=== PATIENT | female | born 1970 | race Caucasian/White ===

== ENCOUNTER 2022-06-01 18:31 | Emergency (ER) | payer OTHER, SELFPAY ==
--- NOTE | ~2022-06-01 | XR_ITS ---
EXAMINATION: XR CHEST CLINICAL INFORMATION: Chest pain. COMPARISON: None available. TECHNIQUE: Frontal portable view of the chest was obtained. 7:26 PM FINDINGS: No significant abnormality is noted involving the heart, lungs, mediastinum, bony thorax or soft tissues. XR/XR chest 1V IMPRESSION: Unremarkable examination.
--- NOTE | ~2022-06-01 | CT_ITS ---
EXAMINATION: CT ABDOMEN AND PELVIS WITH CONTRAST CLINICAL INFORMATION: Abdominal pain. COMPARISON: None available. TECHNIQUE: Multidetector volumetric images were obtained from the superior aspect of the liver through the pubic symphysis following administration 85 mL of Omnipaque 350 intravenous contrast. Sagittal and coronal reformatted images were obtained on the technologist's workstation. Oral contrast: No This CT examination was performed using dose optimization techniques as appropriate, variously including the following: *Automated exposure control *Adjustment of mA and/or kV according to patient size (this includes techniques or standardized protocols for targeted exams where dose is matched to indication/reason for exam; i.e. extremities or head) *Use of iterative reconstruction technique DLP: 1041. mGy-cm FINDINGS: LUNG BASES: The visualized lung bases are unremarkable. LIVER, GALLBLADDER, AND BILIARY TREE: Liver mildly enlarged measuring 23 cm superior inferior. There is no focal liver lesion. The gallbladder is unremarkable with no evidence of radiopaque gallstones, gallbladder wall thickening, or obvious pericholecystic inflammatory changes. PANCREAS: Unremarkable. SPLEEN: Unremarkable. ADRENAL GLANDS: Unremarkable. KIDNEYS AND URETERS: Horseshoe kidney. No renal or ureteral calculus. No hydronephrosis. BLADDER: Unremarkable. GASTROINTESTINAL TRACT: The small and large bowel are unremarkable. The appendix is unremarkable. ABDOMINAL WALL: No significant hernia is appreciated. LYMPH NODES: Normal. VASCULAR: Unremarkable. PELVIC VISCERA: Unremarkable. OSSEOUS STRUCTURES: Unremarkable. CT/CT abdomen pelvis w IV con IMPRESSION: 1. No acute abnormality CT scan abdomen pelvis. 2. Mild hepatomegaly. 3. Horseshoe kidney. Fleischner guidelines were followed.
[2022-06-01 18:39] VITALS: BP 142/90; PULSE 120; O2SAT 100
[2022-06-01 18:44] VITALS: BP 122/83; PULSE 110; RESP 22; TEMP 37.2; O2SAT 100; BMI 40.6
--- NOTE | 2022-06-01 19:03 | PC.NURSE ---
Report received from day shift RN. Awaiting provider eval.
[2022-06-01 19:09] VITALS: BP 119/84; PULSE 101; RESP 22; O2SAT 98
--- NOTE | 2022-06-01 19:15 | ECG_ITS ---
Test Reason : SEIZURE Blood Pressure : / mmHG Vent. Rate : 086 BPM Atrial Rate : 086 BPM P-R Int : 138 ms QRS Dur : 080 ms QT Int : 390 ms P-R-T Axes : -03 -25 016 degrees QTc Int : 466 ms Normal sinus rhythm Nonspecific T wave abnormality Prolonged QT Abnormal ECG When compared with ECG of 29-NOV-2017 22:37, Nonspecific T wave abnormality now evident in Anterior leads Referred By: Yakov Reyes Electronically Signed By:NIKI LYNN MD
--- NOTE | 2022-06-01 19:22 | ED_ITS ---
HPI - General Adult General Chief complaint: General Medical Stated complaint: ams ?seizure Time Seen by Provider: 06/01/22 19:03 Source: patient and family Mode of arrival: ambulatory Limitations: no limitations History of Present Illness HPI narrative: 51-year-old female with history of seizure disorder on Keppra 500 mg twice daily presents with a seizure. Patient had a seizure last night as well. Today's maría larios was not immediately Witness but significant other found her sleeping. She did lose control of her bladder and she did buy the back of her tongue on the right side. She denies any head injury, headache, nausea, vomiting, vision changes. She does have some generalized chest abdominal pain. Pain is moderate in nature. The pain is worse with movement and touch. She has had similar symptoms in the past when she has been postictal. She denies any drugs or alcohol. She denies any focal deficits. She agrees that she has been not specifically compliant with her medications. Patient does not drive. Patient describes her seizures symptoms as moderate to severe in nature. There are no c lear relieving features. With exacerbated by not taking her medications. Related Data Allergies Allergy/AdvReac Type Severity Reaction Status Date / Time iodine [IODINE] Allergy Unknown UNKNOWN Unverified 07/29/21 14:19 shellfish Allergy Unknown Uncoded 07/29/21 14:19 [facility] Social History Social History Advance Directives: No Advance Directives Information Provided: No Physical Exam ED Vital Signs: Vital Signs - 24 hr 06/01/22 18:44 06/01/22 19:09 Temperature 98.9 F Pulse Rate 110 H 101 H Respiratory Rate 22 H 22 H Blood Pressure 122/83 119/84 Pulse Oximetry 100 98 Oxygen Delivery Method Room Air Room Air BMI result Body Mass Index 40.6 GEN: Well developed, no acute distress, alert, oriented HEENT: Normocephalic, atraumatic, normal external ears, nose appears normal, no oropharyngeal edema or exudates Eyes: Normal to appearance Neck: Supple, no lymphadenopathy Respiratory: Talks in complete sentences, no respiratory distress, clear to auscultation bilaterally Cardiovascular: Regular rate and rhythm, no murmurs rubs or gallops Abdomen: Soft, diffusely tender with guarding but no rebound Chest wall: Tenderness to palpation Back: No CVA tenderness Extremities: No clubbing cyanosis or edema Neurologic: No focal neurologic deficits, cranial nerves 2-12 intact, strength is 5/5 bilaterally, gait normal Skin: No rash Course Course Course Narrative: 51-year-old female with history of seizure disorder presents with 2 seizures within the last 24 hours. She had 1 prior to arrival. She admits to being n oncompliant with her medications. This is the most likely etiology of her symptoms. Will obtain a basic metabolic panel to rule out other electrolyte deficiencies neck contribute. Also will order a alcohol screen. Patient has chest wall pain which I will get a chest x-ray to rule out any significant injury. She also has abdominal tenderness with guarding but no rebound. Given these findings, CT scan of the abdomen and pelvis seems reasonable to rule out any acute intra-abdominal process. Will provide patient with a dose of Keppra 500 mg orally and Tylenol for her pain and discomfort. Reevaluation(s) Reevaluation #1: patient is pending CT sccan abd for pain. Patient's care transitioned to Dr. Claros pending results. Time: 22:20 Medications Administered Discontinued Medications Generic Name Dose Route Start Last Admin Trade Name Freq PRN Reason Stop Dose Admin Acetaminophen 975 mg 06/01/22 19:17 06/01/22 19:57 Acetaminophen 325 Mg Tablet PO 06/01/22 19:18 975 mg ONCE ONE Administration Levetiracetam 500 mg 06/01/22 19:17 06/01/22 19:57 Levetiracetam 500 Mg Tablet PO 06/01/22 19:18 500 mg ONCE ONE Administration Medical Decision Making Medical Decision Making [facility] Narrative: 51-year-old female presents with seizure likely secondary to noncompliance with her Keppra medication. Fortunately, patient is not driving at this time and she has been given strict instructions not to drive until cleared by her neurologist. Patient has some abdominal tenderness which is concerning for an abdominal injury. Will obtain a CT scan the abdomen pelvis to rule this out. Patient complains of chest wall pain. I doubt acute cardiothoracic injury but will obtain an EKG and a chest x-ray to rule out any of these issues. Patient will have routine lab testing including a toxicology screen and a an ethanol level to rule out contributing features that could have caused her seizure. Differential Diagnosis Differential Diagnoses: The differential diagnosis associated with the presentation includes (Seizure disorder, medication noncompliance, electrolyte abnormality, hypoglycemia, substance use) Seizure disorder Lab Data MDM Lab Attestation statement: I reviewed the patient's lab results. 06/01/22 19:51 06/01/22 19:51 Labs: Lab Results 06/01/22 06/01/22 Range/Units 19:51 21:41 WBC 7.2 (4.8-10.8) X10*3/uL RBC 5.21 (4.20-5.50) X10*6/uL Hgb 15.3 (12.0-16.0) g/dl Hct 46.0 (37.0-47.0) % MCV 88.3 (80.0-98.0) fL MCH 29.4 (27.0-33.0) pg MCHC 33.3 (31.0-35.0) g/dl RDW 14.7 (11.0-16.0) % Plt Count 137 L (160-400) X10*3/uL MPV 14.2 H (9.4-12.3) fL Immature Gran % (Auto) 0.3 (0.0-0.4) % Neut % (Auto) 61.0 (45-73) % Lymph % (Auto) 29.1 (20-40) % [place] % (Auto) 6.8 (2-11) % Eos % (Auto) 2.2 (0-4) % Baso % (Auto) 0.6 (0-2) % Lymph # (Auto) 2.1 (1.2-4.9) X10*3/uL [place] # (Auto) 0.5 (0.1-1.2) X10*3/uL Eos # (Auto) 0.2 (0.0-0.4) X10*3/uL Baso # (Auto) 0.0 (0.0-0.2) X10*3/uL Abs Immat Gran (auto) 0.02 (0.00-0.03) X10*3/uL Absolute Neuts (auto) 4.4 (2.0-8.3) x10*3/uL Absolute Nucleated RBC 0.000 (0.0-0.012) X10*3/uL Nucleated RBC % (auto) 0.0 (0.0-0.2) /100WBC Sodium 140 (135-145) mmol/L Potassium 3.6 (3.3-5.1) mmol/L Chloride 109 H (96-108) mmol/L Carbon Dioxide 22 (22-29) mmol/L Anion Gap 13 (12-20) BUN 19 H (9-16) mg/dL Creatinine 0.72 (0.5-1.4) mg/dL Estim Creat Clear Calc 124.0 Estimated GFR > 60 Random Glucose 114 (60-115) mg/dL Calcium 8.9 (8.4-10.2) mg/dL Ethyl Alcohol < 10 mg/dL Independent Interpretation I performed an independent interpretation of an: EKG (Normal sinus rhythm heart rate 86, nonspecific T-wave changes noted in lead 3 and AVF, V2 through V6. No acute ST elevations or depressions, otherwise QTC is slightly prolonged.) and CT Scan Radiology Impression Discussion of test interpretation with radiology: I have reviewed the radiologist's reading. Independent Historian Clinical information obtained from an independent historian. History obtained from or confirmed by: Spouse Tests considered The following testing was considered but not selected: CT scan head and chest Prescription Management I considered prescription management with: Pain Medication Chronic Conditions Patient?s care impacted by: Other (Seizure disorder) Discharge Plan Discharge Clinical Impression: Seizure disorder, Abdominal pain, Acute chest wall pain Patient Disposition: Still a Patient Instructions: Abdominal Pain (ED), Recurrent Seizures in Adults (ED), Noncardiac Chest Pain (ED), Chest Wall Pain (ED) Additional Instructions: Plase make sure to take your medications as prescribed. Follow up with your neurologist in 1 week. No driving until cleared by your neurologist. Referrals: Aleyda Lua NP [Primary Care Provider] - 3 days
[2022-06-01 19:56] LABS: MANUAL DIFF FLAG NO
[2022-06-01] MEDS: Acetaminophen 325 MG TABLET 975 MG PO (19:57)
[2022-06-01] MEDS: levETIRAcetam 500 MG TABLET PO (19:57)
[2022-06-01 19:58] LABS: Basophils Percent Auto 0.6 % (0-2); Eosinophils Absolute Auto 0.2 X10*3/uL (0.0-0.4); Eosinophils Percent Auto 2.2 % (0-4); Hemoglobin 15.3 g/dl (12.0-16.0); Imm Gran Abs Auto 0.02 X10*3/uL (0.00-0.03); Imm Gran Pct Auto 0.3 % (0.0-0.4); Lymphocytes Absolute Auto 2.1 X10*3/uL (1.2-4.9); Lymphocytes Percent Auto 29.1 % (20-40); Mean Corpuscular HGB Conc 33.3 g/dl (31.0-35.0); Mean Corpuscular Hemoglobin 29.4 pg (27.0-33.0); Mean Corpuscular Volume 88.3 fL (80.0-98.0); Mean Platelet Volume 14.2 fL (9.4-12.3); Monocytes Absolute Auto 0.5 X10*3/uL (0.1-1.2); Monocytes Percent Auto 6.8 % (2-11); Neutrophils Absolute Auto 4.4 x10*3/uL (2.0-8.3); Platelet Count 137 X10*3/uL (160-400); Red Blood Count 5.21 X10*6/uL (4.20-5.50); Red Cell Distribution Width 14.7 % (11.0-16.0); White Blood Count 7.2 X10*3/uL (4.8-10.8)
[2022-06-01 22:12] LABS: Anion Gap 13 (12-20); Blood Urea Nitrogen 19 mg/dL (9-16); Calcium 8.9 mg/dL (8.4-10.2); Carbon Dioxide 22 mmol/L (22-29); Chloride 109 mmol/L (96-108); Estimated Glomerular Filt Rate > 60; Ethanol < 10 mg/dL; Glucose Random 114 mg/dL (60-115); Potassium 3.6 mmol/L (3.3-5.1); Sodium 140 mmol/L (135-145)
[2022-06-01] MEDS: iohexoL 350 MG/ML 100 ML INFUS..BTL IV (22:33)
[2022-06-02 00:03] VITALS: BP 104/65; PULSE 83; RESP 16; TEMP 36.6; O2SAT 99
== END 2022-06-02 00:39 | disposition home or self-care (01) ==
PROVIDERS: Emergency Provider Emergency Medicine; PCP Nurse Practitioner Family
DX: G40.909 Epilepsy, unspecified, not intractable, without status epilepticus (principal); R07.89 Other chest pain; R10.9 Unspecified abdominal pain; Z79.899 Other long term (current) drug therapy
CPT/HCPCS: 36415; 71045; 74177; 80048; 82077; 85025; 93005; 99284; Q9967

== ENCOUNTER 2023-05-16 23:56 | Inpatient (IN) | payer OTHER, SELFPAY ==
--- NOTE | ~2023-05-16 | US_ITS ---
EXAMINATION: US VENOUS ULTRASOUND WITH DOPPLER LOWER EXTREMITY, BILATERAL CLINICAL INFORMATION: Elevated d-dimer. The workup COMPARISON: None available. TECHNIQUE: Ultrasound of the deep veins is performed from the hip to the calf with compression sonography and color and pulse Doppler assessment. Spectral analysis with color-flow imaging is performed. FINDINGS: RIGHT: There is normal venous compression and respiratory variation and augmented flow. The visualized common femoral vein, superficial femoral vein, profunda femoral vein, popliteal vein, and the trifurcation region shows no evidence of deep venous thrombosis. There is no significant popliteal fossa cyst. LEFT: There is normal venous compression and respiratory variation and augmented flow. The visualized common femoral vein, superficial femoral vein, profunda femoral vein, popliteal vein, and the trifurcation region shows no evidence of deep venous thrombosis. There is no significant popliteal fossa cyst. If the patient's symptoms persist, followup ultrasound in 5 days 7 days might be of value to exclude proximal propagation from a non-visualized calf vein. US/US venous duplex LE BI IMPRESSION: No DVT demonstrated in the bilateral lower extremity.
--- NOTE | ~2023-05-16 | XR_ITS ---
EXAMINATION: XR CHEST CLINICAL INFORMATION: Excess ribs fracture COMPARISON: Chest radiograph from same day earlier TECHNIQUE: Frontal view of the chest was obtained. FINDINGS: There is progression of opacities seen throughout both lungs bilateral extensive airspace disease. Cardiomediastinal silhouette is obscured. Visualized ribs demonstrate no obvious fractures. XR/XR chest 1V IMPRESSION: Evidence of bilateral airspace
--- NOTE | ~2023-05-16 | NM_ITS ---
PULMONARY PERFUSION ONLY STUDY: CLINICAL INDICATION: Hypoxia. Concern for pulmonary thromboembolism. PROCEDURE: Following the intravenous administration of 4.1 millicuries technetium 99m MAA, images of the chest were obtained in multiple projections using a gamma scintiphotographic camera. COMPARISON: Chest radiograph and CT scan of the chest done on 05/17/2023. PERFUSION IMAGES: No segmental perfusion defects or other perfusion abnormalities are noted. NM/NM pul perfusion IMPRESSION: Based on perfusion only modified PIOPED 2 criteria, pulmonary thromboembolism is absent.
--- NOTE | ~2023-05-16 | CT_ITS ---
EXAMINATION: CT CHEST WITHOUT CONTRAST CLINICAL INFORMATION: Unusual chest x-ray, fever, cough COMPARISON: Chest x-ray from the same day TECHNIQUE: Multidetector volumetric CT imaging of the chest was done. Axial MIP volume rendering provided. Sagittal and coronal reformatted images were obtained. This CT examination was performed using dose optimization techniques as appropriate, variously including the following: *Automated exposure control *Adjustment of mA and/or kV according to patient size (this includes techniques or standardized protocols for targeted exams where dose is matched to indication/reason for exam; i.e. extremities or head) *Use of iterative reconstruction technique DLP: 404 mGy-cm FINDINGS: LUNGS: There is a symmetric distribution of extensive bilateral groundglass opacities with relative sparing of the lung periphery. There is limited evaluation for underlying nodules in this setting. MEDIASTINUM: Multiple scattered subcentimeter mediastinal lymph nodes, a few of which measure near the upper limits of normal in size and which may be reactive. Cardiac size is within normal limits; no pericardial effusion. Mild calcification at the aortic arch. CORONARY ARTERY CALCIFICATION: Scattered coronary artery calcifications. PLEURA: No pneumothorax or pleural effusion. AXILLA: No lymphadenopathy. UPPER ABDOMEN: Visualized spleen is mildly prominent. OSSEOUS STRUCTURES: Multilevel endplate osteophytes in the spine. CT/CT chest wo IV con IMPRESSION: 1. Symmetric distribution of extensive bilateral groundglass opacities with relative sparing of the lung periphery. In the proper clinical setting, this appearance can be seen with infection including viral pneumonia, though other considerations would include pulmonary edema, pulmonary hemorrhage, or potentially pulmonary alveolar proteinosis. Follow-up imaging within several weeks is recommended to assess for resolution. 2. Coronary artery calcifications. Correlation with cardiac risk factors is recommended.
--- NOTE | ~2023-05-16 | XR_ITS ---
EXAMINATION: XR CHEST CLINICAL INFORMATION: Fever and dyspnea COMPARISON: Chest radiograph 06/01/2022 TECHNIQUE: Frontal view of the chest was obtained. FINDINGS: Multifocal reticular nodular opacities are seen throughout the lungs which are new when compared to the prior study. Heart size is normal. Given the history of fever and dyspnea, findings may represent diffuse pneumonia. Neoplasm is less likely. No pleural effusions are seen. Heart size normal. The bony thorax is unremarkable. There is an old healed left clavicular fracture. XR/XR chest 1V IMPRESSION: Multifocal reticular nodular opacities throughout the lungs. Findings may represent diffuse pneumonia. CT scan would be useful for further evaluation.
[2023-05-17] VITALS (25 sets, daily range): BP systolic 112–143; BP diastolic 62–87; PULSE 64–100; RESP 4–98; TEMP 36.4–37.1; O2SAT 4–98; BMI 40.3; BMI 40.0
--- NOTE | 2023-05-17 00:02 | ECG_ITS ---
Test Reason : SOB Blood Pressure : / mmHG Vent. Rate : 086 BPM Atrial Rate : 086 BPM P-R Int : 160 ms QRS Dur : 078 ms QT Int : 350 ms P-R-T Axes : 038 -09 025 degrees QTc Int : 418 ms Normal sinus rhythm Low voltage QRS Nonspecific T wave abnormality Abnormal ECG When compared with ECG of 01-JUN-2022 20:04, QT has shortened Referred By: Kenn Robles Electronically Signed By:Alberto Goldstein
--- NOTE | 2023-05-17 00:10 | ED_ITS ---
HPI - General Adult General Chief complaint: Dyspnea Stated complaint: sob Time Seen by Provider: 05/17/23 00:09 History of Present Illness HPI narrative: Patient is a 52-year-old woman who says that she is felt unwell for about 2 days ago with fever and a cough. Paramedics were called because she felt very short of breath tonight. Paramedics measured a temperature of 101 degrees. She has had some mild nausea and minimal vomiting. No urinary symptoms except that she loses urine when she coughs. Related Data Home Medications Medication Instructions Recorded Confirmed albuterol sulfate 90 mcg/actuation 2 puff inhalation Q4H PRN wheezing 05/17/23 05/17/23 aerosol inhaler blood sugar diagnostic (FreeStyle 05/17/23 Lite Strips) cholecalciferol (vitamin D3) 50 50 mcg PO DAILY 05/17/23 05/17/23 mcg (2,000 unit) tablet (Vitamin D3) cyclobenzaprine 10 mg tablet 10 mg PO BID PRN muscle spasm 05/17/23 05/17/23 duloxetine 60 mg capsule,delayed 60 mg PO DAILY 05/17/23 05/17/23 release gabapentin 800 mg tablet 800 mg PO DAILY 05/17/23 05/17/23 ipratropium 0.5 mg-albuterol 3 mg 3 ml inhalation Q6H 05/17/23 05/17/23 (2.5 mg base)/3 mL nebulization soln levothyroxine 137 mcg tablet 137 mcg PO DAILY 05/17/23 05/17/23 nabumetone 750 mg tablet 750 mg PO BID 05/17/23 05/17/23 omeprazole 20 mg capsule,delayed 20 mg PO DAILY 05/17/23 05/17/23 release trazodone 50 mg tablet 50 mg PO BEDTIME 05/17/23 05/17/23 umeclidinium 62.5 mcg/actuation 1 inh inhalation DAILY 05/17/23 05/17/23 blister powder for inhalation (Incruse Ellipta) Allergies Allergy/AdvReac Type Severity Reaction Status Date / Time iodine [IODINE] Allergy Unknown UNKNOWN Verified 05/17/23 00:29 shellfish Allergy Unknown Anaphylaxis Uncoded 05/17/23 00:29 Review of Systems 2 Review of Systems: Yes all other systems are reviewed and are negative [facility] Past Medical History Medical History Hypothyroidism GERD (gastroesophageal reflux disease) Mood disorder COPD (chronic obstructive pulmonary disease) Social History Social History Alcohol intake: former Patient Tobacco Use Status: Current everyday Tobacco user Smoked in Last 30 Days: Yes Use of substances other than those prescribed or required for medical reasons: No Advance Directives: No Advance Directives Information Provided: Yes Nutrition Risks: No Nutritional Risk Patient : No Physical Exam ED Vital Signs: Vital Signs - 24 hr 05/17/23 00:04 05/17/23 00:22 05/17/23 03:00 Temperature 98.6 F Pulse Rate 91 93 Respiratory Rate 30 H 28 H 28 H Blood Pressure 112/62 Pulse Oximetry 4 L Oxygen Delivery Method Nasal Cannula 05/17/23 05:49 Temperature Pulse Rate 100 Respiratory Rate 30 H Blood Pressure 126/67 Pulse Oximetry 92 Oxygen Delivery Method High Flow Nasal Cannula BMI result Body Mass Index 40.3 Const Other: The patient is an obese 52-year-old who looks older than her age. She was tachypneic and looked acutely ill. She was coughing frequently and having obvious discomfort with coughing. She looked quite pale. HENMT Other: Face is symmetrical. Poor dentition. Mucous membranes not obviously dry. Eyes Other: Pupils are round equal, conjunctivae clear, extraocular movements intact Neck Other: No JVD, no adenopathy Resp Other: The patient showed increased work of breathing, frequent coughing, and tachypnea. Breath sounds were diminished but without aditi wheezing or crackles. Cardio Rate: regular rate Rhythm: regular rhythm Heart sounds: S1 normal heart sound present and S2 normal heart sound present GI Other: Abdomen is soft and nontender Skin Other: Skin is pale and dry Neuro Other: The patient was awake but seemed very fatigued. She did not seem frankly disoriented but quite worn out. Speech was clear. Eye movements intact. Face symmetrical. Moves her extremities symmetrically. No focal deficit. Extrem Other: No calf swelling or tenderness, no asymmetry, no edema Medications Administered Generic Name Dose Route Start Last Admin Trade Name Freq PRN Reason Stop Dose Admin Albuterol/Ipratropium 3 ml 05/17/23 08:00 05/17/23 11:18 Albuterol/Iprat 2.5/0.5mg 3 Ml Ampul.Neb INHALE 3 ml RQ4H WHILE AWAKE EMEKA Administration Benzonatate 200 mg 05/17/23 05:50 05/17/23 12:49 Benzonatate 100 Mg Capsule PO 200 mg TID PRN Administration Cough Enoxaparin Sodium 40 mg 05/17/23 06:00 05/17/23 06:23 Enoxaparin Sodium 40 Mg/0.4 Ml Syringe SUBCUT 40 mg Q24H EMEKA Administration Azithromycin 500 mg/ Sodium 250 mls @ 125 mls/hr 05/17/23 06:00 05/17/23 09:38 Chloride IV Infused Q24H EMEKA Infusion Methylprednisolone Sodium Succinate 40 mg 05/17/23 06:00 05/17/23 06:23 Methylprednisolone Sod Succ 40 Mg/Ml Vial IVPUSH 40 mg Q12H EMEKA Administration Sodium Chloride 3 ml 05/17/23 08:00 05/17/23 07:52 0.9 % Sodium Chloride Flush 3 Ml Syringe IVFLUSH Not Given QSHIFT EMEKA Discontinued Medications Generic Name Dose Route Start Last Admin Trade Name Freq PRN Reason Stop Dose Admin Albuterol Sulfate 2.5 mg/ 0 mg 05/17/23 00:17 05/17/23 00:19 Albuterol/Ipratropium 3 ml INHALE 05/17/23 00:18 7.5 dose ONCE ONE Administration Sodium Chloride 1,000 mls @ 999 mls/hr 05/17/23 00:15 05/17/23 01:31 Ns IV 05/17/23 01:15 Infused .Q1H1M EMEKA Infusion Ceftriaxone Sodium 2 gm/ 50 mls @ 100 mls/hr 05/17/23 00:53 05/17/23 01:27 Sodium Chloride IV 05/17/23 01:22 Infused ONCE ONE Infusion Azithromycin 500 mg/ Sodium 250 mls @ 125 mls/hr 05/17/23 00:54 05/17/23 03:48 Chloride IV 05/17/23 02:53 Infused ONCE ONE Infusion Morphine Sulfate 2 mg 05/17/23 05:49 05/17/23 06:22 Morphine Sulfate 2 Mg/Ml Cartridge IVPUSH 05/17/23 05:50 2 mg ONCE ONE Administration Protocol Medical Decision Making Medical Decision Making MDM Narrative: The patient arrived looking quite acutely ill with respiratory symptoms. She was seen promptly. She has a history of pneumonia. She has an underlying history of smoking and COPD. She denies IV drug use. She denies history of HIV. Blood cultures were obtained and she was started on ceftriaxone and azithromycin. She required significant supplemental oxygen. Respiratory therapy gave large doses of bronchodilator treatments. She remained tachypneic. She was coughing a great deal and this was clearly causing her a great deal of discomfort. She was given Hycodan for discomfort. Although she was not wheezing she was also given methylprednisolone. Her chest x-ray showed bilateral multifocal infiltrates with a recommendation for a CT scan. The patient has an iodine allergy. A noncontrast CT was done that showed diffuse bilateral ground-glass infiltrates. Ultimately the patient continued to look quite uncomfortable and tachypneic and she was placed on high-flow nasal cannula. This seemed to help relieve her distress quite a lot. She will be admitted to the hospitalist service. Lab Data 05/17/23 08:00 05/17/23 08:00 Labs: Lab Results 05/17/23 05/17/23 05/17/23 Range/Units 00:31 00:31 00:39 WBC 12.4 H (4.8-10.8) X10*3/uL RBC 4.40 (4.20-5.50) X10*6/uL Hgb 13.4 (12.0-16.0) g/dl Hct 40.1 (37.0-47.0) % MCV 91.1 (80.0-98.0) fL MCH 30.5 (27.0-33.0) pg MCHC 33.4 (31.0-35.0) g/dl RDW 13.6 (11.0-16.0) % Plt Count 120 L (160-400) X10*3/uL MPV 14.4 H (9.4-12.3) fL Immature Gran % (Auto) 0.2 (0.0-0.4) % Neut % (Auto) 88.8 H (45-73) % Lymph % (Auto) 6.5 L (20-40) % [place] % (Auto) 3.8 (2-11) % Eos % (Auto) 0.5 (0-4) % Baso % (Auto) 0.2 (0-2) % Lymph # (Auto) 0.8 L (1.2-4.9) X10*3/uL [place] # (Auto) 0.5 (0.1-1.2) X10*3/uL Eos # (Auto) 0.1 (0.0-0.4) X10*3/uL Baso # (Auto) 0.0 (0.0-0.2) X10*3/uL Abs Immat Gran (auto) 0.03 (0.00-0.03) X10*3/uL Absolute Neuts (auto) 11.0 H (2.0-8.3) x10*3/uL Absolute Nucleated RBC 0.000 (0.0-0.012) X10*3/uL Nucleated RBC % (auto) 0.0 (0.0-0.2) /100WBC PT 13.8 H (11.1-13.3) SEC INR 1.1 (0.9-1.1) VBG pH 7.42 (7.32-7.43) VBG pCO2 31 mmHg VBG pO2 49 mmHg VBG HCO3 20 L (22-26) mmol/L VBG O2 Saturation 80.0 % VBG Base Excess -2.5 mmol/L Sodium 140 (135-145) mmol/L Potassium 3.8 (3.3-5.1) mmol/L Chloride 110 H (96-108) mmol/L Carbon Dioxide 19 L (22-29) mmol/L Anion Gap 15 (12-20) BUN 11 (9-16) mg/dL Creatinine 0.73 (0.5-1.4) mg/dL Estim Creat Clear Calc 120.4 Estimated GFR > 60 Random Glucose 117 H (60-115) mg/dL Lactic Acid 1.5 (0.5-2.0) mmol/L Calcium 9.4 (8.4-10.2) mg/dL Magnesium 1.7 (1.6-2.6) mg/dL Total Bilirubin 0.9 (0.0-1.0) mg/dL Direct Bilirubin 0.4 (0.0-0.5) mg/dL AST 17 (5-31) U/L ALT 10 (0-31) U/L Alkaline Phosphatase 76 (39-117) U/L Troponin I High Sens < 2.7 (<3.5-17.0) ng/L C-Reactive Protein 19.81 H (< or = 0.50) mg/dL B-Natriuretic Peptide 63 (<100) pg/mL Total Protein 7.3 (6.5-8.0) g/dL Albumin 3.7 (3.5-5.0) g/dL Beta HCG, Quant < 2 Cancelled mIU/mL Urine Color Urine Appearance Urine pH (5.0-9.0) Ur Specific [place] (1.005-1.025) Urine Protein (Neg-Trace) mg/dL Urine Glucose (UA) (Negative) mg/dL Urine Ketones (Negative) mg/dL Urine Blood (Negative) Urine Nitrite (Negative) Ur Leukocyte Esterase (Negative) Urine RBC (0-2) /HPF Urine WBC (0-5) /HPF Ur Squamous Epith Cells (0-2) /HPF Urine Bacteria (None Seen) Hyaline Casts (0-2) /LPF Ethyl Alcohol < 10 mg/dL Influenza Type A (PCR) NEGATIVE (Negative) Influenza Type B (PCR) NEGATIVE (Negative) RSV RNA Qual (PCR) NEGATIVE (Negative) SARS-CoV-2 RNA (RT-PCR) NEGATIVE (Negative) 05/17/23 Range/Units 02:55 WBC (4.8-10.8) X10*3/uL RBC (4.20-5.50) X10*6/uL Hgb (12.0-16.0) g/dl Hct (37.0-47.0) % MCV (80.0-98.0) fL MCH (27.0-33.0) pg MCHC (31.0-35.0) g/dl RDW (11.0-16.0) % Plt Count (160-400) X10*3/uL MPV (9.4-12.3) fL Immature Gran % (Auto) (0.0-0.4) % Neut % (Auto) (45-73) % Lymph % (Auto) (20-40) % [place] % (Auto) (2-11) % Eos % (Auto) (0-4) % Baso % (Auto) (0-2) % Lymph # (Auto) (1.2-4.9) X10*3/uL [place] # (Auto) (0.1-1.2) X10*3/uL Eos # (Auto) (0.0-0.4) X10*3/uL Baso # (Auto) (0.0-0.2) X10*3/uL Abs Immat Gran (auto) (0.00-0.03) X10*3/uL Absolute Neuts (auto) (2.0-8.3) x10*3/uL Absolute Nucleated RBC (0.0-0.012) X10*3/uL Nucleated RBC % (auto) (0.0-0.2) /100WBC PT (11.1-13.3) SEC INR (0.9-1.1) VBG pH (7.32-7.43) VBG pCO2 mmHg VBG pO2 mmHg VBG HCO3 (22-26) mmol/L VBG O2 Saturation % VBG Base Excess mmol/L Sodium (135-145) mmol/L Potassium (3.3-5.1) mmol/L Chloride (96-108) mmol/L Carbon Dioxide (22-29) mmol/L Anion Gap (12-20) BUN (9-16) mg/dL Creatinine (0.5-1.4) mg/dL Estim Creat Clear Calc Estimated GFR Random Glucose (60-115) mg/dL Lactic Acid (0.5-2.0) mmol/L Calcium (8.4-10.2) mg/dL Magnesium (1.6-2.6) mg/dL Total Bilirubin (0.0-1.0) mg/dL Direct Bilirubin (0.0-0.5) mg/dL AST (5-31) U/L ALT (0-31) U/L Alkaline Phosphatase (39-117) U/L Troponin I High Sens (<3.5-17.0) ng/L C-Reactive Protein (< or = 0.50) mg/dL B-Natriuretic Peptide (<100) pg/mL Total Protein (6.5-8.0) g/dL Albumin (3.5-5.0) g/dL Beta HCG, Quant mIU/mL Urine Color Yellow Urine Appearance Clear Urine pH 6.0 (5.0-9.0) Ur Specific [place] 1.025 (1.005-1.025) Urine Protein Negative (Neg-Trace) mg/dL Urine Glucose (UA) Negative (Negative) mg/dL Urine Ketones Trace (Negative) mg/dL Urine Blood Negative (Negative) Urine Nitrite Positive H (Negative) Ur Leukocyte Esterase Negative (Negative) Urine RBC 0-2 (0-2) /HPF Urine WBC 0-5 (0-5) /HPF Ur Squamous Epith Cells 3-5 (0-2) /HPF Urine Bacteria 2+ (None Seen) Hyaline Casts 0-2 (0-2) /LPF Ethyl Alcohol mg/dL Influenza Type A (PCR) (Negative) Influenza Type B (PCR) (Negative) RSV RNA Qual (PCR) (Negative) SARS-CoV-2 RNA (RT-PCR) (Negative) Critical Care Time Critical Care Time Total Critical Care Time: 45 Attestation: The patient was critically ill with a high probability of imminent or life- threatening deterioration. ?I spent greater than 30 minutes of discontinuous time evaluating the patient, delivering critical care at the bedside, discussing evaluating data with consultants. ?Critical care time does not include time spent performing separately billable procedures or teaching. ?Time spent performing critical care with 45 minutes. Discharge Plan Discharge Clinical Impression: Bilateral pneumonia, Acute respiratory distress Patient Disposition: Admitted As Inpatient
[2023-05-17] MEDS: Albuterol Sulfate 2.5 MG, Albuterol/Iprat 2.5/0.5MG 3 ML 3 ML INHALE (00:19)
[2023-05-17] MEDS: 0.9 % Sodium Chloride 1,000 ML 999 ML IV (00:30)
--- NOTE | 2023-05-17 00:34 | PC.NURSE ---
MD and RT at bedside, patient placed on NC 4 LPM, patient maintaining stable O2 Sat 91-95%, RR 33-41. Patient afebrile, T 98.6 oral. check weigher applied, EKG completed, labs drawn and sent to lab for processing. Pure wick applied and connected to wall suction. Call mayen within patient's reach.
[2023-05-17 00:43] LABS: MANUAL DIFF FLAG NO
[2023-05-17 00:46] LABS: VBG Base Excess -2.5 mmol/L; VBG HCO3 20 mmol/L (22-26); VBG pCO2 31 mmHg; VBG pH 7.42 (7.32-7.43); VBG pO2 49 mmHg
[2023-05-17 00:47] LABS: Venous Blood Gas Refer to POC result
[2023-05-17 00:47] LABS: Basophils Percent Auto 0.2 % (0-2); Eosinophils Absolute Auto 0.1 X10*3/uL (0.0-0.4); Eosinophils Percent Auto 0.5 % (0-4); Hematocrit 40.1 % (37.0-47.0); Hemoglobin 13.4 g/dl (12.0-16.0); Imm Gran Abs Auto 0.03 X10*3/uL (0.00-0.03); Imm Gran Pct Auto 0.2 % (0.0-0.4); Lymphocytes Absolute Auto 0.8 X10*3/uL (1.2-4.9); Lymphocytes Percent Auto 6.5 % (20-40); Mean Corpuscular HGB Conc 33.4 g/dl (31.0-35.0); Mean Corpuscular Hemoglobin 30.5 pg (27.0-33.0); Mean Corpuscular Volume 91.1 fL (80.0-98.0); Mean Platelet Volume 14.4 fL (9.4-12.3); Monocytes Absolute Auto 0.5 X10*3/uL (0.1-1.2); Monocytes Percent Auto 3.8 % (2-11); Neutrophils Percent Auto 88.8 % (45-73); Platelet Count 120 X10*3/uL (160-400); Red Cell Distribution Width 13.6 % (11.0-16.0); White Blood Count 12.4 X10*3/uL (4.8-10.8)
[2023-05-17 00:50] LABS: INTERNATIONAL NORM RATIO 1.1 (0.9-1.1); Prothrombin Time 13.8 SEC (11.1-13.3)
[2023-05-17 00:55] LABS: Lactic Acid 1.5 mmol/L (0.5-2.0)
[2023-05-17] MEDS: cefTRIAXone sodium 2 GM in 0.9 % Sodium Chloride 50 ML IV (00:57)
[2023-05-17 01:06] LABS: B Type Natriuretic Peptide 63 pg/mL (<100)
[2023-05-17 01:07] LABS: Troponin-I High Sensitivity < 2.7 ng/L (<3.5-17.0)
[2023-05-17] MEDS: Azithromycin 500 MG in 0.9 % Sodium Chloride 250 ML 125 MG IV ×2 (01:41→06:23)
[2023-05-17 05:47] LABS: Influenza A PCR NEGATIVE (Negative); Influenza B PCR NEGATIVE (Negative); Resp Syncy Virus RNA Qual PCR NEGATIVE (Negative); SARS COV2 PCR INHOUSE NEGATIVE (Negative)
[2023-05-17 05:51] LABS: Alanine Aminotransferase 10 U/L (0-31); Albumin Level 3.7 g/dL (3.5-5.0); Alkaline Phosphatase 76 U/L (39-117); Anion Gap 15 (12-20); Aspartate Amino Transferase 17 U/L (5-31); Bilirubin Direct 0.4 mg/dL (0.0-0.5); Bilirubin Total 0.9 mg/dL (0.0-1.0); Blood Urea Nitrogen 11 mg/dL (9-16); C Reactive Protein 19.81 mg/dL (< or = 0.50); Calcium 9.4 mg/dL (8.4-10.2); Carbon Dioxide 19 mmol/L (22-29); Chloride 110 mmol/L (96-108); Creatinine Clr Calc Pharmacy 120.4; Estimated Glomerular Filt Rate > 60; Ethanol < 10 mg/dL; Glucose Random 117 mg/dL (60-115); HCG Quantitative < 2 mIU/mL; Magnesium 1.7 mg/dL (1.6-2.6); Potassium 3.8 mmol/L (3.3-5.1); Sodium 140 mmol/L (135-145); Total Protein 7.3 g/dL (6.5-8.0)
--- NOTE | 2023-05-17 05:52 | P.HPHOSP_ITS ---
History of Present Illness Date of Service: 05/17/23 Chief Complaint: Dyspnea This is a 52 year old female with pertinent history of COPD not on home oxygen, mood disorder, hypothyroidism, gastroesophageal reflux disease who presents to the emergency department for evaluation of dyspnea, fever and cough. Patient states her symptoms started 2 days prior to presentation. Patient started having dyspnea which is worse with exertion. Also has been having intermittent productive cough. Endorses associated wheezing. States she took temperature at home and it was 101 degrees F. Admits nausea. Patient states she does have a history of recurrent pneumonia and is a former smoker. No chest discomfort, palpitations, orthopnea, PND, abdominal pain, changes in urinary or bowel habits. In the emergency department, patient was found to be septic. Imaging with bilateral ground-glass opacities. WBC found to be elevated Review of Systems 2 Constitutional: Constitutional: Reports fatigue, Reports lethargy, Reports malaise and Reports weakness Cardiovascular: Cardiovascular: Reports dyspnea on exertion Respiratory: Respiratory: Reports cough, Reports dyspnea on exertion and Reports wheezing Neurologic: Reports weakness Endocrine: Endocrine: Reports fatigue Allergic/Immunologic: Allergic/Immunologic: Reports wheezing [facility] Medical History Hypothyroidism GERD (gastroesophageal reflux disease) Mood disorder COPD (chronic obstructive pulmonary disease) Pertinent family history: No family history of early CAD Social History Alcohol intake: former Smoked in Last 30 Days: Yes Use of substances other than those prescribed or required for medical reasons: No Advance Directives: No Advance Directives Information Provided: Yes Patient : No Meds Allergies Allergy/AdvReac Type Severity Reaction Status Date / Time iodine [IODINE] Allergy Unknown UNKNOWN Verified 05/17/23 00:29 shellfish Allergy Unknown Anaphylaxis Uncoded 05/17/23 00:29 Active Medications: Current Medications Morphine Sulfate (Morphine Sulfate 2 Mg/Ml Cartridge) 2 mg IVPUSH ONCE ONE; Protocol Stop: 05/17/23 05:50 Physical Exam 2 Vital Signs and Narrative: Vital Signs: Last Vital Signs Temp 98.6 F 05/17/23 00:04 Pulse 100 05/17/23 05:49 Resp 30 H 05/17/23 05:49 BP 126/67 05/17/23 05:49 Pulse Ox 92 05/17/23 05:49 O2 Del Method High Flow Nasal C annula 05/17/23 05:49 BMI result Body Mass Index 40.3 Middle-aged female lying in bed in distress on supplemental oxygen Neck supple, no JVD Regular rate and rhythm, S1-S2 heard Tachypnea with wheezing and crackles Abdomen soft nontender, no guarding, no rigidity Patient is awake, alert and oriented to self, place, time and person ; no focal motor deficit Psych: Normal mood No pedal edema Results Labs 05/17/23 00:31 05/17/23 00:31 Labs: Laboratory Results - last 24 hr 05/17/23 05/17/23 05/17/23 00:31 00:31 00:39 MCV 91.1 MCH 30.5 MCHC 33.4 RDW 13.6 Plt Count 120 L MPV 14.4 H Immature Gran % (Auto) 0.2 Neut % (Auto) 88.8 H Lymph % (Auto) 6.5 L [place] % (Auto) 3.8 Eos % (Auto) 0.5 Baso % (Auto) 0.2 Lymph # (Auto) 0.8 L [place] # (Auto) 0.5 Eos # (Auto) 0.1 Baso # (Auto) 0.0 Abs Immat Gran (auto) 0.03 Absolute Neuts (auto) 11.0 H Absolute Nucleated RBC 0.000 Nucleated RBC % (auto) 0.0 PT 13.8 H INR 1.1 VBG pH 7.42 VBG pCO2 31 VBG pO2 49 VBG HCO3 20 L VBG O2 Saturation 80.0 VBG Base Excess -2.5 Anion Gap 15 Estim Creat Clear Calc 120.4 Estimated GFR > 60 Random Glucose 117 H Lactic Acid 1.5 Calcium 9.4 Magnesium 1.7 Total Bilirubin 0.9 Direct Bilirubin 0.4 AST 17 ALT 10 Alkaline Phosphatase 76 Troponin I High Sens < 2.7 C-Reactive Protein 19.81 H B-Natriuretic Peptide 63 Total Protein 7.3 Albumin 3.7 Beta HCG, Quant < 2 Cancelled Ethyl Alcohol < 10 Influenza Type A (PCR) NEGATIVE Influenza Type B (PCR) NEGATIVE RSV RNA Qual (PCR) NEGATIVE SARS-CoV-2 RNA (RT-PCR) NEGATIVE Imaging Radiologist's Impressions: Impressions Chest X-Ray 05/17/23 00:16 IMPRESSION: Multifocal reticular nodular opacities throughout the lungs. Findings may represent diffuse pneumonia. CT scan would be useful for further evaluation. Assessment and Plan (1) Hypoxia: Status: Acute (2) Pneumonia: Status: Acute (3) Sepsis: Status: Acute Plan This is a 52 year old female with pertinent history of COPD not on home oxygen, mood disorder, hypothyroidism, gastroesophageal reflux disease who presents to the emergency department for evaluation of dyspnea, fever and cough. #. Acute hypoxemic respiratory failure and sepsis due to pneumonia leading to acute exacerbation of COPD: Will admit patient with supplemental oxygen. Initiating empiric IV antibiotics. Lactic acid and blood culture/sputum culture obtained. Resuscitated with IV crystalloids. Also initiating systemic IV steroids. Scheduled and p.r.n. DuoNebs. Imaging with symmetric distribution of extensive bilateral ground-glass opacities and patient does have a history of recurrent pneumonia. Consulting anna tejeda assistance. Continue home inhalers #. Hypothyroidism: On Synthroid #. Gastroesophageal reflux disease: On PPI #. Mood disorder: Continue home mood stabilizers Med rec pending DVT prophylaxis: Lovenox Full Code Admit as inpatient and will require two night minimum hospital stay for supplemental oxygen, IV antibiotics (as above), which is not possible in a lesser acute setting. Specialist consult pending Quality Stroke Does the patient have a stroke diagnosis?: No VTE Prior VTE?: No VTE Risk Level:: Medical - moderate - high VTE Device Contraindication: Treatment Not Indicated VTE Drug Contraindication: N/A - Med Ordered
[2023-05-17] MEDS: Morphine Sulfate 2 MG/ML CARTRIDGE IVPUSH ×2 (06:22→16:39)
[2023-05-17] MEDS: methylPREDNISolone Sod Succ 40 MG/ML VIAL IVPUSH ×2 (06:23→18:31)
[2023-05-17] MEDS: Enoxaparin Sodium 40 MG/0.4 ML SYRINGE SUBCUT (06:23)
--- NOTE | 2023-05-17 06:36 | PC.NURSE ---
Patient is alert and oriented x3. She continues to c/o 3/10 chest tightness/pain d/t non-productive cough. Patient is afebrile. Patient is on high flow NC, saturating 94%, RR 35, BP 125/71, P 91. Patient medicated per APR. Call mayen in patient's reach.
[2023-05-17 06:37] LABS: Appearance Urine Clear; Color Urine Yellow; Glucose Urine UA Negative (Negative); Leukocyte Esterase Urine Negative (Negative); Nitrite Urine Positive (Negative); Specific Gravity - Urine 1.025 (1.005-1.025); UMIC TRIGGER UACC YES; Urine Blood Negative (Negative); Urine Ketones Trace mg/dL (Negative); Urine Protein Negative (Neg-Trace)
[2023-05-17 06:38] LABS: RBC Urine 0-2 /HPF (0-2); UACC Culture Trigger YES; WBC Urine 0-5 /HPF (0-5)
[2023-05-17 06:39] LABS: Bacteria Urine 2+ (None Seen); Hyaline Casts Urine 0-2 /LPF (0-2)
--- NOTE | 2023-05-17 07:00 | CA_ITS ---
Transthoracic Echocardiogram Patient (Last, First, Middle): Emely Desai M Gender: Female Date of : 1970 Age: 52 Procedure Date: 05/17/2023 Procedure Type: Transthoracic Echocardiogram Location: ER Height: 170.18 cm Weight: 116.58 kg BSA: 2.25 m2 Heart Rate: 97 bpm BP: 132 / 54 mmHg Roofer Helper: SANDRITA Referring MD: Abisai Mcdowell MD Symptoms: Dyspnea Study Quality: Fair ECG Rhythm: Sinus Conclusions: - Normal left ventricular cavity size. The left ventricular systolic function is hyperdynamic. The visually estimated ejection fraction is >70%. Diastolic function is indeterminate on the basis of available data. - The mid inferior segment is akinetic. - Normal right ventricular cavity size and systolic function. - There is mild dilatation of the ascending aorta measuring 3.80 cm. Findings Procedure Information Contrast agent, definity, is being given per protocol without apparent complications. The quality of the study was technically difficult. The study quality is limited by the patients inability to tolerate the test, patients body habitus, and lung artifact. Left Ventricle Normal left ventricular cavity size. The left ventricular systolic function is hyperdynamic. The visually estimated ejection fraction is >70%. Diastolic function is indeterminate on the basis of available data. Wall Motion Rest Echo Findings The mid inferior segment is akinetic. Right Ventricle Normal right ventricular cavity size and systolic function. Atria The left atrium was not well visualized. Aortic Valve Normal aortic valve structure and function. There is no aortic valve stenosis. There is no aortic valve regurgitation. Mitral Valve The mitral valve appears normal. There is no mitral valve regurgitation. There is no mitral valve stenosis. Pulmonic Valve The pulmonic valve is likely normal. There is no pulmonic valve regurgitation. Tricuspid Valve Normal tricuspid valve structure. There is no tricuspid valve regurgitation. Normal right atrial pressure. Great Vessels There is mild dilatation of the ascending aorta measuring 3.80 cm. Venous The inferior vena cava is normal in size and collapses greater than 50% with inspiration. Pericardium/Pleural There is no evidence of pericardial effusion. Measurements 2D Linear Measurements LA Diam: 3.80 2.7-3.8/3.0-4.0 cm LAIDs Index: 1.69 1.5-2.3 cm/m2 LVOT Diam: 2.10 3.0+(-)1.3 cm 2D Systolic Function EF 4C: 71.70 >55% Mitral Valve MV Pk E: 1.14 MV PK A: 1.30 MV Decel Time: 226.00 E/A: 0.90 E'Lateral: 9.14 E'Medial: 13.10 E/E' Med: 8.70 E/E' Lat: 12.50 PHT: 66.00 MVA PHT: 3.33 Decel Ross: 5.05 Aortic Valve AoV Pk William: 1.69 AoV Pk Grad: 11.00 SUMA: 3.66 LVOT LVOT Pk William: 1.79 LVOT Mn William: 1.42 LVOT VTI: 0.36 LVOT Pk Grad: 13.00 LVOT Mn Grad: 9.00 LVOT Diam: 2.10 LVOT Area: 3.46 Diastolic Function MV Pk E: 1.14 MV Pk A: 1.30 E/A: 0.90 E'Medial: 13.10 E/E' Med: 8.70 E' Laterial: 9.14 E/E' Lat: 12.50 Tricuspid Valve RA Press: 3.00 Great Vessels Aorta Sinus of Valsalva: 3.00 2.0-3.5 cm Ao Asc: 3.80 2.1-3.4 cm Pulmonary Valve PV Pk William: 1.11 Peak PV Grad: 5.00 Updated in Other Vendor System with Status of Final Alberto Goldstein MD electronically signed on 05/17/2023 4:08:40 PM with status of Final
--- NOTE | 2023-05-17 07:21 | PC.NURSE ---
Resmed care of patient, High flow remains in place, pt sating 92%, Pt having intermit coughing episodes with increased breathing after. L AC IV no longer flushing.
[2023-05-17] MEDS: Albuterol/Iprat 2.5/0.5MG 3 ML AMPUL.NEB INHALE ×4 (07:32→19:46)
--- NOTE | 2023-05-17 07:40 | PC.NURSE ---
New IV placed, pt continues to be breathing 22-26, coughing, pt is pale, and diaphoretic, temp 97% resp at bedside given treatment. POC checked at this time.
[2023-05-17 08:34] LABS: Anion Gap 14 (12-20); Blood Urea Nitrogen 12 mg/dL (9-16); Calcium 8.8 mg/dL (8.4-10.2); Carbon Dioxide 18 mmol/L (22-29); Chloride 113 mmol/L (96-108); Creatinine Clr Calc Pharmacy 123.8; Estimated Glomerular Filt Rate > 60; Glucose Random 148 mg/dL (60-115); Potassium 3.6 mmol/L (3.3-5.1); Sodium 141 mmol/L (135-145)
[2023-05-17 08:57] LABS: Hematocrit 38.6 % (37.0-47.0); Hemoglobin 12.5 g/dl (12.0-16.0); Mean Corpuscular HGB Conc 32.4 g/dl (31.0-35.0); Mean Corpuscular Hemoglobin 29.8 pg (27.0-33.0); Mean Corpuscular Volume 91.9 fL (80.0-98.0); Platelet Count 107 X10*3/uL (160-400); Red Cell Distribution Width 13.6 % (11.0-16.0); White Blood Count 13.3 X10*3/uL (4.8-10.8)
[2023-05-17] MEDS: Benzonatate 100 MG CAPSULE 200 MG PO ×2 (09:15→12:49)
--- NOTE | 2023-05-17 09:16 | P.PNIM_ITS ---
Subjective Subjective Date of Service: 05/17/23 Interval History: Pt seen and examined, admitted this morning with PNA, acute hypoxic respiratory failure, copd exacerbation. She tachypnic, respiratory rate in 28-34, seems anxious drowsy but easily aroused, earlier VBG was reasuring, ABG requested. Oxygen saturation around 95 Physical Exam 2 Vital Signs: Vital Signs: Last Vital Signs Temp 98.8 F 05/17/23 06:29 Pulse 93 05/17/23 07:33 Resp 34 H 05/17/23 07:33 BP 125/71 05/17/23 07:19 Pulse Ox 92 05/17/23 07:19 O2 Del Method High Flow Nasal C annula 05/17/23 07:19 FiO2 60 05/17/23 07:19 BMI result Body Mass Index 40.3 General: somnolent arouse easily Resp: Anjel rhonchi, increased wob CVS: S1,S2,RRR GI: +BS, NT, no distention Skin: No rash Neuro: motor grossly intact Psych: appropriate affect Objective Data Active Medications Acetaminophen (Acetaminophen 325 Mg Tablet) 650 mg PO Q6H PRN PRN Reason: Pain, Mild (Pain Scale 1-3) Albuterol/Ipratropium (Albuterol/Iprat 2.5/0.5mg 3 Ml Ampul.Neb) 3 ml INHALE RQ4H WHILE AWAKE [facility] Last Admin: 05/17/23 07:32 Dose: 3 ml Documented By: RAKESH Albuterol/Ipratropium (Albuterol/Iprat 2.5/0.5mg 3 Ml Ampul.Neb) 3 ml INHALE Q4H PRN PRN Reason: Wheezing Benzonatate (Benzonatate 100 Mg Capsule) 200 mg PO TID PRN PRN Reason: Cough Enoxaparin Sodium (Enoxaparin Sodium 40 Mg/0.4 Ml Syringe) 40 mg SUBCUT Q24H [facility] Last Admin: 05/17/23 06:23 Dose: 40 mg Documented By: DEB Ceftriaxone Sodium 1 gm/ (Sodium Chloride) 50 mls @ 100 mls/hr IV Q24H [facility] Azithromycin 500 mg/ Sodium (Chloride) 250 mls @ 125 mls/hr IV Q24H [facility] Last Admin: 05/17/23 06:23 Dose: 125 mls/hr Documented By: DEB Melatonin (Melatonin 3 Mg Tablet) 6 mg PO BEDTIME PRN PRN Reason: Insomnia Methylprednisolone Sodium Succinate (Methylprednisolone Sod Succ 40 Mg/Ml Vial) 40 mg IVPUSH Q12H [facility] Last Admin: 05/17/23 06:23 Dose: 40 mg Documented By: DEB Ondansetron HCl (Ondansetron Hcl 4 Mg/2 Ml Vial) 4 mg IVPUSH Q8H PRN PRN Reason: Nausea and Vomiting Sodium Chloride (0.9 % Sodium Chloride Flush 3 Ml Syringe) 3 ml IVFLUSH QSHIFT [facility] Last Admin: 05/17/23 07:52 Dose: Not Given Documented By: MAKAYLA Non-Admin Reason: IV Running Labs 05/17/23 08:00 05/17/23 08:00 Labs: Laboratory Results - last 24 hr 05/17/23 05/17/23 05/17/23 00:31 00:31 00:39 MCV 91.1 MCH 30.5 MCHC 33.4 RDW 13.6 Plt Count 120 L MPV 14.4 H Immature Gran % (Auto) 0.2 Neut % (Auto) 88.8 H Lymph % (Auto) 6.5 L Kings % (Auto) 3.8 Eos % (Auto) 0.5 Baso % (Auto) 0.2 Lymph # (Auto) 0.8 L [place] # (Auto) 0.5 Eos # (Auto) 0.1 Baso # (Auto) 0.0 Abs Immat Gran (auto) 0.03 Absolute Neuts (auto) 11.0 H Absolute Nucleated RBC 0.000 Nucleated RBC % (auto) 0.0 PT 13.8 H INR 1.1 VBG pH 7.42 VBG pCO2 31 VBG pO2 49 VBG HCO3 20 L VBG O2 Saturation 80.0 VBG Base Excess -2.5 Anion Gap 15 Estim Creat Clear Calc 120.4 Estimated GFR > 60 Random Glucose 117 H Lactic Acid 1.5 Calcium 9.4 Magnesium 1.7 Total Bilirubin 0.9 Direct Bilirubin 0.4 AST 17 ALT 10 Alkaline Phosphatase 76 Troponin I High Sens < 2.7 C-Reactive Protein 19.81 H B-Natriuretic Peptide 63 Total Protein 7.3 Albumin 3.7 Beta HCG, Quant < 2 Cancelled Urine Color Urine Appearance Urine pH Ur Specific [place] Urine Protein Urine Glucose (UA) Urine Ketones Urine Blood Urine Nitrite Ur Leukocyte Esterase Urine RBC Urine WBC Ur Squamous Epith Cells Urine Bacteria Hyaline Casts Ethyl Alcohol < 10 Influenza Type A (PCR) NEGATIVE Influenza Type B (PCR) NEGATIVE RSV RNA Qual (PCR) NEGATIVE SARS-CoV-2 RNA (RT-PCR) NEGATIVE 05/17/23 05/17/23 02:55 08:00 MCV 91.9 MCH 29.8 MCHC 32.4 RDW 13.6 Plt Count 107 L MPV Not Reportable Immature Gran % (Auto) Neut % (Auto) Lymph % (Auto) Kings % (Auto) Eos % (Auto) Baso % (Auto) Lymph # (Auto) Kings # (Auto) Eos # (Auto) Baso # (Auto) Abs Immat Gran (auto) Absolute Neuts (auto) Absolute Nucleated RBC 0.000 Nucleated RBC % (auto) 0.0 PT INR VBG pH VBG pCO2 VBG pO2 VBG HCO3 VBG O2 Saturation VBG Base Excess Anion Gap 14 Estim Creat Clear Calc 123.8 Estimated GFR > 60 Random Glucose 148 H Lactic Acid Calcium 8.8 D Magnesium Total Bilirubin Direct Bilirubin AST ALT Alkaline Phosphatase Troponin I High Sens C-Reactive Protein B-Natriuretic Peptide Total Protein Albumin Beta HCG, Quant Urine Color Yellow Urine Appearance Clear Urine pH 6.0 Ur Specific [place] 1.025 Urine Protein Negative Urine Glucose (UA) Negative Urine Ketones Trace Urine Blood Negative Urine Nitrite Positive H Ur Leukocyte Esterase Negative Urine RBC 0-2 Urine WBC 0-5 Ur Squamous Epith Cells 3-5 Urine Bacteria 2+ Hyaline Casts 0-2 Ethyl Alcohol Influenza Type A (PCR) Influenza Type B (PCR) RSV RNA Qual (PCR) SARS-CoV-2 RNA (RT-PCR) Assessment and Plan (1) Sepsis: Status: Acute (2) Pneumonia: Status: Acute (3) Hypoxia: Status: Acute Plan This is a 52 year old female with pertinent history of COPD not on home oxygen, mood disorder, hypothyroidism, gastroesophageal reflux disease who presents to the emergency department for evaluation of dyspnea, fever and cough, Flu/RSV/Sars negaitive Acute hypoxemic respiratory failure and sepsis due to pneumonia leading to acute exacerbation of COPD -Treat underlying PNA and COPD as below -Pulmonology consult Multifocal PNA as cause of resp failure, copd exacer -Continue IV Ceftriraxone and Azithro -follow cultures COPD exacerbation -bronchodilators by Neb -IV steroid -ABG now -Pulmonology consult Hypothyroidism - On Synthroid once confirmed Gastroesophageal reflux disease: -continue PPI Mood disorder: Continue home mood stabilizers once meds confirmed DVT prophylaxis: Lovenox Full Code need for inpatient: Acut hypoxic resp failure on [place], multifocal PNA on IV Abx, IV steroid for copd--this can not be done on outpatient basis Quality Stroke Does the patient have a stroke diagnosis?: No VTE Prior VTE?: No VTE Risk Level:: Medical - moderate - high VTE Device Contraindication: Treatment Not Indicated VTE Drug Contraindication: N/A - Med Ordered
--- NOTE | 2023-05-17 09:39 | PC.NURSE ---
Resp at bedside performing Abg
--- NOTE | 2023-05-17 10:36 | PM.CNPUL ---
History of Present Illness History of Present Illness Consult date: 05/17/23 Requesting physician: Dina Green Chief complaint: Dyspnea Narrative: 52-year-old lady, active smoker, with underlying history of COPD, hypothyroidism, and mood disorder admitted on 05/17/2023 with progressive dyspnea over the prior 2 days. On ER evaluation patient with significant hypoxia requiring high-flow nasal cannula. CT chest demonstrating multifocal bilateral ground-glass infiltrates. Patient also febrile and with leukocytosis. She was started on empiric antibiotics and admitted to telemetry osman. Pulmonary evaluation was requested. Patient is confused and is not able to provide significant history. Review of Systems Review of Systems: Yes Unobtainable due to mental status Neurologic: Reports confusion Psychiatric: Psychiatric: Reports confusion [facility] Past Medical History Medical History Hypothyroidism GERD (gastroesophageal reflux disease) Mood disorder COPD (chronic obstructive pulmonary disease) Social History Social History Alcohol intake: former Patient Tobacco Use Status: Current everyday Tobacco user Smoked in Last 30 Days: Yes Use of substances other than those prescribed or required for medical reasons: No Advance Directives: No Advance Directives Information Provided: Yes Nutrition Risks: No Nutritional Risk Patient : No Meds Allergies Allergy/AdvReac Type Severity Reaction Status Date / Time iodine [IODINE] Allergy Unknown UNKNOWN Verified 05/17/23 00:29 shellfish Allergy Unknown Anaphylaxis Uncoded 05/17/23 00:29 Active Medications: Current Medications Acetaminophen (Acetaminophen 325 Mg Tablet) 650 mg PO Q6H PRN PRN Reason: Pain, Mild (Pain Scale 1-3) Albuterol/Ipratropium (Albuterol/Iprat 2.5/0.5mg 3 Ml Ampul.Neb) 3 ml INHALE RQ4H WHILE AWAKE [facility] Last Admin: 05/17/23 07:32 Dose: 3 ml Albuterol/Ipratropium (Albuterol/Iprat 2.5/0.5mg 3 Ml Ampul.Neb) 3 ml INHALE Q4H PRN PRN Reason: Wheezing Benzonatate (Benzonatate 100 Mg Capsule) 200 mg PO TID PRN PRN Reason: Cough Last Admin: 05/17/23 09:15 Dose: 200 mg Enoxaparin Sodium (Enoxaparin Sodium 40 Mg/0.4 Ml Syringe) 40 mg SUBCUT Q24H [facility] Last Admin: 05/17/23 06:23 Dose: 40 mg Ceftriaxone Sodium 1 gm/ (Sodium Chloride) 50 mls @ 100 mls/hr IV Q24H [facility] Azithromycin 500 mg/ Sodium (Chloride) 250 mls @ 125 mls/hr IV Q24H [facility] Last Infusion: 05/17/23 09:38 Dose: Infused Melatonin (Melatonin 3 Mg Tablet) 6 mg PO BEDTIME PRN PRN Reason: Insomnia Methylprednisolone Sodium Succinate (Methylprednisolone Sod Succ 40 Mg/Ml Vial) 40 mg IVPUSH Q12H [facility] Last Admin: 05/17/23 06:23 Dose: 40 mg Ondansetron HCl (Ondansetron Hcl 4 Mg/2 Ml Vial) 4 mg IVPUSH Q8H PRN PRN Reason: Nausea and Vomiting Sodium Chloride (0.9 % Sodium Chloride Flush 3 Ml Syringe) 3 ml IVFLUSH QSHIFT [facility] Last Admin: 05/17/23 07:52 Dose: Not Given Home Medications Medication Instructions Recorded Confirmed Last Taken Type albuterol sulfate 90 mcg/actuation 2 puff inhalation Q4H PRN wheezing 05/17/23 Unknown History aerosol inhaler blood sugar diagnostic (FreeStyle 05/17/23 Unknown History Lite Strips) cholecalciferol (vitamin D3) 50 50 mcg PO DAILY 05/17/23 Unknown History mcg (2,000 unit) tablet (Vitamin D3) cyclobenzaprine 10 mg tablet 10 mg PO BID PRN muscle spasm 05/17/23 Unknown History duloxetine 60 mg capsule,delayed 60 mg PO DAILY 05/17/23 Unknown History release gabapentin 300 mg capsule 300 mg PO DAILY PRN pain 05/17/23 Unknown History gabapentin 800 mg tablet 800 mg PO DAILY 05/17/23 Unknown History ipratropium 0.5 mg-albuterol 3 mg 3 ml inhalation Q6H 05/17/23 Unknown History (2.5 mg base)/3 mL nebulization soln levothyroxine 137 mcg tablet 137 mcg PO DAILY 05/17/23 Unknown History nabumetone 750 mg tablet 750 mg PO BID 05/17/23 Unknown History omeprazole 20 mg capsule,delayed 20 mg PO DAILY 05/17/23 Unknown History release trazodone 50 mg tablet 50 mg PO BEDTIME 05/17/23 Unknown History umeclidinium 62.5 mcg/actuation 1 inh inhalation DAILY 05/17/23 Unknown History blister powder for inhalation (Incruse Ellipta) Physical Exam Vital Signs: Vital Signs: Last Vital Signs Temp 98.8 F 05/17/23 06:29 Pulse 93 05/17/23 07:33 Resp 34 H 05/17/23 07:33 BP 125/71 05/17/23 07:19 Pulse Ox 92 05/17/23 07:19 O2 Del Method High Flow Nasal C annula 05/17/23 07:19 FiO2 60 05/17/23 07:19 BMI result Body Mass Index 40.3 Const: General: no acute distress, awake and confusion Orientation/consciousness: confusion Eyes: Sclerae: sclerae normal EOM: EOMs intact bilaterally Neck: Neck: Yes no lymphadenopathy, Yes trachea midline and Yes supple Resp: Effort & Inspection: tachypneic Auscultation: crackles bilateral Cardio: Rate: regular rate Rhythm: regular rhythm Heart sounds: no gallops, no murmurs and no rubs GI: Palpation (GI): Soft to palpation and Other GI palpation findings present ( Nontender) Auscultation: normal bowel sounds Neuro: General: confusion Extrem: General: No clubbing, No cyanosis and Yes edema ( Trace bilateral) Results Laboratory Findings 05/17/23 08:00 05/17/23 08:00 ABG, PT/INR, D-dimer: PT/INR, D-dimer PT 13.8 SEC (11.1-13.3) H 05/17/23 00:31 INR 1.1 (0.9-1.1) 05/17/23 00:31 Abnormal lab findings: Abnormal Labs 05/17/23 05/17/23 05/17/23 00:31 00:39 02:55 WBC 12.4 H Plt Count 120 L MPV 14.4 H Neut % (Auto) 88.8 H Lymph % (Auto) 6.5 L Lymph # (Auto) 0.8 L Absolute Neuts (auto) 11.0 H PT 13.8 H VBG HCO3 20 L Chloride 110 H Carbon Dioxide 19 L Random Glucose 117 H C-Reactive Protein 19.81 H Urine Nitrite Positive H 05/17/23 08:00 WBC 13.3 H Plt Count 107 L MPV Neut % (Auto) Lymph % (Auto) Lymph # (Auto) Absolute Neuts (auto) PT VBG HCO3 Chloride 113 H Carbon Dioxide 18 L Random Glucose 148 H C-Reactive Protein Urine Nitrite Assessment and Plan (1) Acute respiratory failure with hypoxia: Status: Acute (2) COPD (chronic obstructive pulmonary disease): Status: Acute (3) Pneumonia: Status: Acute Plan Impression: 52-year-old lady with underlying COPD admitted with acute hypoxic respiratory failure with bilateral pneumonia now on high-flow nasal cannula. Recommendations: Agree with broad-spectrum antibiotics. Consider ruling out pulmonary embolism with D-dimer, check V/Q if D-dimer is positive. Consider obtaining 2D echocardiogram. Procedures Date of Service Date of Service: 05/17/23
[2023-05-17 11:13] LABS: D Dimer High Sensitivity 795 NG/ML
--- NOTE | 2023-05-17 11:29 | PHA.MEDREC ---
Pharmacy Consult ? Medication Reconciliation Pharmacy has completed the medication reconciliation, pt unable to confirm, called who confirmed from medication bottles.
[2023-05-17 11:56] LABS: Glucose, Whole Blood 149 mg/dL (60-115)
--- NOTE | 2023-05-17 12:21 | MHC.CM.PN ---
Attempted to meet with patient in regards to d/c planning. Patient currently sleeping and on high flow. No family at bedside. Will attempt to meet with patient again. Continue to monitor for d/c needs.
--- NOTE | 2023-05-17 15:47 | PM.EVENT ---
Event Note Date of Service: 05/17/23 Event Note: Pt reassed again, she is more comfortable, talking in full sentences, knows she at the ED at [place], DDimer was high but VQ scan negative for PE, awaiting US of legs, will continue to closely monitor Time Spent With Patient Time: Total time managing care of this patient today ____ minutes.
[2023-05-17] MEDS: 0.9 % Sodium Chloride Flush 3 ML SYRINGE IVFLUSH (16:40)
[2023-05-17] MEDS: ondansetron HCL 4 MG/2 ML VIAL IVPUSH (16:44)
--- NOTE | 2023-05-17 16:52 | PM.EVENT ---
Event Note Date of Service: 05/21/23 Event Note: Patient has become increasingly tachypneic , with recorded O2 drops as low as 70s, and is complaining of pain in the ribs, moaning, and splinting. A stat CXR is requested to rule out rib fracture. She and her report that she has not taken her medications since Sunday, including gabapentin, duloxetine, and levothyroxine. She doesn't want to take gabapentin anyway, as the pill is too large. Additionally, myself and the nurse have great concern about her swallowing abilities and recommend avoiding it until her mental status improves and she demonstrates a safe ability to swallow. On the advice of the cartographic aide, the patient was given a dose of Lasix 40 mg IV, resulting in some output but no improvement in respiratory status. She continues to have increased work of breathing. In light of her continuing decline, the cartographic aide and I agree she should be transferred to the ICU for closer monitoring. If necessary, BiPAP/CPAP or mechanical ventilation may be used. I have discussed this with her at the bedside Time Spent With Patient Time: Total time managing care of this patient today ____ minutes.
[2023-05-17] MEDS: Furosemide 40 MG/4 ML VIAL IVPUSH (17:01)
--- NOTE | 2023-05-17 17:20 | PC.NURSE ---
Provider called to bedside approx around 1600 along with resp d/t pt being 74% on highflow 75% FIo2, pt was then turned up to 100% FiO2, pt continueing to sat 86-90% on 100% highflow. Pt given IV morphine/Lasix, Catheter placed at this time to monitor I&O, 225cc out right away. Pt remains to have rapid shallow breathing. Pt not safe to swallow PO medications at this time, per provider at bedside pt to remain NPO. Pt complaints of L sided chest pain, this RN recommending Xray to assess ribs d/t aggressive coughing throughout toda, Xray obtained, awaiting radiology reading at this time.
[2023-05-17 17:32] LABS: Glucose, Whole Blood 127 mg/dL (60-115)
[2023-05-17 18:05] LABS: Anion Gap 12 (12-20); Blood Urea Nitrogen 16 mg/dL (9-16); Calcium 9.3 mg/dL (8.4-10.2); Carbon Dioxide 21 mmol/L (22-29); Chloride 112 mmol/L (96-108); Creatinine Clr Calc Pharmacy 115.7; Estimated Glomerular Filt Rate > 60; Glucose Random 130 mg/dL (60-115); Sodium 141 mmol/L (135-145)
--- NOTE | 2023-05-17 18:21 | PC.NURSE ---
Pt remains to be sating 86-89% in 100% FiO2, Resp called, MD called to bedside, pt to be sent to ICU, being placed on CPAP at this time. Urine output since folwy placed post lasix totalling 1300cc. Pt remains grunting breathing.
--- NOTE | 2023-05-17 18:27 | MHC.CM.ED ---
CM did not meet with patient. Pt with resp distress. Pt will be admitted to ICU. Resp therapy and provider at bedside.
[2023-05-17 18:36] LABS: ABG Base Excess -2.1 mmol/L; ABG HCO3 23 mmol/L (22-26); ABG pCO2 41 mmHg (32-45); ABG pH 7.35 (7.35-7.45); ABG pO2 88 mmHg (83-108)
[2023-05-17 18:38] LABS: ABG Base Excess -5.9 mmol/L; ABG HCO3 17 mmol/L (22-26); ABG pCO2 29 mmHg (32-45); ABG pH 7.38 (7.35-7.45); ABG pO2 90 mmHg (83-108)
[2023-05-17 18:57] LABS: ABG Refer to POC result
[2023-05-17 18:57] LABS: ABG Refer to POC result
--- NOTE | 2023-05-17 19:36 | MHC.EDTECH ---
tech took over care at 1900. tech emptied cath bag with 1250 ml voided.
--- NOTE | 2023-05-17 19:53 | P.PNCC_ITS ---
Subjective Subjective Date of Service: 05/17/23 Interval History: ?The patient is a 52-year-old female with a past medical history of active smoker, with underlying history of COPD, hypothyroidism, and mood disorder admitted on 05/17/2023 with progressive dyspnea over the prior 2 days.? In the? emergency department patient with significant hypoxia requiring high-flow nasal cannula.? CT chest demonstrating multifocal bilateral ground-glass infiltrates.? Patient also febrile and with leukocytosis.? She was started on? ceftriaxone and azithromycin? and admitted to medical telemetry. ? Patient?s D-dimer was high? but due to underlying history of iodine allergy, ? PE was ruled out with pulmonary perfusion scan. Since admission to? medical? floor,? patient progressively requiring more oxygenation, maxed out on high-flow,? Now requiring? rescue CPAP.? ? Patient will be admitted to the ICU for acute hypoxic respiratory failure requiring rescue CPAP Critical Care Time (minutes): 60 Physical Exam 2 Vital Signs: Vital Signs: Last Vital Signs Temp 98.8 F 05/17/23 06:29 Pulse 80 05/17/23 18:26 Resp 47 H 05/17/23 19:47 BP 143/70 H 05/17/23 18:22 Pulse Ox 98 05/17/23 18:26 O2 Del Method CPAP 05/17/23 18:26 FiO2 100 05/17/23 18:26 BMI result Body Mass Index 40.3 ?General:? Alert oriented x3 on CPAP with mild resp distress.? Speech is well articulated, thought process is coherent.? Following all commands. ?HEENT:? Head is normocephalic, atraumatic, pupils equal round reactive to light accommodation bilaterally.? Extraocular movements appear intact.? Buccal mucosa is dry, Neck is supple ?Cardiac:? Clear S1-S2, no murmurs rubs or gallops. ?Pulmonary:? Clear to auscultation, no wheezes, rales or rhonchi. ?Abdomen:? ?Abdomen soft, non-tender, non-distended. Normal bowel sounds. No pulsatile mass. No hepatosplenomegaly. ?Musculoskeletal: Moving all 4 extremities upon request a major joints, there is no crepitus or tenderness.? The strength is 5/5 bilaterally and throughout all 4 extremities.? Gait not assessed at this point. ?Neurologic:? cranial nerves 2-12 are grossly intact.? No focal deficits noted.Motor strength as above.?? ?Skin:? Intact, no lesions, edema, erythema, clubbing or cyanosis.? No ulcers. Vascular:? 2+ pulses upper and lower extremities distally.? Objective Data Labs 05/18/23 04:38 05/18/23 04:38 Labs: Laboratory Results - last 24 hr 05/17/23 05/17/23 05/17/23 00:31 00:31 00:39 WBC 12.4 H RBC 4.40 Hgb 13.4 Hct 40.1 MCV 91.1 MCH 30.5 MCHC 33.4 RDW 13.6 Plt Count 120 L MPV 14.4 H Immature Gran % (Auto) 0.2 Neut % (Auto) 88.8 H Lymph % (Auto) 6.5 L [place] % (Auto) 3.8 Eos % (Auto) 0.5 Baso % (Auto) 0.2 Lymph # (Auto) 0.8 L [place] # (Auto) 0.5 Eos # (Auto) 0.1 Baso # (Auto) 0.0 Abs Immat Gran (auto) 0.03 Absolute Neuts (auto) 11.0 H Absolute Nucleated RBC 0.000 Nucleated RBC % (auto) 0.0 PT 13.8 H INR 1.1 D-Dimer High Sensitivty O2 Saturation ABG pH at Pt Temp ABG pCO2 at Pt Temp ABG pO2 at Pt Temp ABG HCO3 ABG Base Excess (Actual) VBG pH 7.42 VBG pCO2 31 VBG pO2 49 VBG HCO3 20 L VBG O2 Saturation 80.0 VBG Base Excess -2.5 Sodium 140 Potassium 3.8 Chloride 110 H Carbon Dioxide 19 L Anion Gap 15 BUN 11 Creatinine 0.73 Estim Creat Clear Calc 120.4 Estimated GFR > 60 POC Glucose Random Glucose 117 H Lactic Acid 1.5 Calcium 9.4 Magnesium 1.7 Total Bilirubin 0.9 Direct Bilirubin 0.4 AST 17 ALT 10 Alkaline Phosphatase 76 Troponin I High Sens < 2.7 C-Reactive Protein 19.81 H B-Natriuretic Peptide 63 Total Protein 7.3 Albumin 3.7 Beta HCG, Quant < 2 Cancelled Urine Color Urine Appearance Urine pH Ur Specific [place] Urine Protein Urine Glucose (UA) Urine Ketones Urine Blood Urine Nitrite Ur Leukocyte Esterase Urine RBC Urine WBC Ur Squamous Epith Cells Urine Bacteria Hyaline Casts Ethyl Alcohol < 10 Influenza Type A (PCR) NEGATIVE Influenza Type B (PCR) NEGATIVE RSV RNA Qual (PCR) NEGATIVE SARS-CoV-2 RNA (RT-PCR) NEGATIVE 05/17/23 05/17/23 05/17/23 02:55 07:43 08:00 WBC 13.3 H RBC 4.20 Hgb 12.5 Hct 38.6 MCV 91.9 MCH 29.8 MCHC 32.4 RDW 13.6 Plt Count 107 L MPV Not Reportable Immature Gran % (Auto) Neut % (Auto) Lymph % (Auto) [place] % (Auto) Eos % (Auto) Baso % (Auto) Lymph # (Auto) [place] # (Auto) Eos # (Auto) Baso # (Auto) Abs Immat Gran (auto) Absolute Neuts (auto) Absolute Nucleated RBC 0.000 Nucleated RBC % (auto) 0.0 PT INR D-Dimer High Sensitivty O2 Saturation ABG pH at Pt Temp ABG pCO2 at Pt Temp ABG pO2 at Pt Temp ABG HCO3 ABG Base Excess (Actual) VBG pH VBG pCO2 VBG pO2 VBG HCO3 VBG O2 Saturation VBG Base Excess Sodium 141 Potassium 3.6 Chloride 113 H Carbon Dioxide 18 L Anion Gap 14 BUN 12 Creatinine 0.71 Estim Creat Clear Calc 123.8 Estimated GFR > 60 POC Glucose 149 H Random Glucose 148 H Lactic Acid Calcium 8.8 D Magnesium Total Bilirubin Direct Bilirubin AST ALT Alkaline Phosphatase Troponin I High Sens C-Reactive Protein B-Natriuretic Peptide Total Protein Albumin Beta HCG, Quant Urine Color Yellow Urine Appearance Clear Urine pH 6.0 Ur Specific [place] 1.025 Urine Protein Negative Urine Glucose (UA) Negative Urine Ketones Trace Urine Blood Negative Urine Nitrite Positive H Ur Leukocyte Esterase Negative Urine RBC 0-2 Urine WBC 0-5 Ur Squamous Epith Cells 3-5 Urine Bacteria 2+ Hyaline Casts 0-2 Ethyl Alcohol Influenza Type A (PCR) Influenza Type B (PCR) RSV RNA Qual (PCR) SARS-CoV-2 RNA (RT-PCR) 05/17/23 05/17/23 05/17/23 09:53 10:55 17:27 WBC RBC Hgb Hct MCV MCH MCHC RDW Plt Count MPV Immature Gran % (Auto) Neut % (Auto) Lymph % (Auto) [place] % (Auto) Eos % (Auto) Baso % (Auto) Lymph # (Auto) [place] # (Auto) Eos # (Auto) Baso # (Auto) Abs Immat Gran (auto) Absolute Neuts (auto) Absolute Nucleated RBC Nucleated RBC % (auto) PT INR D-Dimer High Sensitivty 795 O2 Saturation 97.0 ABG pH at Pt Temp 7.38 ABG pCO2 at Pt Temp 29 L ABG pO2 at Pt Temp 90 ABG HCO3 17 L ABG Base Excess (Actual) -5.9 VBG pH VBG pCO2 VBG pO2 VBG HCO3 VBG O2 Saturation VBG Base Excess Sodium Potassium Chloride Carbon Dioxide Anion Gap BUN Creatinine Estim Creat Clear Calc Estimated GFR POC Glucose 127 H Random Glucose Lactic Acid Calcium Magnesium Total Bilirubin Direct Bilirubin AST ALT Alkaline Phosphatase Troponin I High Sens C-Reactive Protein B-Natriuretic Peptide Total Protein Albumin Beta HCG, Quant Urine Color Urine Appearance Urine pH Ur Specific [place] Urine Protein Urine Glucose (UA) Urine Ketones Urine Blood Urine Nitrite Ur Leukocyte Esterase Urine RBC Urine WBC Ur Squamous Epith Cells Urine Bacteria Hyaline Casts Ethyl Alcohol Influenza Type A (PCR) Influenza Type B (PCR) RSV RNA Qual (PCR) SARS-CoV-2 RNA (RT-PCR) 05/17/23 05/17/23 17:36 18:28 WBC RBC Hgb Hct MCV MCH MCHC RDW Plt Count MPV Immature Gran % (Auto) Neut % (Auto) Lymph % (Auto) [place] % (Auto) Eos % (Auto) Baso % (Auto) Lymph # (Auto) [place] # (Auto) Eos # (Auto) Baso # (Auto) Abs Immat Gran (auto) Absolute Neuts (auto) Absolute Nucleated RBC Nucleated RBC % (auto) PT INR D-Dimer High Sensitivty O2 Saturation 96.0 ABG pH at Pt Temp 7.35 ABG pCO2 at Pt Temp 41 ABG pO2 at Pt Temp 88 ABG HCO3 23 ABG Base Excess (Actual) -2.1 VBG pH VBG pCO2 VBG pO2 VBG HCO3 VBG O2 Saturation VBG Base Excess Sodium 141 Potassium 4.0 Chloride 112 H Carbon Dioxide 21 L Anion Gap 12 BUN 16 Creatinine 0.76 Estim Creat Clear Calc 115.7 Estimated GFR > 60 POC Glucose Random Glucose 130 H Lactic Acid Calcium 9.3 Magnesium Total Bilirubin Direct Bilirubin AST ALT Alkaline Phosphatase Troponin I High Sens C-Reactive Protein B-Natriuretic Peptide Total Protein Albumin Beta HCG, Quant Urine Color Urine Appearance Urine pH Ur Specific [place] Urine Protein Urine Glucose (UA) Urine Ketones Urine Blood Urine Nitrite Ur Leukocyte Esterase Urine RBC Urine WBC Ur Squamous Epith Cells Urine Bacteria Hyaline Casts Ethyl Alcohol Influenza Type A (PCR) Influenza Type B (PCR) RSV RNA Qual (PCR) SARS-CoV-2 RNA (RT-PCR) Progress Note: A&P Assessment and plan (1) Acute respiratory failure with hypoxia: Status: Acute (2) Sepsis: Status: Acute (3) Pulmonary edema: Status: Acute (4) Bilateral pneumonia: Status: Acute Plan 52-year-old female with underlying COPD admitted with acute hypoxic respiratory failure with bilateral pneumonia and? pulmonary edema now on rescue CPAP ?Neuro:? No acute issues? Cardiac:? Sepsis- ? no evidence of severe septic shock,? patient with vital signs stable.? Was started on ceftriaxone and azithromycin.? Will broaden antibiotic coverage with Zosyn.? ?Pulmonary edema:? chest x-ray showing some pulmonary congestion,? was given Lasix prior to arrival to the ICU.? will continue to monitor need for further diuresing.? Pulmonary:?? Acute hypoxic? respiratory failure- ? patient has underlying bilateral pneumonia? and COPD exacerbation,? now requiring more oxygenation on rescue BiPAP.? Chest x-ray also showing pulmonary edema.? Received Lasix prior to arrival to the? ICU.? Continue to monitor diuresing.? Continue antibiotics.? Wean off CPAP as tolerated Renal:? ?No acute issues GI: ??No acute issues Endo:? No acute issues ID:? ? bilateral pneumonia:? initially treated with ceftriaxone and azithromycin.? We will switch? Zosyn.? Blood cultures pending Heme/Onc:?? ?No acute issues Psych:? No acute issues. Miscellaneous: No acute issues Prophylaxis: ? Lovenox. ? IV push Protonix unable to take PO home omeprazole? Diet: ? NPO while on cpap? Code status:? full code Critical care? time: x? 60 minutes of critical care Quality Stroke Does the patient have a stroke diagnosis?: No VTE Prior VTE?: No VTE Risk Level:: Medical - moderate - high VTE Device Contraindication: Treatment Not Indicated VTE Drug Contraindication: N/A - Med Ordered
[2023-05-17] MEDS: fentaNYL citrate/PF 100 MCG/2 ML VIAL 50 MCG IVPUSH (19:56)
[2023-05-17] MEDS: Piperacillin Sodium/Tazobactam 4.5 GM in 0.9 % Sodium Chloride 100 ML IV (20:23)
[2023-05-17 20:25] LABS: VBG Base Excess -2.7 mmol/L; VBG HCO3 21 mmol/L (22-26); VBG pCO2 33 mmHg; VBG pO2 101 mmHg
[2023-05-17 20:38] LABS: Venous Blood Gas Refer to POC result
[2023-05-17 20:50] LABS: Lactic Acid 1.1 mmol/L (0.5-2.0)
[2023-05-17 21:02] LABS: Basophils Percent Auto 0.1 % (0-2); Hematocrit 38.1 % (37.0-47.0); Hemoglobin 12.7 g/dl (12.0-16.0); Imm Gran Abs Auto 0.06 X10*3/uL (0.00-0.03); Imm Gran Pct Auto 0.4 % (0.0-0.4); Lymphocytes Absolute Auto 0.5 X10*3/uL (1.2-4.9); Lymphocytes Percent Auto 3.4 % (20-40); MANUAL DIFF FLAG SCAN; Mean Corpuscular HGB Conc 33.3 g/dl (31.0-35.0); Mean Corpuscular Hemoglobin 30.2 pg (27.0-33.0); Mean Corpuscular Volume 90.7 fL (80.0-98.0); Mean Platelet Volume 14.9 fL (9.4-12.3); Monocytes Absolute Auto 0.4 X10*3/uL (0.1-1.2); Monocytes Percent Auto 2.5 % (2-11); Neutrophils Absolute Auto 14.7 x10*3/uL (2.0-8.3); Neutrophils Percent Auto 93.6 % (45-73); PLT CLUMP 1; Red Cell Distribution Width 13.5 % (11.0-16.0); SCAN SMEAR FLAG 1
[2023-05-17 21:29] LABS: White Blood Count 15.7 X10*3/uL (4.8-10.8)
[2023-05-17 21:41] LABS: Platelet Count 116 X10*3/uL (160-400); SLIDE REVIEW VERIFIED
[2023-05-18] VITALS (38 sets, daily range): BP systolic 107–140; BP diastolic 54–86; PULSE 63–94; RESP 12–81; TEMP 36.3–37.3; O2SAT 82–911; BMI 39.7
[2023-05-18] MEDS: Piperacillin Sodium/Tazobactam 4.5 GM in 0.9 % Sodium Chloride 100 ML IV ×4 (01:16→19:29)
[2023-05-18] MEDS: Furosemide 40 MG/4 ML VIAL IVPUSH ×3 (01:17→17:49)
[2023-05-18] MEDS: fentaNYL citrate/PF 100 MCG/2 ML VIAL 50 MCG IVPUSH ×7 (01:21→22:30)
[2023-05-18] MEDS: Albuterol/Iprat 2.5/0.5MG 3 ML AMPUL.NEB INHALE ×4 (01:22→19:06)
[2023-05-18 02:51] LABS: Amphetamine Screen Urine Not Detected (Not Detect); Barbiturates, Urine Not Detected (Not Detect); Benzodiazepines Screen Urine Not Detected (Not Detect); Cannabinoid Screen Urine Not Detected (Not Detect); Cocaine Screen Urine Not Detected (Not Detect); Fentanyl, urine POSITIVE (Not Detect); Opiate Screen Urine POSITIVE (Not Detect); Phencyclidine Screen Urine Not Detected (Not Detect)
[2023-05-18 04:44] LABS: VBG Base Excess 3.1 mmol/L; VBG HCO3 27 mmol/L (22-26); VBG pCO2 41 mmHg; VBG pH 7.43 (7.32-7.43); VBG pO2 84 mmHg
[2023-05-18 04:47] LABS: Venous Blood Gas Refer to POC result
[2023-05-18 04:56] LABS: Basophils Percent Auto 0.1 % (0-2); Hematocrit 38.8 % (37.0-47.0); Hemoglobin 12.9 g/dl (12.0-16.0); Imm Gran Abs Auto 0.07 X10*3/uL (0.00-0.03); Imm Gran Pct Auto 0.4 % (0.0-0.4); Lymphocytes Absolute Auto 0.6 X10*3/uL (1.2-4.9); Lymphocytes Percent Auto 3.5 % (20-40); MANUAL DIFF FLAG SCAN; Mean Corpuscular HGB Conc 33.2 g/dl (31.0-35.0); Mean Corpuscular Hemoglobin 30.3 pg (27.0-33.0); Mean Corpuscular Volume 91.1 fL (80.0-98.0); Mean Platelet Volume 13.9 fL (9.4-12.3); Monocytes Absolute Auto 0.5 X10*3/uL (0.1-1.2); Monocytes Percent Auto 2.9 % (2-11); Neutrophils Absolute Auto 15.2 x10*3/uL (2.0-8.3); Neutrophils Percent Auto 93.1 % (45-73); PLT CLUMP 1; Red Blood Count 4.26 X10*6/uL (4.20-5.50); Red Cell Distribution Width 13.6 % (11.0-16.0); SCAN SMEAR FLAG 1
[2023-05-18] MEDS: methylPREDNISolone Sod Succ 40 MG/ML VIAL IVPUSH (05:10)
[2023-05-18 05:12] LABS: White Blood Count 16.4 X10*3/uL (4.8-10.8)
[2023-05-18] MEDS: Pantoprazole Sodium 40 MG/10 ML VIAL IVPUSH (05:14)
[2023-05-18] MEDS: Enoxaparin Sodium 40 MG/0.4 ML SYRINGE SUBCUT (05:16)
[2023-05-18 05:20] LABS: Albumin Level 3.6 g/dL (3.5-5.0); Anion Gap 13 (12-20); Blood Urea Nitrogen 17 mg/dL (9-16); Calcium 9.8 mg/dL (8.4-10.2); Carbon Dioxide 25 mmol/L (22-29); Chloride 107 mmol/L (96-108); Creatinine Clr Calc Pharmacy 110.3; Estimated Glomerular Filt Rate > 60; Glucose Random 138 mg/dL (60-115); Magnesium 2.1 mg/dL (1.6-2.6); Phosphorus 3.2 mg/dL (2.7-4.5); Sodium 141 mmol/L (135-145)
[2023-05-18 05:28] LABS: SLIDE REVIEW VERIFIED
[2023-05-18] MEDS: LORazepam 2 MG/ML VIAL 0.5 MG IVPUSH (06:32)
--- NOTE | 2023-05-18 06:42 | PC.NURSE ---
ADMIT TO [id number] FROM ER DEPT APPROX 19:40..AWAKE..ORIENTED X3..ANXIOUS...NAYLOR AND REPOSITIONS SELF IN BED....CPAP 15CM IN PLACE FOR WORK OF BREATHING..TACHYPNEIC...RR 40'S-50'S...DYSPNEIC...HARSH COUGHING SPELLS ...MOANING..STATED #10/10 CHEST PAIN WITH COUGH AND INSPIRATION...ICU SPEECH LANGUAGE PATHOLOGIST TRAVEL AT BEDSIDE...FENTANYL 50 MCG IV GIVEN FOR PAIN AND WORK OF BREATHING WITH GRADUAL RESTFUL EFFECT..NAPPED..RR 26-30...Ve 15-16 l/m...fio2 weaned by rt overnight to 40%..per hardwood floor layer sao2 goal >88%...NPO WHILE ON CPAP PER SPEECH LANGUAGE PATHOLOGIST TRAVEL....REPEATED EPISODES OF HARSH COUGHING SPELLS OVERNIGHT...ZOSYN/UPDRAFTS/SOLUMEDROL PER APR...2 MORE DOSES OF FENTANYL GIVEN OVERNIGHT PER APR...ANXIOUS THIS AM DESPITE FENTANYL...ATIVAN 0.5MG IV X1 GIVEN WITH RESTFUL EFFECT...REPEAT LASIX 40MG IV GIVEN APPROX 01:15...DIURESED >1500ML POST-LASIX VIA RAMIRES CATHETER..CURRENTLY DOZING..RR 28-32..SAO2 93%
--- NOTE | 2023-05-18 11:32 | P.PNCC_ITS ---
Subjective Subjective Date of Service: 05/18/23 Interval History: 52-year-old lady, active smoker, with underlying history of COPD, hypothyroidism, and mood disorder admitted on 05/17/2023 with progressive dyspnea over the prior 2 days. On ER evaluation patient with significant hypoxia requiring high-flow nasal cannula. CT chest demonstrating multifocal bilateral ground-glass infiltrates. Patient also febrile and with leukocytosis. She was started on empiric antibiotics and admitted to telemetry osman. However, her oxygen requirements progressed significantly and she was maxed out high-flow nasal cannula CPAP support admission to intensive care unit. Overnight with significant improvement in oxygenation with diuresis, titrated down to OxyMask. Critical Care Time (minutes): 0 Physical Exam 2 Vital Signs: Vital Signs: Last Vital Signs Temp 98.6 F 05/18/23 11:00 Pulse 79 05/18/23 11:00 Resp 25 H 05/18/23 11:00 BP 125/71 05/18/23 11:00 Pulse Ox 91 L 05/18/23 11:00 O2 Del Method Oxymask 05/18/23 11:00 O2 Flow Rate 7 05/18/23 11:00 FiO2 40 05/18/23 08:00 BMI result Body Mass Index 39.7 Const: General: no acute distress, alert, awake and confusion O rientation/consciousness: confusion Eyes: Sclerae: sclerae normal EOM: EOMs intact bilaterally Neck: Neck: Yes no lymphadenopathy, Yes trachea midline and Yes supple Resp: Effort & Inspection: tachypneic Auscultation: crackles (Bilateral) Cardio: Rate: regular rate Rhythm: regular rhythm Heart sounds: no gallops, no murmurs and no rubs GI: Palpation (GI): Soft to palpation and Other GI palpation findings present ( Nontender) Auscultation: normal bowel sounds Neuro: General: confusion Extrem: General: No clubbing, No cyanosis and Yes edema (Trace bilateral) Objective Data Labs 05/18/23 04:38 05/18/23 04:38 Labs: Laboratory Results - last 24 hr 05/17/23 05/17/23 05/17/23 07:43 09:53 17:27 WBC RBC Hgb Hct MCV MCH MCHC RDW Plt Count MPV Immature Gran % (Auto) Neut % (Auto) Lymph % (Auto) [place] % (Auto) Eos % (Auto) Baso % (Auto) Lymph # (Auto) [place] # (Auto) Eos # (Auto) Baso # (Auto) Abs Immat Gran (auto) Absolute Neuts (auto) Absolute Nucleated RBC Nucleated RBC % (auto) Smear Tech's Comments O2 Saturation 97.0 ABG pH at Pt Temp 7.38 ABG pCO2 at Pt Temp 29 L ABG pO2 at Pt Temp 90 ABG HCO3 17 L ABG Base Excess (Actual) -5.9 VBG pH VBG pCO2 VBG pO2 VBG HCO3 VBG O2 Saturation VBG Base Excess Sodium Potassium Chloride Carbon Dioxide Anion Gap BUN Creatinine Estim Creat Clear Calc Estimated GFR POC Glucose 149 H 127 H Random Glucose Lactic Acid Calcium Phosphorus Magnesium Albumin Urine Opiates Screen Urine Fentanyl Screen Ur Barbiturates Screen Ur Phencyclidine Scrn Ur Amphetamines Screen U Benzodiazepines Scrn Urine Cocaine Screen U Marijuana (THC) Screen 05/17/23 05/17/23 05/17/23 17:36 18:28 20:19 WBC RBC Hgb Hct MCV MCH MCHC RDW Plt Count MPV Immature Gran % (Auto) Neut % (Auto) Lymph % (Auto) [place] % (Auto) Eos % (Auto) Baso % (Auto) Lymph # (Auto) [place] # (Auto) Eos # (Auto) Baso # (Auto) Abs Immat Gran (auto) Absolute Neuts (auto) Absolute Nucleated RBC Nucleated RBC % (auto) Smear Tech's Comments O2 Saturation 96.0 ABG pH at Pt Temp 7.35 ABG pCO2 at Pt Temp 41 ABG pO2 at Pt Temp 88 ABG HCO3 23 ABG Base Excess (Actual) -2.1 VBG pH 7.40 VBG pCO2 33 VBG pO2 101 VBG HCO3 21 L VBG O2 Saturation 98.0 VBG Base Excess -2.7 Sodium 141 Potassium 4.0 Chloride 112 H Carbon Dioxide 21 L Anion Gap 12 BUN 16 Creatinine 0.76 Estim Creat Clear Calc 115.7 Estimated GFR > 60 POC Glucose Random Glucose 130 H Lactic Acid Calcium 9.3 Phosphorus Magnesium Albumin Urine Opiates Screen Urine Fentanyl Screen Ur Barbiturates Screen Ur Phencyclidine Scrn Ur Amphetamines Screen U Benzodiazepines Scrn Urine Cocaine Screen U Marijuana (THC) Screen 05/17/23 05/18/23 05/18/23 20:20 02:30 04:36 WBC 15.7 H RBC 4.20 Hgb 12.7 Hct 38.1 MCV 90.7 MCH 30.2 MCHC 33.3 RDW 13.5 Plt Count 116 L MPV 14.9 H Immature Gran % (Auto) 0.4 Neut % (Auto) 93.6 H Lymph % (Auto) 3.4 L [place] % (Auto) 2.5 Eos % (Auto) 0.0 Baso % (Auto) 0.1 Lymph # (Auto) 0.5 L [place] # (Auto) 0.4 Eos # (Auto) 0.0 Baso # (Auto) 0.0 Abs Immat Gran (auto) 0.06 H Absolute Neuts (auto) 14.7 H Absolute Nucleated RBC 0.000 Nucleated RBC % (auto) 0.0 Smear Tech's Comments VERIFIED O2 Saturation ABG pH at Pt Temp ABG pCO2 at Pt Temp ABG pO2 at Pt Temp ABG HCO3 ABG Base Excess (Actual) VBG pH 7.43 VBG pCO2 41 VBG pO2 84 VBG HCO3 27 H VBG O2 Saturation 96.0 VBG Base Excess 3.1 Sodium Potassium Chloride Carbon Dioxide Anion Gap BUN Creatinine Estim Creat Clear Calc Estimated GFR POC Glucose Random Glucose Lactic Acid 1.1 Calcium Phosphorus Magnesium Albumin Urine Opiates Screen POSITIVE H Urine Fentanyl Screen POSITIVE H Ur Barbiturates Screen Not Detected Ur Phencyclidine Scrn Not Detected Ur Amphetamines Screen Not Detected U Benzodiazepines Scrn Not Detected Urine Cocaine Screen Not Detected U Marijuana (THC) Screen Not Detected 05/18/23 04:38 WBC 16.4 H RBC 4.26 Hgb 12.9 Hct 38.8 MCV 91.1 MCH 30.3 MCHC 33.2 RDW 13.6 Plt Count TNP MPV 13.9 H Immature Gran % (Auto) 0.4 Neut % (Auto) 93.1 H Lymph % (Auto) 3.5 L [place] % (Auto) 2.9 Eos % (Auto) 0.0 Baso % (Auto) 0.1 Lymph # (Auto) 0.6 L [place] # (Auto) 0.5 Eos # (Auto) 0.0 Baso # (Auto) 0.0 Abs Immat Gran (auto) 0.07 H Absolute Neuts (auto) 15.2 H Absolute Nucleated RBC 0.000 Nucleated RBC % (auto) 0.0 Smear Tech's Comments VERIFIED O2 Saturation ABG pH at Pt Temp ABG pCO2 at Pt Temp ABG pO2 at Pt Temp ABG HCO3 ABG Base Excess (Actual) VBG pH VBG pCO2 VBG pO2 VBG HCO3 VBG O2 Saturation VBG Base Excess Sodium 141 Potassium 4.0 Chloride 107 Carbon Dioxide 25 Anion Gap 13 BUN 17 H Creatinine 0.79 Estim Creat Clear Calc 110.3 Estimated GFR > 60 POC Glucose Random Glucose 138 H Lactic Acid Calcium 9.8 Phosphorus 3.2 Magnesium 2.1 Albumin 3.6 Urine Opiates Screen Urine Fentanyl Screen Ur Barbiturates Screen Ur Phencyclidine Scrn Ur Amphetamines Screen U Benzodiazepines Scrn Urine Cocaine Screen U Marijuana (THC) Screen Microbiology Microbiology Results: Microbiology 05/17/23 00:31 Blood - Venous Blood Culture - Preliminary No growth after 24 hours. 05/17/23 00:31 Blood - Venous Blood Culture - Preliminary No growth after 24 hours. Progress Note: A&P Assessment and plan (1) Acute respiratory failure with hypoxia: Status: Acute (2) Pulmonary edema: Status: Acute (3) Bilateral pneumonia: Status: Acute (4) Hypothyroidism: Status: Acute (5) COPD (chronic obstructive pulmonary disease): Status: Acute (6) Mood disorder: Status: Acute Plan Assessment: 52-year-old lady admitted with acute hypoxic respiratory failure secondary to combination bilateral pneumonia exacerbation of underlying diastolic congestive heart failure, briefly requiring CPAP support Plan: Neuro: No acute issues. Cardiac: Acute on chronic diastolic congestive heart failure improving with diuresis. Pulmonary: Acute hypoxic respiratory secondary to combination of pneumonia and acute congestive heart failure initially requiring CPAP support, now titrated to OxyMask. Elevated D-dimer, but no evidence of pulmonary emboli on V/Q scan. Renal: No acute issues. Endo: No acute issues. GI: No acute issues. ID: Broad-spectrum antibiotic coverage for pneumonia. Heme/Onc: No acute issues. Psych: No acute issues. Miscellaneous: No acute issues. Prophylaxis: Heparin Diet: Regular Quality Stroke Does the patient have a stroke diagnosis?: No VTE Prior VTE?: No VTE Risk Level:: Medical - moderate - high VTE Device Contraindication: Treatment Not Indicated VTE Drug Contraindication: N/A - Med Ordered
--- NOTE | 2023-05-18 11:43 | P.CDIM_ITS ---
PROVIDER RESPONSE TEXT: To clarify, the appropriate diagnosis supported by the clinical indicators: Acute QUERY TEXT: PHYSICIAN'S DOCUMENTATION REQUEST Date of Query: 05/18/2023 09:53 AM EDT Patient Name: Emely Desai Admit Date: 05/17/2023 Dear Esteban Burrows, A review of the medical record indicates additional documentation may be needed. Please review below and update the documentation accordingly. Clinical Indicators: Per Critical Care Progress Note 05/17/23: Chest x-ray also showing pulmonary edema. Received Lasix, Continue to monitor diuresing Clarify which of the following accurately represents the acuity of the Pulmonary edema. Possible options might include: Acute Acute on chronic Compensated Chronic stable condition Remission Other (explain) Clinically unable to determine (explain) Thank you, Dedra Suarez RN Use of terms such as suspected, likely, concern for, or probable (associated with a specific diagnosi s that is being evaluated, monitored, or treated as if it exists) are acceptable and can be coded in the inpatient se tting, when documented at the time of discharge. Please use your independent medical judgment in providing your response. THIS QUERY IS PART OF THE PERMANENT MEDICAL RECORD
[2023-05-18] MEDS: Lidocaine 4 % Patch ADH..PATCH 1 PATCH TRANSDERMA (14:23)
--- NOTE | 2023-05-18 16:14 | MHC.CM.PN ---
Pt in ICU on high flow O2 and in respiratory distress: Call placed to HCP, dtr Pooja. She states pt resides w/spouse and has an unknown amount of compensated WATERWAY TRAFFIC CHECKER care per week. She does not have DME or other services and WATERWAY TRAFFIC CHECKER assists w/transportation. Pt has been experiencing SOB/WOB per dtr for a long time Discussed possible d/c plans: home w/new VNA vs STR for respirtaoary management: dtr agreess to await clinical stability before assessments and referrals. is a provider at [facility] - dtr will call CM back with name. CM to follow.
[2023-05-18 20:39] LABS: Anion Gap 14 (12-20); Blood Urea Nitrogen 28 mg/dL (9-16); Calcium 9.7 mg/dL (8.4-10.2); Carbon Dioxide 28 mmol/L (22-29); Chloride 107 mmol/L (96-108); Creatinine Clr Calc Pharmacy 87.1; Estimated Glomerular Filt Rate 58; Glucose Random 119 mg/dL (60-115); Magnesium 2.2 mg/dL (1.6-2.6); Phosphorus 3.2 mg/dL (2.7-4.5); Potassium 3.4 mmol/L (3.3-5.1); Sodium 146 mmol/L (135-145)
[2023-05-18] MEDS: Potassium Chloride/H20 10 MEQ/100 ML PIGGYBACK 100 MEQ IV ×3 (21:33→23:34)
[2023-05-19] VITALS (34 sets, daily range): BP systolic 79–138; BP diastolic 36–78; PULSE 54–84; RESP 13–40; TEMP 36.8–37.7; O2SAT 89–98; BMI 40.9
[2023-05-19] MEDS: Potassium Chloride/H20 10 MEQ/100 ML PIGGYBACK 100 MEQ IV ×5 (00:46→14:49)
[2023-05-19] MEDS: Piperacillin Sodium/Tazobactam 4.5 GM in 0.9 % Sodium Chloride 100 ML IV ×4 (01:47→20:00)
[2023-05-19] MEDS: fentaNYL citrate/PF 100 MCG/2 ML VIAL 50 MCG IVPUSH ×5 (01:52→22:55)
[2023-05-19] MEDS: LORazepam 2 MG/ML VIAL 0.5 MG IVPUSH (04:35)
[2023-05-19 04:42] LABS: VBG Base Excess 6.1 mmol/L; VBG HCO3 30 mmol/L (22-26); VBG pCO2 42 mmHg; VBG pH 7.46 (7.32-7.43); VBG pO2 42 mmHg
[2023-05-19 05:02] LABS: MANUAL DIFF FLAG NO
[2023-05-19 05:05] LABS: Venous Blood Gas Refer to POC result
[2023-05-19 05:10] LABS: Basophils Percent Auto 0.1 % (0-2); Hematocrit 38.5 % (37.0-47.0); Hemoglobin 12.7 g/dl (12.0-16.0); Imm Gran Abs Auto 0.09 X10*3/uL (0.00-0.03); Imm Gran Pct Auto 0.6 % (0.0-0.4); Lymphocytes Absolute Auto 0.9 X10*3/uL (1.2-4.9); Lymphocytes Percent Auto 6.4 % (20-40); Mean Corpuscular Hemoglobin 30.4 pg (27.0-33.0); Mean Corpuscular Volume 92.1 fL (80.0-98.0); Mean Platelet Volume 14.6 fL (9.4-12.3); Monocytes Absolute Auto 0.7 X10*3/uL (0.1-1.2); Monocytes Percent Auto 4.6 % (2-11); Neutrophils Absolute Auto 12.5 x10*3/uL (2.0-8.3); Neutrophils Percent Auto 88.3 % (45-73); Platelet Count 126 X10*3/uL (160-400); Red Blood Count 4.18 X10*6/uL (4.20-5.50); Red Cell Distribution Width 13.6 % (11.0-16.0); White Blood Count 14.2 X10*3/uL (4.8-10.8)
[2023-05-19 05:25] LABS: Albumin Level 3.5 g/dL (3.5-5.0); Anion Gap 12 (12-20); Blood Urea Nitrogen 31 mg/dL (9-16); Calcium 9.6 mg/dL (8.4-10.2); Carbon Dioxide 29 mmol/L (22-29); Chloride 107 mmol/L (96-108); Creatinine Clr Calc Pharmacy 91.7; Estimated Glomerular Filt Rate > 60; Glucose Random 97 mg/dL (60-115); Magnesium 2.3 mg/dL (1.6-2.6); Phosphorus 2.7 mg/dL (2.7-4.5); Potassium 3.7 mmol/L (3.3-5.1); Sodium 144 mmol/L (135-145)
[2023-05-19] MEDS: Levothyroxine Sodium 100 MCG/5 ML VIAL 75 MCG IVPUSH (05:41)
[2023-05-19] MEDS: Pantoprazole Sodium 40 MG/10 ML VIAL IVPUSH (05:41)
[2023-05-19] MEDS: Enoxaparin Sodium 40 MG/0.4 ML SYRINGE SUBCUT (05:43)
--- NOTE | 2023-05-19 07:05 | PC.NURSE ---
Patient seen in ICU. Assumed care of patient at 19:00. Pt seen this admission for AHRF 2/2 bilateral lobe pna. Pt is drowsy but appropriately arousable to voice and staff entering the room, A&Ox4. 1x ativan IVP given for anxiety per SHIPPING CLERK. Nursing bedside swallow done per SHIPPING CLERK request prior to attempting to administer scheduled po meds though pt failed. SHIPPING CLERK notified and formal swallow eval from ST placed. Pt is forgetful at times re: NPO, education provided. PO care provided, though pt resistant to this and repositioning at times. Pt initially on HFNC 50L/70%, increased to 80% by RT on assuming care for desats to low 80?s with +effect. Pt tolerated cpap for a few hours overnight before returning to HFNC previous settings by RT per pt request. Q3h fentanyl for persistent coughing as ordered with +effect. No BM this shift. Denies n/v. Ruben remains patent of cyu, down-trending/ oliguric this morning. Pt on scheduled lasix IVP. SHIPPING CLERK made aware. KCl repleted overnight as ordered per evening labs. Please see shift assessments, tasks, and MAR for full details. Handoff report given to oncoming RN at 06:45.
[2023-05-19] MEDS: Lidocaine 4 % Patch ADH..PATCH 1 PATCH TRANSDERMA (08:10)
[2023-05-19] MEDS: Albuterol/Iprat 2.5/0.5MG 3 ML AMPUL.NEB INHALE ×4 (08:26→20:02)
[2023-05-19] MEDS: dexmedeTOMIDidine HCL/NS 400 MCG/100 ML INFUS..BTL 29.63 MCG IVCONT (08:50)
[2023-05-19] MEDS: Furosemide 40 MG/4 ML VIAL IVPUSH ×2 (09:18→17:56)
--- NOTE | 2023-05-19 09:44 | PM.CCPN ---
Subjective Subjective Date of Service: 05/19/23 Interval History: 52-year-old lady, active smoker, with underlying history of COPD, hypothyroidism, and mood disorder admitted on 05/17/2023 with progressive dyspnea over the prior 2 days. On ER evaluation patient with significant hypoxia requiring high-flow nasal cannula. CT chest demonstrating multifocal bilateral ground-glass infiltrates. Patient also febrile and with leukocytosis. She was started on empiric antibiotics and admitted to telemetry osman. However, her oxygen requirements progressed significantly and she was maxed out high-flow nasal cannula CPAP support admission to intensive care unit. No events overnight. Improving oxygenation, however has significant anxiety requiring Precedex drip. Critical Care Time (minutes): 0 Physical Exam Vital Signs: Vital Signs: Last Vital Signs Temp 99.7 F 05/19/23 09:00 Pulse 74 05/19/23 09:00 Resp 20 05/19/23 09:00 BP 116/71 05/19/23 09:00 Pulse Ox 95 05/19/23 09:00 O2 Del Method High Flow Nasal C annula 05/19/23 09:00 O2 Flow Rate 50 05/19/23 09:00 FiO2 65 05/19/23 09:00 BMI result Body Mass Index 40.9 Const: General: no acute distress, alert and awake Eyes: Sclerae: sclerae normal EOM: EOMs intact bilaterally Neck: Neck: Yes no lymphadenopathy, Yes trachea midline and Yes supple Resp: Effort & Inspection: normal respiratory effort and no respiratory distress Auscultation: crackles bilateral Cardio: Rate: regular rate Rhythm: regular rhythm Heart sounds: no gallops, no murmurs and no rubs GI: Palpation (GI): Soft to palpation and Other GI palpation findings present ( Nontender) Auscultation: normal bowel sounds Extrem: General: Yes no pedal edema, No clubbing and No cyanosis Objective Data Labs 05/19/23 04:36 05/19/23 04:36 Labs: Laboratory Results - last 24 hr 05/18/23 05/19/23 05/19/23 20:17 04:34 04:36 WBC 14.2 H RBC 4.18 L Hgb 12.7 Hct 38.5 MCV 92.1 MCH 30.4 MCHC 33.0 RDW 13.6 Plt Count 126 L MPV 14.6 H Immature Gran % (Auto) 0.6 H Neut % (Auto) 88.3 H Lymph % (Auto) 6.4 L [place] % (Auto) 4.6 Eos % (Auto) 0.0 Baso % (Auto) 0.1 Lymph # (Auto) 0.9 L [place] # (Auto) 0.7 Eos # (Auto) 0.0 Baso # (Auto) 0.0 Abs Immat Gran (auto) 0.09 H Absolute Neuts (auto) 12.5 H Absolute Nucleated RBC 0.000 Nucleated RBC % (auto) 0.0 VBG pH 7.46 H VBG pCO2 42 VBG pO2 42 VBG HCO3 30 H VBG O2 Saturation 70.0 VBG Base Excess 6.1 Sodium 146 H 144 Potassium 3.4 3.7 Chloride 107 107 Carbon Dioxide 28 29 Anion Gap 14 12 BUN 28 H 31 H Creatinine 1.00 0.95 Estim Creat Clear Calc 87.1 91.7 Estimated GFR 58 > 60 Random Glucose 119 H 97 Calcium 9.7 9.6 Phosphorus 3.2 2.7 Magnesium 2.2 2.3 Albumin 3.5 Microbiology Microbiology Results: Microbiology 05/17/23 00:31 Blood - Venous Blood Culture - Preliminary No growth after 48 hours. 05/17/23 00:31 Blood - Venous Blood Culture - Preliminary No growth after 48 hours. 05/17/23 Unknown Urine clean catch - Urine olguin top Urine Culture - Final Progress Note: A&P Assessment and plan (1) Pulmonary edema: Status: Acute (2) Bilateral pneumonia: Status: Acute (3) Acute respiratory failure with hypoxia: Status: Acute (4) Mood disorder: Status: Acute (5) COPD (chronic obstructive pulmonary disease): Status: Acute Plan Assessment: 52-year-old lady admitted with acute hypoxic respiratory failure secondary to combination bilateral pneumonia exacerbation of underlying diastolic congestive heart failure, briefly requiring CPAP support Plan: Neuro: Severe anxiety, continue to titrate off Precedex drip as tolerated. Cardiac: Acute on chronic diastolic congestive heart failure improving with diuresis. Pulmonary: Acute hypoxic respiratory secondary to combination of pneumonia and acute congestive heart failure initially requiring CPAP support, now titrated to OxyMask. Elevated D-dimer, but no evidence of pulmonary emboli on V/Q scan. Renal: No acute issues. Endo: No acute issues. GI: No acute issues. ID: Broad-spectrum antibiotic coverage for pneumonia. Heme/Onc: No acute issues. Psych: No acute issues. Miscellaneous: No acute issues. Prophylaxis: Heparin Diet: Regular Quality Stroke Does the patient have a stroke diagnosis?: No VTE Prior VTE?: No VTE Risk Level:: Medical - moderate - high VTE Device Contraindication: Treatment Not Indicated VTE Drug Contraindication: N/A - Med Ordered
[2023-05-19] MEDS: dexmedeTOMIDidine HCL/NS 400 MCG/100 ML INFUS..BTL 23.7 MCG IVCONT (11:02)
[2023-05-19] MEDS: Acetylcysteine 10 % 400 MG/4 ML VIAL INHALE ×2 (15:56→20:02)
[2023-05-19] MEDS: dexmedeTOMIDidine HCL/NS 400 MCG/100 ML INFUS..BTL 17.78 MCG IVCONT (16:24)
[2023-05-19] MEDS: traZODone HCL 50 MG TABLET PO (19:54)
[2023-05-19 20:02] LABS: Anion Gap 15 (12-20); Blood Urea Nitrogen 35 mg/dL (9-16); Carbon Dioxide 27 mmol/L (22-29); Chloride 103 mmol/L (96-108); Creatinine Clr Calc Pharmacy 98.4; Estimated Glomerular Filt Rate > 60; Glucose Random 118 mg/dL (60-115); Magnesium 2.2 mg/dL (1.6-2.6); Potassium 3.6 mmol/L (3.3-5.1); Sodium 141 mmol/L (135-145)
--- NOTE | 2023-05-19 20:22 | PM.EVENT ---
Documented by User: Adrián Carr NP 05/19/23 20:22 Event Note Date of Service: 05/19/23 Event Note: Hypotension is related to sedation from precedex. Time Spent With Patient Time: Total time managing care of this patient today ____ minutes. Documented by User: Esteban Burrows MD 05/20/23 09:19 Event Note Date of Service: 05/20/23
--- NOTE | 2023-05-19 23:39 | PC.NURSE ---
ASSUMED CARE OF PT AT 1900. PT ON HIGH FLOW BUT WAS ASKING TO GO ON CPAP. AT 194 PT PUT ON CPAP 15/40% BUT O2 WAS INCREASED TO 50% FOR SATS DOWN TO 87%. PT TACHYPNEIC UP TO 40. RECEIVED FENTANYL WITH GOOD EFFECT FOR UNCONTROLLABLE COUGH. PT SUCTIONS SELF WITH YANKAUR. HAS STRONG COUGH BUT MUCOUS THICK. RECEIVING MUCOMYST BYT RESP THERAPY. PT STATES IT HAS HELPED HER EXPECTORATE SPUTUM. WAS ON PRECEDEX BUT BP DROPPED TO 79/50. PRECEDEX SHUT OFF. BP IMPROVED. MONITOR SB-SR, RATE 50'S-60'S, NO ECTOPY. U/O GOOD AFTER ECEIVING LASIX.
[2023-05-20] VITALS (56 sets, daily range): BP systolic 71–150; BP diastolic 39–84; PULSE 42–85; RESP 14–40; TEMP 37.2–37.9; O2SAT 88–99; BMI 40.0
[2023-05-20] MEDS: Norepinephrine Bitartrate/D5W 8 MG/250 ML PLAST..BAG 11.11 MG IV (00:36)
[2023-05-20] MEDS: Albuterol Sulfate (0.083%) 2.5 MG/3 ML VIAL.NEB INHALE ×4 (01:25→20:13)
[2023-05-20] MEDS: Piperacillin Sodium/Tazobactam 4.5 GM in 0.9 % Sodium Chloride 100 ML IV ×4 (02:39→20:02)
[2023-05-20] MEDS: dexmedeTOMIDidine HCL/NS 400 MCG/100 ML INFUS..BTL 8.89 MCG IVCONT ×2 (03:20→13:56)
[2023-05-20 04:43] LABS: VBG Base Excess 6.2 mmol/L; VBG HCO3 28 mmol/L (22-26); VBG pCO2 35 mmHg; VBG pH 7.52 (7.32-7.43); VBG pO2 57 mmHg
[2023-05-20] MEDS: fentaNYL citrate/PF 100 MCG/2 ML VIAL 50 MCG IVPUSH ×4 (04:48→19:59)
[2023-05-20 05:01] LABS: MANUAL DIFF FLAG NO
[2023-05-20 05:05] LABS: Basophils Percent Auto 0.3 % (0-2); Eosinophils Absolute Auto 0.3 X10*3/uL (0.0-0.4); Eosinophils Percent Auto 2.7 % (0-4); Hematocrit 36.4 % (37.0-47.0); Imm Gran Abs Auto 0.09 X10*3/uL (0.00-0.03); Imm Gran Pct Auto 0.8 % (0.0-0.4); Lymphocytes Percent Auto 8.7 % (20-40); Mean Corpuscular Hemoglobin 30.2 pg (27.0-33.0); Mean Corpuscular Volume 91.7 fL (80.0-98.0); Mean Platelet Volume 14.1 fL (9.4-12.3); Monocytes Absolute Auto 0.4 X10*3/uL (0.1-1.2); Monocytes Percent Auto 3.8 % (2-11); Neutrophils Absolute Auto 9.1 x10*3/uL (2.0-8.3); Neutrophils Percent Auto 83.7 % (45-73); Platelet Count 140 X10*3/uL (160-400); Red Blood Count 3.97 X10*6/uL (4.20-5.50); Red Cell Distribution Width 13.4 % (11.0-16.0); White Blood Count 10.9 X10*3/uL (4.8-10.8)
[2023-05-20 05:20] LABS: Albumin Level 3.3 g/dL (3.5-5.0); Anion Gap 15 (12-20); Blood Urea Nitrogen 33 mg/dL (9-16); Calcium 9.1 mg/dL (8.4-10.2); Carbon Dioxide 26 mmol/L (22-29); Chloride 103 mmol/L (96-108); Creatinine Clr Calc Pharmacy 116.6; Estimated Glomerular Filt Rate > 60; Glucose Random 107 mg/dL (60-115); Magnesium 2.3 mg/dL (1.6-2.6); Phosphorus 3.5 mg/dL (2.7-4.5); Potassium 3.1 mmol/L (3.3-5.1); Sodium 141 mmol/L (135-145)
[2023-05-20 05:44] LABS: Venous Blood Gas Refer to POC result
[2023-05-20] MEDS: Levothyroxine Sodium 100 MCG/5 ML VIAL 75 MCG IVPUSH (06:22)
[2023-05-20] MEDS: Enoxaparin Sodium 40 MG/0.4 ML SYRINGE SUBCUT (06:23)
[2023-05-20] MEDS: Pantoprazole Sodium 40 MG/10 ML VIAL IVPUSH (06:23)
[2023-05-20] MEDS: Potassium Chloride/H20 10 MEQ/100 ML PIGGYBACK 100 MEQ IV ×4 (06:23→09:57)
--- NOTE | 2023-05-20 06:58 | PC.NURSE ---
Assumed care of patient at 23:45. Please see shift assessments, tasks, and MAR for full details. Handoff report given at 06:45 to oncoming RN.
[2023-05-20] MEDS: Acetylcysteine 10 % 400 MG/4 ML VIAL INHALE ×2 (08:36→20:13)
[2023-05-20] MEDS: Albuterol/Iprat 2.5/0.5MG 3 ML AMPUL.NEB INHALE (08:36)
[2023-05-20] MEDS: Furosemide 40 MG/4 ML VIAL IVPUSH (08:45)
[2023-05-20] MEDS: Lidocaine 4 % Patch ADH..PATCH 1 PATCH TRANSDERMA (08:45)
--- NOTE | 2023-05-20 09:19 | P.PNCC_ITS ---
Subjective Subjective Date of Service: 05/20/23 Interval History: 52-year-old lady, active smoker, with underlying history of COPD, hypothyroidism, and mood disorder admitted on 05/17/2023 with progressive dyspnea over the prior 2 days. On ER evaluation patient with significant hypoxia requiring high-flow nasal cannula. CT chest demonstrating multifocal bilateral ground-glass infiltrates. Patient also febrile and with leukocytosis. She was started on empiric antibiotics and admitted to telemetry osman. However, her oxygen requirements progressed significantly and she was maxed out high-flow nasal cannula CPAP support admission to intensive care unit. No events overnight. Improving oxygenation, however still requiring Precedex drip. Critical Care Time (minutes): 0 Physical Exam 2 Vital Signs: Vital Signs: Last Vital Signs Temp 100.2 F 05/20/23 08:59 Pulse 70 05/20/23 08:59 Resp 18 05/20/23 08:59 BP 134/74 05/20/23 08:59 Pulse Ox 91 L 05/20/23 08:59 O2 Del Method High Flow Nasal C annula 05/20/23 08:59 O2 Flow Rate 50 05/20/23 08:59 FiO2 60 05/20/23 08:59 BMI result Body Mass Index 40.0 Const: General: no acute distress, alert and awake Eyes: Sclerae: sclerae normal EOM: EOMs intact bilaterally Neck: Neck: Yes no lymphadenopathy, Yes trachea midline and Yes supple Resp: Effort & Inspection: normal respiratory effort and no respiratory distress Auscultation: rales bilateral Cardio: Rate: regular rate Rhythm: regular rhythm Heart sounds: no gallops, no murmurs and no rubs GI: Palpation (GI): Soft to palpation and Other GI palpation findings present ( Nontender) Auscultation: normal bowel sounds Extrem: General: Yes no pedal edema, No clubbing and No cyanosis Objective Data Labs 05/20/23 04:37 05/20/23 04:37 Labs: Laboratory Results - last 24 hr 05/19/23 05/20/23 05/20/23 19:39 04:35 04:37 WBC 10.9 H RBC 3.97 L Hgb 12.0 Hct 36.4 L MCV 91.7 MCH 30.2 MCHC 33.0 RDW 13.4 Plt Count 140 L MPV 14.1 H Immature Gran % (Auto) 0.8 H Neut % (Auto) 83.7 H Lymph % (Auto) 8.7 L [place] % (Auto) 3.8 Eos % (Auto) 2.7 Baso % (Auto) 0.3 Lymph # (Auto) 1.0 L [place] # (Auto) 0.4 Eos # (Auto) 0.3 Baso # (Auto) 0.0 Abs Immat Gran (auto) 0.09 H Absolute Neuts (auto) 9.1 H Absolute Nucleated RBC 0.000 Nucleated RBC % (auto) 0.0 VBG pH 7.52 H VBG pCO2 35 VBG pO2 57 VBG HCO3 28 H VBG O2 Saturation 88.0 VBG Base Excess 6.2 Sodium 141 141 Potassium 3.6 3.1 L Chloride 103 103 Carbon Dioxide 27 26 Anion Gap 15 15 BUN 35 H 33 H Creatinine 0.90 0.76 Estim Creat Clear Calc 98.4 116.6 Estimated GFR > 60 > 60 Random Glucose 118 H 107 Calcium 9.0 D 9.1 Phosphorus 4.0 3.5 Magnesium 2.2 2.3 Albumin 3.3 L Microbiology Microbiology Results: Microbiology 05/19/23 16:30 Sputum - Expectorated Gram Stain - Final 05/17/23 00:31 Blood - Venous Blood Culture - Preliminary No growth after 48 hours. 05/17/23 00:31 Blood - Venous Blood Culture - Preliminary No growth after 48 hours. 05/17/23 Unknown Urine clean catch - Urine olguin top Urine Culture - Final Progress Note: A&P Assessment and plan (1) Pulmonary edema: Status: Acute (2) Bilateral pneumonia: Status: Acute (3) Acute respiratory failure with hypoxia: Status: Acute (4) COPD (chronic obstructive pulmonary disease): Status: Acute (5) Mood disorder: Status: Acute (6) Hypothyroidism: Status: Acute Plan Assessment: 52-year-old lady admitted with acute hypoxic respiratory failure secondary to combination bilateral pneumonia exacerbation of underlying diastolic congestive heart failure, briefly requiring CPAP support Plan: Neuro: Severe anxiety, continue to titrate off Precedex drip as tolerated. Cardiac: Acute on chronic diastolic congestive heart failure improving with diuresis. Pulmonary: Acute hypoxic respiratory secondary to combination of pneumonia and acute congestive heart failure initially requiring CPAP support, now on high- flow nasal cannula. Elevated D-dimer, but no evidence of pulmonary emboli on V/Q scan. Renal: No acute issues. Endo: No acute issues. GI: No acute issues. ID: Broad-spectrum antibiotic coverage for pneumonia. Heme/Onc: No acute issues. Psych: No acute issues. Miscellaneous: No acute issues. Prophylaxis: Heparin Diet: Regular Quality Stroke Does the patient have a stroke diagnosis?: No VTE Prior VTE?: No VTE Risk Level:: Medical - moderate - high VTE Device Contraindication: Treatment Not Indicated VTE Drug Contraindication: N/A - Med Ordered
[2023-05-20] MEDS: Potassium Chloride Packet 20 MEQ PACKET 60 MEQ PO (09:25)
[2023-05-20] MEDS: Furosemide 200 MG in 0.9 % Sodium Chloride 80 ML IVCONT (09:40)
[2023-05-20] MEDS: Albumin Human 25 % 100 ML IV ×3 (09:51→21:13)
--- NOTE | 2023-05-20 15:11 | ECG_ITS ---
Test Reason : Chest Tightness Blood Pressure : / mmHG Vent. Rate : 049 BPM Atrial Rate : 049 BPM P-R Int : 172 ms QRS Dur : 086 ms QT Int : 442 ms P-R-T Axes : 050 009 014 degrees QTc Int : 399 ms Sinus bradycardia Otherwise normal ECG When compared with ECG of 17-MAY-2023 00:09, Vent. rate has decreased BY 37 BPM Nonspecific T wave abnormality no longer evident in Lateral leads Referred By: Esteban Burrows Electronically Signed By:NIKI LYNN MD
[2023-05-20 20:08] LABS: Anion Gap 16 (12-20); Blood Urea Nitrogen 19 mg/dL (9-16); Calcium 9.5 mg/dL (8.4-10.2); Carbon Dioxide 30 mmol/L (22-29); Chloride 99 mmol/L (96-108); Creatinine Clr Calc Pharmacy 110.8; Estimated Glomerular Filt Rate > 60; Glucose Random 91 mg/dL (60-115); Magnesium 2.2 mg/dL (1.6-2.6); Phosphorus 2.5 mg/dL (2.7-4.5); Potassium 3.2 mmol/L (3.3-5.1); Sodium 142 mmol/L (135-145)
[2023-05-20] MEDS: traZODone HCL 50 MG TABLET PO (21:12)
[2023-05-20] MEDS: Potassium Chloride Packet 20 MEQ PACKET 40 MEQ PO (21:12)
[2023-05-20] MEDS: Potassium Phosphate/NS 15 MMOL/250 ML PLAST..BAG 62.5 MMOL IV (21:13)
[2023-05-21] VITALS (19 sets, daily range): BP systolic 111–135; BP diastolic 56–91; PULSE 65–91; RESP 14–34; TEMP 36.1–37.8; O2SAT 90–97; BMI 39.7
[2023-05-21] MEDS: fentaNYL citrate/PF 100 MCG/2 ML VIAL 50 MCG IVPUSH ×2 (01:15→08:24)
[2023-05-21] MEDS: Piperacillin Sodium/Tazobactam 4.5 GM in 0.9 % Sodium Chloride 100 ML IV ×2 (03:09→08:24)
[2023-05-21] MEDS: Albumin Human 25 % 100 ML IV (03:09)
[2023-05-21] MEDS: Benzonatate 100 MG CAPSULE 200 MG PO ×3 (03:59→21:19)
[2023-05-21] MEDS: Pantoprazole Sodium 40 MG/10 ML VIAL IVPUSH (05:23)
[2023-05-21] MEDS: Enoxaparin Sodium 40 MG/0.4 ML SYRINGE SUBCUT (05:23)
[2023-05-21] MEDS: Levothyroxine Sodium 112 MCG, Levothyroxine Sodium 25 MCG 137 MCG PO (05:23)
[2023-05-21 05:34] LABS: VBG Base Excess 8.7 mmol/L; VBG HCO3 32 mmol/L (22-26); VBG pCO2 42 mmHg; VBG pH 7.49 (7.32-7.43); VBG pO2 30 mmHg
[2023-05-21 06:16] LABS: MANUAL DIFF FLAG NO
[2023-05-21 06:28] LABS: Basophils Percent Auto 0.1 % (0-2); Eosinophils Absolute Auto 0.4 X10*3/uL (0.0-0.4); Eosinophils Percent Auto 4.2 % (0-4); Hematocrit 35.8 % (37.0-47.0); Imm Gran Abs Auto 0.07 X10*3/uL (0.00-0.03); Imm Gran Pct Auto 0.8 % (0.0-0.4); Lymphocytes Absolute Auto 1.1 X10*3/uL (1.2-4.9); Lymphocytes Percent Auto 13.3 % (20-40); Mean Corpuscular HGB Conc 33.5 g/dl (31.0-35.0); Mean Corpuscular Hemoglobin 30.2 pg (27.0-33.0); Mean Corpuscular Volume 90.2 fL (80.0-98.0); Mean Platelet Volume 14.4 fL (9.4-12.3); Monocytes Absolute Auto 0.3 X10*3/uL (0.1-1.2); Monocytes Percent Auto 3.5 % (2-11); Neutrophils Absolute Auto 6.5 x10*3/uL (2.0-8.3); Neutrophils Percent Auto 78.1 % (45-73); Platelet Count 113 X10*3/uL (160-400); Red Blood Count 3.97 X10*6/uL (4.20-5.50); Red Cell Distribution Width 13.2 % (11.0-16.0); White Blood Count 8.4 X10*3/uL (4.8-10.8)
[2023-05-21 06:32] LABS: Albumin Level 4.6 g/dL (3.5-5.0); Anion Gap 19 (12-20); Blood Urea Nitrogen 17 mg/dL (9-16); Calcium 9.8 mg/dL (8.4-10.2); Carbon Dioxide 30 mmol/L (22-29); Chloride 98 mmol/L (96-108); Creatinine Clr Calc Pharmacy 108.9; Estimated Glomerular Filt Rate > 60; Glucose Random 79 mg/dL (60-115); Magnesium 2.3 mg/dL (1.6-2.6); Potassium 3.5 mmol/L (3.3-5.1); Sodium 143 mmol/L (135-145)
[2023-05-21 06:40] LABS: Venous Blood Gas Refer to POC result
[2023-05-21] MEDS: Acetylcysteine 10 % 400 MG/4 ML VIAL INHALE ×2 (08:03→20:07)
[2023-05-21] MEDS: DULoxetine HCl 60 MG CAPSULE.DR PO (08:24)
[2023-05-21] MEDS: Gabapentin 400 MG CAPSULE 800 MG PO (08:24)
[2023-05-21] MEDS: Lidocaine 4 % Patch ADH..PATCH 1 PATCH TRANSDERMA (08:25)
[2023-05-21] MEDS: Potassium Chloride Packet 20 MEQ PACKET 40 MEQ PO (08:25)
[2023-05-21] MEDS: Furosemide 200 MG in 0.9 % Sodium Chloride 80 ML IVCONT (08:51)
[2023-05-21] MEDS: Potassium Chloride Packet 20 MEQ PACKET 60 MEQ PO (09:15)
--- NOTE | 2023-05-21 10:17 | P.PNCC_ITS ---
Subjective Subjective Date of Service: 05/21/23 Interval History: 52-year-old lady, active smoker, with underlying history of COPD, hypothyroidism, and mood disorder admitted on 05/17/2023 with progressive dyspnea over the prior 2 days. On ER evaluation patient with significant hypoxia requiring high-flow nasal cannula. CT chest demonstrating multifocal bilateral ground-glass infiltrates. Patient also febrile and with leukocytosis. She was started on empiric antibiotics and admitted to telemetry osman. However, her oxygen requirements progressed significantly and she was maxed out high-flow nasal cannula CPAP support admission to intensive care unit. No events overnight. Titrated off Precedex drip. Critical Care Time (minutes): 0 Physical Exam 2 Vital Signs: Vital Signs: Last Vital Signs Temp 100.0 F 05/21/23 08:00 Pulse 90 05/21/23 08:44 Resp 15 05/21/23 08:06 BP 123/64 05/21/23 08:44 Pulse Ox 95 05/21/23 08:00 O2 Del Method High Flow Nasal C annula 05/21/23 08:00 O2 Flow Rate 40 05/21/23 08:00 FiO2 55 05/21/23 08:00 BMI result Body Mass Index 39.7 Const: General: no acute distress, alert and awake Eyes: Sclerae: sclerae normal EOM: EOMs intact bilaterally Neck: Neck: Yes no lymphadenopathy, Yes trachea midline and Yes supple Resp: Effort & Inspection: normal respiratory effort and no respiratory distress Auscultation: crackles bilateral Cardio: Rate: regular rate Rhythm: regular rhythm Heart sounds: no gallops, no murmurs and no rubs GI: Palpation (GI): Soft to palpation and Other GI palpation findings present ( Nontender) Auscultation: normal bowel sounds Extrem: General: Yes no pedal edema, No clubbing and No cyanosis Objective Data Labs 05/21/23 05:30 05/21/23 05:30 Labs: Laboratory Results - last 24 hr 05/20/23 05/21/23 05/21/23 19:25 05:27 05:30 WBC 8.4 RBC 3.97 L Hgb 12.0 Hct 35.8 L MCV 90.2 MCH 30.2 MCHC 33.5 RDW 13.2 Plt Count 113 L MPV 14.4 H Immature Gran % (Auto) 0.8 H Neut % (Auto) 78.1 H Lymph % (Auto) 13.3 L [place] % (Auto) 3.5 Eos % (Auto) 4.2 H Baso % (Auto) 0.1 Lymph # (Auto) 1.1 L [place] # (Auto) 0.3 Eos # (Auto) 0.4 Baso # (Auto) 0.0 Abs Immat Gran (auto) 0.07 H Absolute Neuts (auto) 6.5 Absolute Nucleated RBC 0.000 Nucleated RBC % (auto) 0.0 VBG pH 7.49 H VBG pCO2 42 VBG pO2 30 VBG HCO3 32 H VBG O2 Saturation 45.0 VBG Base Excess 8.7 Sodium 142 143 Potassium 3.2 L 3.5 Chloride 99 98 Carbon Dioxide 30 H 30 H Anion Gap 16 19 BUN 19 H 17 H Creatinine 0.79 0.80 Estim Creat Clear Calc 110.8 108.9 Estimated GFR > 60 > 60 Random Glucose 91 79 Calcium 9.5 9.8 Phosphorus 2.5 L 3.0 Magnesium 2.2 2.3 Albumin 4.6 Microbiology Microbiology Results: Microbiology 05/19/23 16:30 Sputum - Expectorated Gram Stain - Final 05/19/23 16:30 Sputum - Expectorated Sputum Culture - Final 05/17/23 00:31 Blood - Venous Blood Culture - Preliminary No growth after 48 hours. 05/17/23 00:31 Blood - Venous Blood Culture - Preliminary No growth after 48 hours. 05/17/23 Unknown Urine clean catch - Urine olguin top Urine Culture - Final Progress Note: A&P Assessment and plan (1) Pulmonary edema: Status: Acute (2) Bilateral pneumonia: Status: Acute (3) Acute respiratory failure with hypoxia: Status: Acute (4) COPD (chronic obstructive pulmonary disease): Status: Acute (5) Hypothyroidism: Status: Acute (6) Mood disorder: Status: Acute Plan Assessment: 52-year-old lady admitted with acute hypoxic respiratory failure secondary to combination bilateral pneumonia exacerbation of underlying diastolic congestive heart failure, briefly requiring CPAP support Plan: Neuro: Severe anxiety, titrated off Precedex drip. Cardiac: Acute on chronic diastolic congestive heart failure improving with diuresis. Pulmonary: Acute hypoxic respiratory secondary to combination of pneumonia and acute congestive heart failure initially requiring CPAP support, now on high- flow nasal cannula/oxymask. Elevated D-dimer, but no evidence of pulmonary emboli on V/Q scan. Renal: No acute issues. Endo: No acute issues. GI: No acute issues. ID: Antibiotics narrowed to levaquin. Heme/Onc: No acute issues. Psych: No acute issues. Miscellaneous: No acute issues. Prophylaxis: Heparin Diet: Regular Quality Stroke Does the patient have a stroke diagnosis?: No VTE Prior VTE?: No VTE Risk Level:: Medical - moderate - high VTE Device Contraindication: Treatment Not Indicated VTE Drug Contraindication: N/A - Med Ordered
--- NOTE | 2023-05-21 10:45 | PC.NURSE ---
Patient transferred to [facility]. VO Dr Burrows do not remove sigala - patient on Lasix gtt and requiring accurate I&Os.
--- NOTE | 2023-05-21 11:55 | PM.EVENT ---
Event Note Date of Service: 06/30/23 Event Note: Pt seen and examined and discussed with ICU provider. Initially admitted to hospitalist service with acute hypoxic respiratory failure d/t multifocal PNA, and likely fluid overload. Given persistent hypoxia on max high flow, she was trasfered to the ICU where she continued IV Abx for PNA, IV diuretics for fluid overload, her condition was further complicated by agitation/delirium and need precedex drip.. Her condition has improved and is transfered back to medical serivice today Will continue IV Abx with Levaquin Wean IV Lasix drip, consider cardiology consultatio continue meds for mood stabilization Time Spent With Patient Time: Total time managing care of this patient today ____ minutes.
[2023-05-21] MEDS: levoFLOXacin/D5W 750 MG/150 ML PIGGYBACK 100 MG IV (13:07)
--- NOTE | 2023-05-21 14:05 | MHC.CM.PN ---
Pt transferred out of ICU today - unknown if she will require new home O2: referral made to NA in the event she does for cardio/pulmonary assessments. Family to transport pt to home. CM to follow.
[2023-05-21] MEDS: Morphine Sulfate 2 MG/ML CARTRIDGE IVPUSH ×2 (14:45→21:17)
[2023-05-21] MEDS: 0.9 % Sodium Chloride Flush 3 ML SYRINGE IVFLUSH ×2 (15:41→21:20)
[2023-05-21] MEDS: ondansetron HCL 4 MG/2 ML VIAL IVPUSH (15:41)
[2023-05-21] MEDS: Albuterol Sulfate (0.083%) 2.5 MG/3 ML VIAL.NEB INHALE (20:07)
[2023-05-21] MEDS: Melatonin 3 MG TABLET 6 MG PO (21:17)
[2023-05-21] MEDS: traZODone HCL 50 MG TABLET PO (21:17)
[2023-05-22] VITALS (13 sets, daily range): BP systolic 94–121; BP diastolic 54–63; PULSE 63–83; RESP 17–20; TEMP 36.2–36.9; O2SAT 90–99; BMI 40.6
[2023-05-22] MEDS: Acetaminophen 325 MG TABLET 650 MG PO ×4 (00:53→19:49)
[2023-05-22] MEDS: Morphine Sulfate 2 MG/ML CARTRIDGE IVPUSH (01:23)
[2023-05-22] MEDS: Enoxaparin Sodium 40 MG/0.4 ML SYRINGE SUBCUT (05:59)
[2023-05-22] MEDS: Levothyroxine Sodium 112 MCG, Levothyroxine Sodium 25 MCG 137 MCG PO (05:59)
[2023-05-22] MEDS: Benzonatate 100 MG CAPSULE 200 MG PO ×2 (06:30→19:49)
[2023-05-22 07:22] LABS: Venous Blood Gas Refer to POC result
[2023-05-22 07:22] LABS: VBG Base Excess 9.3 mmol/L; VBG HCO3 35 mmol/L (22-26); VBG pCO2 50 mmHg; VBG pH 7.44 (7.32-7.43); VBG pO2 57 mmHg
[2023-05-22 07:25] LABS: Basophils Percent Auto 0.2 % (0-2); Eosinophils Absolute Auto 0.2 X10*3/uL (0.0-0.4); Eosinophils Percent Auto 1.6 % (0-4); Hematocrit 39.8 % (37.0-47.0); Hemoglobin 13.4 g/dl (12.0-16.0); Imm Gran Abs Auto 0.08 X10*3/uL (0.00-0.03); Imm Gran Pct Auto 0.7 % (0.0-0.4); Lymphocytes Absolute Auto 1.3 X10*3/uL (1.2-4.9); Lymphocytes Percent Auto 12.2 % (20-40); Mean Corpuscular HGB Conc 33.7 g/dl (31.0-35.0); Mean Corpuscular Hemoglobin 30.5 pg (27.0-33.0); Mean Corpuscular Volume 90.7 fL (80.0-98.0); Mean Platelet Volume 13.8 fL (9.4-12.3); Monocytes Absolute Auto 0.3 X10*3/uL (0.1-1.2); Monocytes Percent Auto 2.8 % (2-11); Neutrophils Percent Auto 82.5 % (45-73); Red Blood Count 4.39 X10*6/uL (4.20-5.50)
[2023-05-22 07:33] LABS: Platelet Count 157 X10*3/uL (160-400); White Blood Count 10.9 X10*3/uL (4.8-10.8)
[2023-05-22 07:39] LABS: Albumin Level 4.2 g/dL (3.5-5.0); Anion Gap 18 (12-20); Blood Urea Nitrogen 18 mg/dL (9-16); Calcium 10.3 mg/dL (8.4-10.2); Carbon Dioxide 30 mmol/L (22-29); Chloride 97 mmol/L (96-108); Creatinine Clr Calc Pharmacy 75.4; Estimated Glomerular Filt Rate 49; Glucose Random 105 mg/dL (60-115); Phosphorus 4.6 mg/dL (2.7-4.5); Potassium 3.3 mmol/L (3.3-5.1); Sodium 142 mmol/L (135-145)
[2023-05-22] MEDS: Acetylcysteine 10 % 400 MG/4 ML VIAL INHALE (07:59)
[2023-05-22] MEDS: DULoxetine HCl 60 MG CAPSULE.DR PO (09:20)
[2023-05-22] MEDS: Lidocaine 4 % Patch ADH..PATCH 1 PATCH TRANSDERMA (09:21)
[2023-05-22] MEDS: Furosemide 200 MG in 0.9 % Sodium Chloride 80 ML IVCONT (09:21)
[2023-05-22] MEDS: levoFLOXacin/D5W 750 MG/150 ML PIGGYBACK 100 MG IV (09:21)
[2023-05-22] MEDS: Gabapentin 400 MG CAPSULE 800 MG PO (09:21)
[2023-05-22] MEDS: Tiotropium Bromide 2.5 mcg 1 PUFF/2.5 MCG MIST.INHAL INHALE (11:26)
[2023-05-22] MEDS: ondansetron HCL 4 MG/2 ML VIAL IVPUSH ×2 (12:07→22:52)
--- NOTE | 2023-05-22 14:17 | P.PNIM_ITS ---
Subjective Subjective Date of Service: 05/22/23 Interval History: pneumonia Review of Systems Shortness of breaths somewhat improving since yesterday Still has cough and felt some congestion Somewhat anxious no fevers Physical Exam 2 Vital Signs: Vital Signs: Last Vital Signs Temp 98.4 F 05/22/23 11:10 Pulse 83 05/22/23 11:27 Resp 18 05/22/23 11:46 BP 94/60 05/22/23 11:10 Pulse Ox 96 05/22/23 11:10 O2 Del Method High Flow Nasal C annula 05/22/23 11:10 O2 Flow Rate 45 05/22/23 11:10 FiO2 70 05/22/23 11:10 BMI result Body Mass Index 40.6 Appearance: Alert.? Oriented X3.? ?. cvs: rrr, [id number] , no murmur res: air entry somewhat improving but still diminshed at bases. abd: no rebound or guarding ,nt, bs present. ext pulses present , no cyanosis. neuro: axo3 , nonfocal. Objective Data Active Medications Acetaminophen (Acetaminophen 325 Mg Tablet) 650 mg PO Q6H PRN PRN Reason: Pain, Mild (Pain Scale 1-3) Last Admin: 05/22/23 11:39 Dose: 650 mg Documented By: KOLTON Acetylcysteine (Acetylcysteine 10 % 400 Mg/4 Ml Vial) 400 mg INHALE RBID [facility] Last Admin: 05/22/23 07:59 Dose: 400 mg Documented By: ROSEMARY Albuterol Sulfate (Albuterol Sulfate (0.083%) 2.5 Mg/3 Ml Vial.Neb) 2.5 mg INHALE Q4H PRN PRN Reason: Shortness of Breath/Wheezing Last Admin: 05/21/23 20:07 Dose: 2.5 mg Documented By: TOÑITO Benzonatate (Benzonatate 100 Mg Capsule) 200 mg PO TID PRN PRN Reason: Cough Last Admin: 05/22/23 06:30 Dose: 200 mg Documented By: HERB Duloxetine HCl (Duloxetine Hcl 60 Mg Capsule.) 60 mg PO DAILY [facility] Last Admin: 05/22/23 09:20 Dose: 60 mg Documented By: KOLTON Enoxaparin Sodium (Enoxaparin Sodium 40 Mg/0.4 Ml Syringe) 40 mg SUBCUT Q24H [facility] Last Admin: 05/22/23 05:59 Dose: 40 mg Documented By: HERB Gabapentin (Gabapentin 400 Mg Capsule) 800 mg PO DAILY [facility] Last Admin: 05/22/23 09:21 Dose: 800 mg Documented By: KOLTON Levofloxacin (Levaquin) 750 mg in 150 mls @ 100 mls/hr IV Q24H [facility] Last Infusion: 05/22/23 11:27 Dose: Infused Documented By: KOLTON Levothyroxine Sodium 112 mcg/ (Levothyroxine Sodium 25 mcg) 137 mcg PO DAILY@0600 [facility] Last Admin: 05/22/23 05:59 Dose: 137 mcg Documented By: HERB Lidocaine (Lidocaine 4 % Patch Adh..Patch) 1 patch TRANSDERMA DAILY [facility]; Protocol Last Admin: 05/22/23 09:21 Dose: 1 patch Documented By: KOLTON Melatonin (Melatonin 3 Mg Tablet) 6 mg PO BEDTIME PRN PRN Reason: Insomnia Last Admin: 05/21/23 21:17 Dose: 6 mg Documented By: HERB Morphine Sulfate (Morphine Sulfate 2 Mg/Ml Cartridge) 2 mg IVPUSH Q6H PRN; Protocol PRN Reason: Pain, Severe (Pain Scale 7-10) Last Admin: 05/22/23 01:23 Dose: 2 mg Documented By: HERB Comments: per MD Jeffry Mccarthy to give dose early. Ondansetron HCl (Ondansetron Hcl 4 Mg/2 Ml Vial) 4 mg IVPUSH Q8H PRN PRN Reason: Nausea and Vomiting Last Admin: 05/22/23 12:07 Dose: 4 mg Documented By: KOLTON Sodium Chloride (0.9 % Sodium Chloride Flush 3 Ml Syringe) 3 ml IVFLUSH QSHIFT [facility] Last Admin: 05/22/23 09:36 Dose: Not Given Documented By: KOLTON Non-Admin Reason: IV Running Tiotropium [place] (Tiotropium [place] 2.5 Mcg 1 Puff/2.5 Mcg Mist.Inhal) 1 puff INHALE RDAILY [facility] Last Admin: 05/22/23 11:26 Dose: 1 puff Documented By: ROSEMARY Trazodone HCl (Trazodone Hcl 50 Mg Tablet) 50 mg PO BEDTIME [facility] Last Admin: 05/21/23 21:17 Dose: 50 mg Documented By: HERB Labs 05/22/23 07:06 05/22/23 07:06 Labs: Laboratory Results - last 24 hr 05/22/23 05/22/23 07:06 07:14 MCV 90.7 MCH 30.5 MCHC 33.7 RDW 13.0 Plt Count 157 L D MPV 13.8 H Immature Gran % (Auto) 0.7 H Neut % (Auto) 82.5 H Lymph % (Auto) 12.2 L [place] % (Auto) 2.8 Eos % (Auto) 1.6 Baso % (Auto) 0.2 Lymph # (Auto) 1.3 [place] # (Auto) 0.3 Eos # (Auto) 0.2 Baso # (Auto) 0.0 Abs Immat Gran (auto) 0.08 H Absolute Neuts (auto) 9.0 H Absolute Nucleated RBC 0.000 Nucleated RBC % (auto) 0.0 VBG pH 7.44 H VBG pCO2 50 VBG pO2 57 VBG HCO3 35 H VBG O2 Saturation 86.0 VBG Base Excess 9.3 Anion Gap 18 Estim Creat Clear Calc 75.4 Estimated GFR 49 Random Glucose 105 Calcium 10.3 H Phosphorus 4.6 H Magnesium 2.0 Albumin 4.2 Microbiology Microbiology Results: Microbiology 05/17/23 00:31 Blood Culture - Final Blood - Venous No growth after 5 days. 05/17/23 00:31 Blood Culture - Final Blood - Venous No growth after 5 days. Assessment and Plan (1) Pulmonary edema: Status: Acute (2) Acute respiratory distress: Status: Acute (3) Bilateral pneumonia: Status: Acute Plan 52 year old female with pertinent history of COPD not on home oxygen, mood disorder, hypothyroidism, gastroesophageal reflux disease who presents to the emergency department for evaluation of dyspnea, fever and cough, Flu/RSV/Sars negaitive-admitted for Acute hypoxemic respiratory failure and sepsis due to pneumonia leading to acute exacerbation of COPD-went ot icu for acute hypoxic respiratory failure d/t multifocal PNA, and likely fluid overload-treated with cpap,high flow ,antibiotics -transfer to the floor patient is still on high-flow and antibiotics. Acute hypoxemic respiratory failure-multifactorial(COPD, pneumonia,question fluid overload) ct chest-multifocal bilateral ground-glass infiltrates venous dupplex lower ext and v/q scan negative patient received -on neb,levaquin ,also received lasix drip echo-seem ef 70% diursed i/o:6.5 liter negative continue nebs,antibiotics,high flow ,will stop lasix drip -since she is alkalotic and sob somewhat improving and she is 6.5 negative. Multifocal PNA as cause of resp failure, copd exacer Continue IV levaquin,follow cultures COPD exacerbation -bronchodilators by [facility] Pulmonology following Hypothyroidism- On Synthroid once confirmed Gastroesophageal reflux disease: continue PPI Mood disorder: Continue home mood stabilizers . she required precedix drip in icu for anxiety added psych eval for severe anxiety. DVT prophylaxis: Lovenox need for inpatient: Acut hypoxic resp failure on [place], multifocal PNA on IV Abx, IV steroid for copd--this can not be done on outpatient basis Quality Stroke Does the patient have a stroke diagnosis?: No VTE Prior VTE?: No VTE Risk Level:: Medical - moderate - high VTE Device Contraindication: Treatment Not Indicated VTE Drug Contraindication: N/A - Med Ordered
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
[2023-05-22] MEDS: LORazepam 0.5 MG TABLET PO (16:32)
[2023-05-22] MEDS: 0.9 % Sodium Chloride Flush 3 ML SYRINGE IVFLUSH (16:35)
[2023-05-22] MEDS: traZODone HCL 50 MG TABLET PO (23:35)
[2023-05-23] VITALS (10 sets, daily range): BP systolic 96–104; BP diastolic 57–70; PULSE 68–99; RESP 16–20; TEMP 35.9–36.6; O2SAT 91–100; BMI 40.0
[2023-05-23] MEDS: Acetaminophen 325 MG TABLET 650 MG PO ×2 (05:40→16:45)
[2023-05-23] MEDS: LORazepam 0.5 MG TABLET PO (05:41)
[2023-05-23] MEDS: Levothyroxine Sodium 112 MCG, Levothyroxine Sodium 25 MCG 137 MCG PO (05:41)
[2023-05-23] MEDS: Tiotropium Bromide 2.5 mcg 1 PUFF/2.5 MCG MIST.INHAL INHALE (08:15)
[2023-05-23] MEDS: Lidocaine 4 % Patch ADH..PATCH 1 PATCH TRANSDERMA (09:31)
[2023-05-23] MEDS: DULoxetine HCl 60 MG CAPSULE.DR PO (09:31)
[2023-05-23] MEDS: Gabapentin 400 MG CAPSULE 800 MG PO (09:31)
[2023-05-23] MEDS: 0.9 % Sodium Chloride Flush 3 ML SYRINGE IVFLUSH ×3 (09:32→16:35)
[2023-05-23 10:25] LABS: Adenovirus PCR Not Detected (Not Detect.); Bordetella parapertussis PCR Not Detected (Not Detect.); Bordetella pertussis PCR Not Detected (Not Detect.); Chlamydia pneumoniae PCR Not Detected (Not Detect.); Coronavirus 229E PCR Not Detected (Not Detect.); Coronavirus HKU1 PCR Not Detected (Not Detect.); Coronavirus NL63 PCR Not Detected (Not Detect.); Coronavirus OC43 PCR Not Detected (Not Detect.); Human metapneumovirus PCR Not Detected (Not Detect.); Influenza A PCR Not Detected (Not Detect.); Influenza B PCR Not Detected (Not Detect.); Mycoplasma pneumoniae PCR Not Detected (Not Detect.); Parainfluenza 1 PCR Not Detected (Not Detect.); Parainfluenza 2 PCR Not Detected (Not Detect.); Parainfluenza 3 PCR Not Detected (Not Detect.); Parainfluenza 4 PCR Not Detected (Not Detect.); RSV PCR Not Detected (Not Detect.); Rhino/Enterovirus PCR Not Detected (Not Detect.)
--- NOTE | 2023-05-23 10:51 | MHC.CM.PN ---
EMR reviewed and per MD rounds, pt is not medically cleared for D/C due to management of acute hypoxic respiratory failure and pneumonia, with pt remaining on hi-flow.
[2023-05-23 11:04] LABS: SARS-CoV-2 PCR Not Detected (Not Detect.)
[2023-05-23] MEDS: levoFLOXacin/D5W 750 MG/150 ML PIGGYBACK 100 MG IV (11:51)
[2023-05-23] MEDS: ondansetron HCL 4 MG/2 ML VIAL IVPUSH ×2 (11:59→22:38)
[2023-05-23] MEDS: Throat Lozenge, Medicated LOZENGE 1 LOZENGE MUCOUS MEM ×3 (12:04→19:04)
--- NOTE | 2023-05-23 14:48 | HO.PM.IMPN ---
Subjective Subjective Date of Service: 05/23/23 Interval History: pneumonia Review of Systems Shortness of breath and cough -somewhat improivng less anxious,no fevers Physical Exam Vital Signs: Vital Signs: Last Vital Signs Temp 96.7 F L 05/23/23 10:49 Pulse 84 05/23/23 10:49 Resp 20 05/23/23 11:27 BP 98/70 05/23/23 10:49 Pulse Ox 94 05/23/23 10:49 O2 Del Method High Flow Nasal C annula 05/23/23 10:49 O2 Flow Rate 30 05/23/23 03:56 FiO2 60 05/23/23 03:56 BMI result Body Mass Index 40.0 Appearance: Alert.? Oriented X3.? ?. cvs: rrr, [id number] , no murmur res: air entry somewhat improving but still diminshed at bases. abd: no rebound or guarding ,nt, bs present. ext pulses present , no cyanosis. neuro: axo3 , nonfocal. Objective Data Active Medications Acetaminophen (Acetaminophen 325 Mg Tablet) 650 mg PO Q6H PRN PRN Reason: Pain, Mild (Pain Scale 1-3) Last Admin: 05/23/23 05:40 Dose: 650 mg Documented By: SERGIO Albuterol Sulfate (Albuterol Sulfate (0.083%) 2.5 Mg/3 Ml Vial.Neb) 2.5 mg INHALE Q4H PRN PRN Reason: Shortness of Breath/Wheezing Last Admin: 05/21/23 20:07 Dose: 2.5 mg Documented By: TOÑITO Benzocaine (Throat Lozenge, Medicated Lozenge) 1 lozenge MUCOUS MEM Q2H PRN PRN Reason: Sore Throat Last Admin: 05/23/23 12:04 Dose: 1 lozenge Documented By: KOLTON Benzonatate (Benzonatate 100 Mg Capsule) 200 mg PO TID PRN PRN Reason: Cough Last Admin: 05/22/23 19:49 Dose: 200 mg Documented By: SERGIO Duloxetine HCl (Duloxetine Hcl 60 Mg Capsule.) 60 mg PO DAILY [facility] Last Admin: 05/23/23 09:31 Dose: 60 mg Documented By: DAV Enoxaparin Sodium (Enoxaparin Sodium 40 Mg/0.4 Ml Syringe) 40 mg SUBCUT Q24H [facility] Last Admin: 05/23/23 05:53 Dose: Not Given Documented By: SERGIO Non-Admin Reason: See Note Gabapentin (Gabapentin 400 Mg Capsule) 800 mg PO DAILY [facility] Last Admin: 05/23/23 09:31 Dose: 800 mg Documented By: DAV Levofloxacin (Levaquin) 750 mg in 150 mls @ 100 mls/hr IV Q24H [facility] Last Infusion: 05/23/23 13:36 Dose: Infused Documented By: KOLTON Levothyroxine Sodium 112 mcg/ (Levothyroxine Sodium 25 mcg) 137 mcg PO DAILY@0600 [facility] Last Admin: 05/23/23 05:41 Dose: 137 mcg Documented By: SERGIO Lidocaine (Lidocaine 4 % Patch Adh..Patch) 1 patch TRANSDERMA DAILY [facility]; Protocol Last Admin: 05/23/23 09:31 Dose: 1 patch Documented By: DAV Lorazepam (Lorazepam 0.5 Mg Tablet) 0.5 mg PO Q6H PRN PRN Reason: Anxiety Last Admin: 05/23/23 05:41 Dose: 0.5 mg Documented By: SERGIO Melatonin (Melatonin 3 Mg Tablet) 6 mg PO BEDTIME PRN PRN Reason: Insomnia Last Admin: 05/21/23 21:17 Dose: 6 mg Documented By: HERB Morphine Sulfate (Morphine Sulfate 2 Mg/Ml Cartridge) 2 mg IVPUSH Q6H PRN; Protocol PRN Reason: Pain, Severe (Pain Scale 7-10) Last Admin: 05/22/23 01:23 Dose: 2 mg Documented By: HERB Comments: per MD Jeffry Mccarthy to give dose early. Ondansetron HCl (Ondansetron Hcl 4 Mg/2 Ml Vial) 4 mg IVPUSH Q8H PRN PRN Reason: Nausea and Vomiting Last Admin: 05/23/23 11:59 Dose: 4 mg Documented By: KOLTON Sodium Chloride (0.9 % Sodium Chloride Flush 3 Ml Syringe) 3 ml IVFLUSH QSHIFT [facility] Last Admin: 05/23/23 09:32 Dose: 3 ml Documented By: DAV Tiotropium [place] (Tiotropium [place] 2.5 Mcg 1 Puff/2.5 Mcg Mist.Inhal) 1 puff INHALE RDAILY [facility] Last Admin: 05/23/23 08:15 Dose: 1 puff Documented By: JOHN Trazodone HCl (Trazodone Hcl 50 Mg Tablet) 50 mg PO BEDTIME [facility] Last Admin: 05/22/23 23:35 Dose: 50 mg Documented By: SERGIO Labs 05/22/23 07:06 05/22/23 07:06 Labs: Laboratory Results - last 24 hr 05/22/23 16:35 Respiratory Panel Cerna See Note Adenovirus (Rapid PCR) Not Detected B.pert (TEM-PCR) Not Detected B.parapertussis DNA PCR Not Detected C. pneumoniae DNA (PCR) Not Detected Coronavirus OC43 (PCR) Not Detected Coronavirus HKU1 (PCR) Not Detected Coronavirus 229E (PCR) Not Detected Coronavirus NL63 (PCR) Not Detected Human Metapneumovir PCR Not Detected Influenza A (RT-PCR) Not Detected Influenza B (RT-PCR) Not Detected M. pneumoniae (PCR) Not Detected Parainfluenza 1 (PCR) Not Detected Parainfluenza 2 (PCR) Not Detected Parainfluenza 3 (PCR) Not Detected Parainfluenza 4 (PCR) Not Detected RSV (PCR) Not Detected Entero/Rhino (PCR) Not Detected SARS-CoV-2 RNA (RT-PCR) Not Detected Assessment and Plan (1) Acute respiratory distress: Status: Acute (2) Bilateral pneumonia: Status: Acute Plan 52 year old female with pertinent history of COPD not on home oxygen, mood disorder, hypothyroidism, gastroesophageal reflux disease who presents to the emergency department for evaluation of dyspnea, fever and cough, Flu/RSV/Sars negaitive-admitted for Acute hypoxemic respiratory failure and sepsis due to pneumonia leading to acute exacerbation of COPD-went ot icu for acute hypoxic respiratory failure d/t multifocal PNA, and likely fluid overload-treated with cpap,high flow ,antibiotics -transfer to the floor patient is still on high-flow and antibiotics. Acute hypoxemic respiratory failure-multifactorial(COPD, pneumonia,question fluid overload) ct chest-multifocal bilateral ground-glass infiltrates venous dupplex lower ext and v/q scan negative patient received -on neb,levaquin ,also received lasix drip echo-seem ef 70% diursed i/o:6.5 liter negative continue nebs,antibiotics,high flow slowly tapering ,off lasix drip . Multifocal PNA as cause of resp failure, copd exacer Continue IV levaquin,follow cultures COPD exacerbation-bronchodilators by [facility] Pulmonology following Hypothyroidism- On Synthroid once confirmed Gastroesophageal reflux disease: continue PPI Mood disorder: Continue home mood stabilizers . she required precedix drip in icu for anxiety psych eval for severe anxiety-ativan 0.5 mg bid added as per psych. DVT prophylaxis: Lovenox need for inpatient: Acut hypoxic resp failure on Hiflow, multifocal PNA on IV Abx, IV steroid for copd--this can not be done on outpatient basis Quality Stroke Does the patient have a stroke diagnosis?: No VTE Prior VTE?: No VTE Risk Level:: Medical - moderate - high VTE Device Contraindication: Treatment Not Indicated VTE Drug Contraindication: N/A - Med Ordered
[2023-05-23] MEDS: Ketorolac Tromethamine 15 MG/ML VIAL IVPUSH (23:06)
[2023-05-24 04:00] VITALS: BP 109/54; PULSE 71; RESP 18; TEMP 36.1; O2SAT 97
[2023-05-24] MEDS: Throat Lozenge, Medicated LOZENGE 1 LOZENGE MUCOUS MEM ×4 (05:00→15:31)
[2023-05-24] MEDS: 0.9 % Sodium Chloride Flush 3 ML SYRINGE IVFLUSH ×4 (05:05→21:21)
[2023-05-24 06:00] VITALS: BMI 39.8
[2023-05-24] MEDS: Enoxaparin Sodium 40 MG/0.4 ML SYRINGE SUBCUT (06:06)
[2023-05-24] MEDS: Levothyroxine Sodium 112 MCG, Levothyroxine Sodium 25 MCG 137 MCG PO (06:06)
[2023-05-24 07:16] VITALS: BP 106/57; PULSE 71; RESP 17; TEMP 36.2; O2SAT 100
[2023-05-24] MEDS: Tiotropium Bromide 2.5 mcg 1 PUFF/2.5 MCG MIST.INHAL INHALE (07:41)
[2023-05-24 07:42] VITALS: PULSE 72; RESP 17; O2SAT 99
[2023-05-24] MEDS: Lidocaine 4 % Patch ADH..PATCH 1 PATCH TRANSDERMA (08:12)
[2023-05-24] MEDS: DULoxetine HCl 60 MG CAPSULE.DR PO (08:13)
[2023-05-24] MEDS: Gabapentin 400 MG CAPSULE 800 MG PO (08:13)
[2023-05-24] MEDS: Benzonatate 100 MG CAPSULE 200 MG PO ×3 (08:13→21:20)
[2023-05-24] MEDS: LORazepam 0.5 MG TABLET PO ×2 (08:13→15:31)
[2023-05-24] MEDS: Acetaminophen 325 MG TABLET 650 MG PO ×3 (08:13→21:21)
[2023-05-24 11:45] VITALS: BP 103/55; PULSE 75; RESP 16; TEMP 37.1; O2SAT 97
[2023-05-24] MEDS: Calcium Carbonate 750 MG TAB.CHEW 1500 MG PO (11:45)
[2023-05-24] MEDS: Morphine Sulfate 2 MG/ML CARTRIDGE IVPUSH ×2 (11:45→21:20)
[2023-05-24] MEDS: levoFLOXacin/D5W 750 MG/150 ML PIGGYBACK 100 MG IV (11:45)
[2023-05-24] MEDS: ondansetron HCL 4 MG/2 ML VIAL IVPUSH ×2 (13:29→21:20)
[2023-05-24 15:31] VITALS: BP 96/53; PULSE 73; RESP 16; TEMP 36.3; O2SAT 96
[2023-05-24] MEDS: Omeprazole 20 MG CAPSULE.DR PO (15:31)
--- NOTE | 2023-05-24 15:46 | P.PNIM_ITS ---
Subjective Subjective Date of Service: 05/24/23 Interval History: pneumonia Review of Systems nausea /vomiting sob improving anxious Physical Exam 2 Vital Signs: Vital Signs: Last Vital Signs Temp 97.4 F 05/24/23 15:31 Pulse 73 05/24/23 15:31 Resp 16 05/24/23 15:31 BP 96/53 L 05/24/23 15:31 Pulse Ox 96 05/24/23 15:31 O2 Del Method Nasal Cannula 05/24/23 15:31 O2 Flow Rate 5 05/24/23 04:00 FiO2 60 05/23/23 03:56 BMI result Body Mass Index 39.8 Appearance: Alert.? Oriented X3.? ?. cvs: rrr, [id number] , no murmur res: air entry somewhat improving but still diminshed at bases. abd: no rebound or guarding ,nt, bs present. ext pulses present , no cyanosis. neuro: axo3 , nonfocal. Objective Data Active Medications Acetaminophen (Acetaminophen 325 Mg Tablet) 650 mg PO Q6H PRN PRN Reason: Pain, Mild (Pain Scale 1-3) Last Admin: 05/24/23 15:30 Dose: 650 mg Documented By: ABDULAZIZ Albuterol Sulfate (Albuterol Sulfate (0.083%) 2.5 Mg/3 Ml Vial.Aden) 2.5 mg INHALE Q4H PRN PRN Reason: Shortness of Breath/Wheezing Last Admin: 05/21/23 20:07 Dose: 2.5 mg Documented By: TOÑITO Benzocaine (Throat Lozenge, Medicated Lozenge) 1 lozenge MUCOUS MEM Q2H PRN PRN Reason: Sore Throat Last Admin: 05/24/23 15:31 Dose: 1 lozenge Documented By: ABDULAZIZ Benzonatate (Benzonatate 100 Mg Capsule) 200 mg PO TID PRN PRN Reason: Cough Last Admin: 05/24/23 15:31 Dose: 200 mg Documented By: ABDULAZIZ Duloxetine HCl (Duloxetine Hcl 60 Mg Capsule.) 60 mg PO DAILY [facility] Last Admin: 05/24/23 08:13 Dose: 60 mg Documented By: ABDULAZIZ Enoxaparin Sodium (Enoxaparin Sodium 40 Mg/0.4 Ml Syringe) 40 mg SUBCUT Q24H [facility] Last Admin: 05/24/23 06:06 Dose: 40 mg Documented By: TORIBIO Gabapentin (Gabapentin 400 Mg Capsule) 800 mg PO DAILY [facility] Last Admin: 05/24/23 08:13 Dose: 800 mg Documented By: ABDULAZIZ Levofloxacin (Levaquin) 750 mg in 150 mls @ 100 mls/hr IV Q24H [facility] Last Infusion: 05/24/23 13:26 Dose: Infused Documented By: ABDULAZIZ Levothyroxine Sodium 112 mcg/ (Levothyroxine Sodium 25 mcg) 137 mcg PO DAILY@0600 [facility] Last Admin: 05/24/23 06:06 Dose: 137 mcg Documented By: TORIBIO Lidocaine (Lidocaine 4 % Patch Adh..Patch) 1 patch TRANSDERMA DAILY [facility]; Protocol Last Admin: 05/24/23 08:12 Dose: 1 patch Documented By: ABDULAZIZ Lorazepam (Lorazepam 0.5 Mg Tablet) 0.5 mg PO Q6H PRN PRN Reason: Anxiety Last Admin: 05/24/23 08:13 Dose: 0.5 mg Documented By: ABDULAZIZ Melatonin (Melatonin 3 Mg Tablet) 6 mg PO BEDTIME PRN PRN Reason: Insomnia Last Admin: 05/21/23 21:17 Dose: 6 mg Documented By: HERB Morphine Sulfate (Morphine Sulfate 2 Mg/Ml Cartridge) 2 mg IVPUSH Q6H PRN; Protocol PRN Reason: Pain, Severe (Pain Scale 7-10) Last Admin: 05/24/23 11:45 Dose: 2 mg Documented By: ABDULAZIZ Omeprazole (Omeprazole 20 Mg Capsule.Dr) 20 mg PO BID@0630,1630 [facility] Last Admin: 05/24/23 15:31 Dose: 20 mg Documented By: ABDULAZIZ Ondansetron HCl (Ondansetron Hcl 4 Mg/2 Ml Vial) 4 mg IVPUSH Q8H PRN PRN Reason: Nausea and Vomiting Last Admin: 05/24/23 13:29 Dose: 4 mg Documented By: ABDULAZIZ Sodium Chloride (0.9 % Sodium Chloride Flush 3 Ml Syringe) 3 ml IVFLUSH QSHIFT [facility] Last Admin: 05/24/23 15:31 Dose: 3 ml Documented By: ABDULAZIZ Tiotropium [place] (Tiotropium [place] 2.5 Mcg 1 Puff/2.5 Mcg Mist.Inhal) 1 puff INHALE RDAILY [facility] Last Admin: 05/24/23 07:41 Dose: 1 puff Documented By: SAMRA Trazodone HCl (Trazodone Hcl 50 Mg Tablet) 50 mg PO BEDTIME [facility] Last Admin: 05/23/23 22:53 Dose: Not Given Documented By: GERALDINE Non-Admin Reason: Nausea Labs 05/22/23 07:06 05/22/23 07:06 Assessment and Plan (1) Acute respiratory distress: Status: Acute (2) Bilateral pneumonia: Status: Acute (3) Nausea & vomiting: Status: Acute Plan 52 year old female with pertinent history of COPD not on home oxygen, mood disorder, hypothyroidism, gastroesophageal reflux disease who presents to the emergency department for evaluation of dyspnea, fever and cough, Flu/RSV/Sars negaitive-admitted for Acute hypoxemic respiratory failure and sepsis due to pneumonia leading to acute exacerbation of COPD-went ot icu for acute hypoxic respiratory failure d/t multifocal PNA, and likely fluid overload-treated with cpap,high flow ,antibiotics -transfer to the floor patient is still on high-flow and antibiotics. Nausea/vomiting with burning sensation has hx of gerd no abd pain ,passing bm's added antiemtics, ppi,famotidine dose moniter Acute hypoxemic respiratory failure-multifactorial(COPD, pneumonia,question fluid overload) ct chest-multifocal bilateral ground-glass infiltrates venous dupplex lower ext and v/q scan negative patient received -on neb,levaquin ,also received lasix drip echo-seem ef 70% diursed i/o:6.5 liter negative continue nebs,antibiotics,high flow slowly tapering ,off lasix drip . Multifocal PNA as cause of resp failure, copd exacer Continue IV levaquin,follow cultures COPD exacerbation-bronchodilators by [facility] Pulmonology following Hypothyroidism- On Synthroid once confirmed Gastroesophageal reflux disease: continue PPI Mood disorder: Continue home mood stabilizers . she required precedix drip in icu for anxiety psych eval for severe anxiety-ativan 0.5 mg bid added as per psych. DVT prophylaxis: Lovenox need for inpatient: Acut hypoxic resp failure on Hiflow, multifocal PNA on IV Abx, IV steroid for copd--this can not be done on outpatient basis Quality Stroke Does the patient have a stroke diagnosis?: No VTE Prior VTE?: No VTE Risk Level:: Medical - moderate - high VTE Device Contraindication: Treatment Not Indicated VTE Drug Contraindication: N/A - Med Ordered
[2023-05-24] MEDS: Pantoprazole Sodium 40 MG/10 ML VIAL IVPUSH (16:10)
[2023-05-24] MEDS: Famotidine/PF 20 MG/2 ML VIAL IVPUSH (16:10)
[2023-05-24 19:49] VITALS: BP 105/61; PULSE 66; RESP 16; TEMP 36.6; O2SAT 98
[2023-05-24] MEDS: Mag&Al/Sim/Diphenhyd/Lidocaine 10 ML ORAL.SUSP PO (21:20)
[2023-05-24] MEDS: Melatonin 3 MG TABLET 6 MG PO (21:20)
[2023-05-24] MEDS: traZODone HCL 50 MG TABLET PO (21:20)
[2023-05-25] VITALS (11 sets, daily range): BP systolic 84–118; BP diastolic 50–63; PULSE 61–89; RESP 20–22; TEMP 35.8–36.6; O2SAT 85–97; BMI 40.0
[2023-05-25] MEDS: Morphine Sulfate 2 MG/ML CARTRIDGE IVPUSH ×3 (04:05→20:20)
[2023-05-25] MEDS: Levothyroxine Sodium 112 MCG, Levothyroxine Sodium 25 MCG 137 MCG PO (04:05)
[2023-05-25] MEDS: Acetaminophen 325 MG TABLET 650 MG PO ×3 (04:06→17:09)
[2023-05-25] MEDS: Enoxaparin Sodium 40 MG/0.4 ML SYRINGE SUBCUT (04:07)
[2023-05-25] MEDS: Mag&Al/Sim/Diphenhyd/Lidocaine 10 ML ORAL.SUSP PO ×5 (04:07→21:23)
[2023-05-25] MEDS: Pantoprazole Sodium 40 MG/10 ML VIAL IVPUSH ×2 (04:11→17:08)
[2023-05-25] MEDS: Tiotropium Bromide 2.5 mcg 1 PUFF/2.5 MCG MIST.INHAL INHALE (07:27)
[2023-05-25] MEDS: Lidocaine 4 % Patch ADH..PATCH 1 PATCH TRANSDERMA (08:33)
[2023-05-25] MEDS: Benzonatate 100 MG CAPSULE 200 MG PO ×2 (08:34→17:08)
[2023-05-25] MEDS: Throat Lozenge, Medicated LOZENGE 1 LOZENGE MUCOUS MEM ×4 (08:34→17:09)
[2023-05-25] MEDS: DULoxetine HCl 60 MG CAPSULE.DR PO (08:34)
[2023-05-25] MEDS: LORazepam 0.5 MG TABLET PO ×2 (08:34→17:09)
[2023-05-25] MEDS: 0.9 % Sodium Chloride Flush 3 ML SYRINGE IVFLUSH ×3 (08:35→20:28)
[2023-05-25] MEDS: Gabapentin 400 MG CAPSULE 800 MG PO (08:35)
[2023-05-25] MEDS: ondansetron HCL 4 MG/2 ML VIAL IVPUSH (08:35)
[2023-05-25] MEDS: levoFLOXacin/D5W 750 MG/150 ML PIGGYBACK 100 MG IV (10:51)
--- NOTE | 2023-05-25 14:19 | P.PNIM_ITS ---
Subjective Subjective Date of Service: 05/25/23 Interval History: pneumonia,gerd Review of Systems sob seems slowly improving ,taper oxygen nausea /vomiting improved Physical Exam 2 Vital Signs: Vital Signs: Last Vital Signs Temp 97.0 F 05/25/23 11:49 Pulse 78 05/25/23 11:49 Resp 22 H 05/25/23 11:49 BP 99/55 L 05/25/23 11:49 Pulse Ox 94 05/25/23 11:49 O2 Del Method Nasal Cannula 05/25/23 11:49 O2 Flow Rate 4 05/25/23 11:49 FiO2 60 05/23/23 03:56 BMI result Body Mass Index 40.0 Appearance: Alert.? Oriented X3.? ?. cvs: rrr, [id number] , no murmur res: air entry somewhat improving but still diminshed at bases. abd: no rebound or guarding ,nt, bs present. ext pulses present , no cyanosis. neuro: axo3 , nonfocal. Objective Data Active Medications Acetaminophen (Acetaminophen 325 Mg Tablet) 650 mg PO Q6H PRN PRN Reason: Pain, Mild (Pain Scale 1-3) Last Admin: 05/25/23 10:50 Dose: 650 mg Documented By: ABDULAZIZ Benzocaine (Throat Lozenge, Medicated Lozenge) 1 lozenge MUCOUS MEM Q2H PRN PRN Reason: Sore Throat Last Admin: 05/25/23 12:43 Dose: 1 lozenge Documented By: ABDULAZIZ Benzonatate (Benzonatate 100 Mg Capsule) 200 mg PO TID PRN PRN Reason: Cough Last Admin: 05/25/23 08:34 Dose: 200 mg Documented By: SIXTO Duloxetine HCl (Duloxetine Hcl 60 Mg Capsule.Dr) 60 mg PO DAILY [facility] Last Admin: 05/25/23 08:34 Dose: 60 mg Documented By: SIXTO Enoxaparin Sodium (Enoxaparin Sodium 40 Mg/0.4 Ml Syringe) 40 mg SUBCUT Q24H [facility] Last Admin: 05/25/23 04:07 Dose: 40 mg Documented By: LOUISA-DAVID Gabapentin (Gabapentin 400 Mg Capsule) 800 mg PO DAILY [facility] Last Admin: 05/25/23 08:35 Dose: 800 mg Documented By: SIXTO Levofloxacin (Levaquin) 750 mg in 150 mls @ 100 mls/hr IV Q24H [facility] Last Infusion: 05/25/23 12:23 Dose: Infused Documented By: ABDULAZIZ Promethazine HCl 6.25 mg/ (Sodium Chloride) 50.25 mls @ 201 mls/hr IV Q6H PRN PRN Reason: Nausea and Vomiting Levothyroxine Sodium 112 mcg/ (Levothyroxine Sodium 25 mcg) 137 mcg PO DAILY@0600 [facility] Last Admin: 05/25/23 04:05 Dose: 137 mcg Documented By: JACINTO Lidocaine (Lidocaine 4 % Patch Adh..Patch) 1 patch TRANSDERMA DAILY [facility]; Protocol Last Admin: 05/25/23 08:33 Dose: 1 patch Documented By: SIXTO Lidocaine/Diphenhydr/Alum/Mg/Simeth (Mag&Al/Sim/Diphenhyd/Lidocaine 10 Ml Oral.Susp) 10 ml PO Q4H PRN; Protocol PRN Reason: Mouth Sore Pain Last Admin: 05/25/23 12:42 Dose: 10 ml Documented By: ABDULAZIZ Lorazepam (Lorazepam 0.5 Mg Tablet) 0.5 mg PO Q6H PRN PRN Reason: Anxiety Last Admin: 05/25/23 08:34 Dose: 0.5 mg Documented By: SIXTO Melatonin (Melatonin 3 Mg Tablet) 6 mg PO BEDTIME PRN PRN Reason: Insomnia Last Admin: 05/24/23 21:20 Dose: 6 mg Documented By: JACINTO Morphine Sulfate (Morphine Sulfate 2 Mg/Ml Cartridge) 2 mg IVPUSH Q6H PRN; Protocol PRN Reason: Pain, Severe (Pain Scale 7-10) Last Admin: 05/25/23 12:43 Dose: 2 mg Documented By: ABDULAZIZ Ondansetron HCl (Ondansetron Hcl 4 Mg/2 Ml Vial) 4 mg IVPUSH Q8H PRN PRN Reason: Nausea and Vomiting Last Admin: 05/25/23 08:35 Dose: 4 mg Documented By: SIXTO Pantoprazole Sodium (Pantoprazole Sodium 40 Mg/10 Ml Vial) 40 mg IVPUSH BID@0630,1630 [facility] Last Admin: 05/25/23 04:11 Dose: 40 mg Documented By: JACINTO Sodium Chloride (0.9 % Sodium Chloride Flush 3 Ml Syringe) 3 ml IVFLUSH QSHIFT [facility] Last Admin: 05/25/23 08:35 Dose: 3 ml Documented By: SIXTO Tiotropium [place] (Tiotropium [place] 2.5 Mcg 1 Puff/2.5 Mcg Mist.Inhal) 1 puff INHALE RDAILY [facility] Last Admin: 05/25/23 07:27 Dose: 1 puff Documented By: SAMRA Trazodone HCl (Trazodone Hcl 50 Mg Tablet) 50 mg PO BEDTIME [facility] Last Admin: 05/24/23 21:20 Dose: 50 mg Documented By: JACINTO Labs 05/22/23 07:06 05/22/23 07:06 Assessment and Plan (1) Acute respiratory distress: Status: Acute (2) Bilateral pneumonia: Status: Acute (3) Nausea & vomiting: Status: Acute Plan 52 year old female with pertinent history of COPD not on home oxygen, mood disorder, hypothyroidism, gastroesophageal reflux disease who presents to the emergency department for evaluation of dyspnea, fever and cough, Flu/RSV/Sars negaitive-admitted for Acute hypoxemic respiratory failure and sepsis due to pneumonia leading to acute exacerbation of COPD-went ot icu for acute hypoxic respiratory failure d/t multifocal PNA, and likely fluid overload-treated with cpap,high flow ,antibiotics -transfer to the floor patient is still on high-flow and antibiotics. Nausea/vomiting with burning sensation possible sec gerd improved change ppi po, antiemtics prn Acute hypoxemic respiratory failure-multifactorial(COPD, pneumonia,question fluid overload) ct chest-multifocal bilateral ground-glass infiltrates venous dupplex lower ext and v/q scan negative patient received -on neb,levaquin ,also received lasix drip echo-seem ef 70% diursed i/o:6.5 liter negative continue nebs,antibiotics,high flow slowly tapering ,off lasix drip . Multifocal PNA as cause of resp failure, copd exacer Continue IV levaquin,follow cultures COPD exacerbation-bronchodilators by [facility] Pulmonology following Hypothyroidism- On Synthroid once confirmed Gastroesophageal reflux disease: continue PPI Mood disorder: Continue home mood stabilizers . she required precedix drip in icu for anxiety psych eval for severe anxiety-ativan 0.5 mg bid added as per psych. DVT prophylaxis: Lovenox need for inpatient: Acut hypoxic resp failure on Hiflow, multifocal PNA on IV Abx, IV steroid for copd--this can not be done on outpatient basis Quality Stroke Does the patient have a stroke diagnosis?: No VTE Prior VTE?: No VTE Risk Level:: Medical - moderate - high VTE Device Contraindication: Treatment Not Indicated VTE Drug Contraindication: N/A - Med Ordered
--- NOTE | 2023-05-25 14:48 | MHC.CM.PN ---
Per MD rounds no dc today. Patient is in the process of being weaned from Oxygen. She requires IV ABX and IV steroids per MD. DP Home with NA and family transport home.
[2023-05-25] MEDS: traZODone HCL 50 MG TABLET PO (20:20)
[2023-05-25] MEDS: Melatonin 3 MG TABLET 6 MG PO (20:20)
[2023-05-26] VITALS (7 sets, daily range): BP systolic 88–108; BP diastolic 52–60; PULSE 65–80; RESP 20; TEMP 35.8–36.4; O2SAT 96–99; BMI 40.2
[2023-05-26] MEDS: Morphine Sulfate 2 MG/ML CARTRIDGE IVPUSH (05:23)
[2023-05-26] MEDS: Benzonatate 100 MG CAPSULE 200 MG PO ×2 (05:23→20:24)
[2023-05-26] MEDS: Levothyroxine Sodium 112 MCG, Levothyroxine Sodium 25 MCG 137 MCG PO (05:23)
[2023-05-26] MEDS: Enoxaparin Sodium 40 MG/0.4 ML SYRINGE SUBCUT (05:25)
[2023-05-26] MEDS: Pantoprazole Sodium 40 MG/10 ML VIAL IVPUSH (05:25)
[2023-05-26] MEDS: Throat Lozenge, Medicated LOZENGE 1 LOZENGE MUCOUS MEM (05:33)
[2023-05-26] MEDS: ondansetron HCL 4 MG/2 ML VIAL IVPUSH (05:35)
[2023-05-26] MEDS: Tiotropium Bromide 2.5 mcg 1 PUFF/2.5 MCG MIST.INHAL INHALE (08:17)
[2023-05-26] MEDS: 0.9 % Sodium Chloride Flush 3 ML SYRINGE IVFLUSH (09:01)
[2023-05-26] MEDS: DULoxetine HCl 60 MG CAPSULE.DR PO (09:02)
[2023-05-26] MEDS: Gabapentin 400 MG CAPSULE 800 MG PO (09:02)
[2023-05-26] MEDS: Omeprazole 20 MG CAPSULE.DR PO (09:02)
[2023-05-26] MEDS: Lidocaine 4 % Patch ADH..PATCH 1 PATCH TRANSDERMA (09:03)
[2023-05-26] MEDS: Mag&Al/Sim/Diphenhyd/Lidocaine 10 ML ORAL.SUSP PO ×2 (09:08→20:24)
[2023-05-26] MEDS: levoFLOXacin/D5W 750 MG/150 ML PIGGYBACK 100 MG IV (12:09)
--- NOTE | 2023-05-26 15:51 | HO.PM.IMPN ---
Subjective Subjective Date of Service: 05/26/23 Interval History: pneumonia,gerd Review of Systems sob seems slowly improving ,taper oxygen nausea /vomiting improved Physical Exam Vital Signs: Vital Signs: Last Vital Signs Temp 05/26/23 15:06 Pulse 76 05/26/23 15:06 Resp 20 05/26/23 15:06 BP 96/58 05/26/23 15:06 Pulse Ox 98 05/26/23 15:06 O2 Del Method Room Air 05/26/23 15:06 O2 Flow Rate 4 05/26/23 11:31 FiO2 60 05/23/23 03:56 BMI result Body Mass Index 40.2 Appearance: Alert.? Oriented X3.? ?. cvs: rrr, [id number] , no murmur res: air entry somewhat improving but still diminshed at bases. abd: no rebound or guarding ,nt, bs present. ext pulses present , no cyanosis. neuro: axo3 , nonfocal. Objective Data Active Medications Acetaminophen (Acetaminophen 325 Mg Tablet) 650 mg PO Q6H PRN PRN Reason: Pain, Mild (Pain Scale 1-3) Last Admin: 05/25/23 17:09 Dose: 650 mg Documented By: ABDULAZIZ Benzocaine (Throat Lozenge, Medicated Lozenge) 1 lozenge MUCOUS MEM Q2H PRN PRN Reason: Sore Throat Last Admin: 05/26/23 05:33 Dose: 1 lozenge Documented By: MARSHA Benzonatate (Benzonatate 100 Mg Capsule) 200 mg PO TID PRN PRN Reason: Cough Last Admin: 05/26/23 05:23 Dose: 200 mg Documented By: MARSHA Duloxetine HCl (Duloxetine Hcl 60 Mg Capsule.Dr) 60 mg PO DAILY [facility] Last Admin: 05/26/23 09:02 Dose: 60 mg Documented By: ELOISEMOERVIN Enoxaparin Sodium (Enoxaparin Sodium 40 Mg/0.4 Ml Syringe) 40 mg SUBCUT Q24H [facility] Last Admin: 05/26/23 05:25 Dose: 40 mg Documented By: MARSHA Gabapentin (Gabapentin 400 Mg Capsule) 800 mg PO DAILY [facility] Last Admin: 05/26/23 09:02 Dose: 800 mg Documented By: AIDA Levofloxacin (Levaquin) 750 mg in 150 mls @ 100 mls/hr IV Q24H [facility] Last Infusion: 05/26/23 13:39 Dose: Infused Documented By: ELOISEMOERVIN Levothyroxine Sodium 112 mcg/ (Levothyroxine Sodium 25 mcg) 137 mcg PO DAILY@0600 [facility] Last Admin: 05/26/23 05:23 Dose: 137 mcg Documented By: MARSHA Lidocaine (Lidocaine 4 % Patch Adh..Patch) 1 patch TRANSDERMA DAILY [facility]; Protocol Last Admin: 05/26/23 09:03 Dose: 1 patch Documented By: AIDA Lidocaine/Diphenhydr/Alum/Mg/Simeth (Mag&Al/Sim/Diphenhyd/Lidocaine 10 Ml Oral.Susp) 10 ml PO Q4H PRN; Protocol PRN Reason: Mouth Sore Pain Last Admin: 05/26/23 09:08 Dose: 10 ml Documented By: AIDA Lorazepam (Lorazepam 0.5 Mg Tablet) 0.5 mg PO Q6H PRN PRN Reason: Anxiety Last Admin: 05/25/23 17:09 Dose: 0.5 mg Documented By: ABDULAZIZ Melatonin (Melatonin 3 Mg Tablet) 6 mg PO BEDTIME PRN PRN Reason: Insomnia Last Admin: 05/25/23 20:20 Dose: 6 mg Documented By: MARSHA Morphine Sulfate (Morphine Sulfate 2 Mg/Ml Cartridge) 1 mg IVPUSH Q6H PRN; Protocol PRN Reason: Pain, Severe (Pain Scale 7-10) Omeprazole (Omeprazole 20 Mg Capsule.Dr) 20 mg PO DAILY@0630 [facility] Last Admin: 05/26/23 09:02 Dose: 20 mg Documented By: AIDA Ondansetron HCl (Ondansetron Hcl 4 Mg/2 Ml Vial) 4 mg IVPUSH Q8H PRN PRN Reason: Nausea and Vomiting Last Admin: 05/26/23 05:35 Dose: 4 mg Documented By: MARSHA Promethazine HCl (Promethazine Hcl 25 Mg Tablet) 25 mg PO Q6H PRN PRN Reason: Nausea and Vomiting Sodium Chloride (0.9 % Sodium Chloride Flush 3 Ml Syringe) 3 ml IVFLUSH QSHIFT [facility] Last Admin: 05/26/23 09:01 Dose: 3 ml Documented By: HO.PODMORP Tiotropium [place] (Tiotropium [place] 2.5 Mcg 1 Puff/2.5 Mcg Mist.Inhal) 1 puff INHALE RDAILY [facility] Last Admin: 05/26/23 08:17 Dose: 1 puff Documented By: CHRIST Trazodone HCl (Trazodone Hcl 50 Mg Tablet) 50 mg PO BEDTIME [facility] Last Admin: 05/25/23 20:20 Dose: 50 mg Documented By: ARIELS Labs 05/22/23 07:06 05/22/23 07:06 Assessment and Plan (1) Bilateral pneumonia: Status: Acute (2) Acute respiratory distress: Status: Acute Plan 52 year old female with pertinent history of COPD not on home oxygen, mood disorder, hypothyroidism, gastroesophageal reflux disease who presents to the emergency department for evaluation of dyspnea, fever and cough, Flu/RSV/Sars negaitive-admitted for Acute hypoxemic respiratory failure and sepsis due to pneumonia leading to acute exacerbation of COPD-went ot icu for acute hypoxic respiratory failure d/t multifocal PNA, and likely fluid overload-treated with cpap,high flow ,antibiotics -transfer to the floor patient is still on high-flow and antibiotics. Nausea/vomiting with burning sensation possible sec gerd improved change ppi po, antiemtics prn Acute hypoxemic respiratory failure-multifactorial(COPD, pneumonia,question fluid overload) ct chest-multifocal bilateral ground-glass infiltrates venous dupplex lower ext and v/q scan negative patient received -on neb,levaquin ,also received lasix drip echo-seem ef 70% diursed well continue nebs,antibiotics,high flow slowly tapering ,off lasix drip . Multifocal PNA as cause of resp failure, copd exacer Continue IV levaquin,follow cultures COPD exacerbation-bronchodilators by [facility] Pulmonology following Hypothyroidism- On Synthroid once confirmed Gastroesophageal reflux disease: continue PPI Mood disorder: Continue home mood stabilizers . she required precedix drip in icu for anxiety psych eval for severe anxiety-ativan 0.5 mg bid added as per psych. DVT prophylaxis: Lovenox need for inpatient: Acut hypoxic resp failure on Hiflow, multifocal PNA on IV Abx, IV steroid for copd--this can not be done on outpatient basis Quality Stroke Does the patient have a stroke diagnosis?: No VTE Prior VTE?: No VTE Risk Level:: Medical - moderate - high VTE Device Contraindication: Treatment Not Indicated VTE Drug Contraindication: N/A - Med Ordered
[2023-05-26] MEDS: Ketorolac Tromethamine 15 MG/ML VIAL IVPUSH (19:47)
[2023-05-26] MEDS: traZODone HCL 50 MG TABLET PO (20:24)
[2023-05-27] VITALS (9 sets, daily range): BP systolic 74–120; BP diastolic 40–60; PULSE 58–77; RESP 18–20; TEMP 35.8–37.2; O2SAT 97–99; BMI 40.3
[2023-05-27] MEDS: Omeprazole 20 MG CAPSULE.DR PO (05:40)
[2023-05-27] MEDS: Enoxaparin Sodium 40 MG/0.4 ML SYRINGE SUBCUT (05:40)
[2023-05-27] MEDS: Levothyroxine Sodium 112 MCG, Levothyroxine Sodium 25 MCG 137 MCG PO (05:40)
[2023-05-27] MEDS: Tiotropium Bromide 2.5 mcg 1 PUFF/2.5 MCG MIST.INHAL INHALE (08:07)
[2023-05-27] MEDS: Lidocaine 4 % Patch ADH..PATCH 1 PATCH TRANSDERMA (09:24)
[2023-05-27] MEDS: 0.9 % Sodium Chloride Flush 3 ML SYRINGE IVFLUSH ×4 (09:24→19:51)
[2023-05-27] MEDS: levoFLOXacin/D5W 750 MG/150 ML PIGGYBACK 100 MG IV (09:24)
[2023-05-27] MEDS: DULoxetine HCl 60 MG CAPSULE.DR PO (09:25)
[2023-05-27] MEDS: Gabapentin 400 MG CAPSULE 800 MG PO (09:25)
[2023-05-27] MEDS: Morphine Sulfate 2 MG/ML CARTRIDGE 1 MG IVPUSH (09:37)
[2023-05-27] MEDS: ondansetron HCL 4 MG/2 ML VIAL IVPUSH ×2 (09:44→20:54)
--- NOTE | 2023-05-27 14:14 | P.PNIM_ITS ---
Subjective Subjective Date of Service: 05/27/23 Interval History: pneumonia,gerd Review of Systems sob seems slowly improving ,taper oxygen no fevers cough improving Physical Exam 2 Vital Signs: Vital Signs: Last Vital Signs Temp 97.9 F 05/27/23 10:53 Pulse 69 05/27/23 10:53 Resp 18 05/27/23 10:53 BP 92/55 L 05/27/23 10:53 Pulse Ox 98 05/27/23 10:53 O2 Del Method Nasal Cannula 05/27/23 10:53 O2 Flow Rate 4 05/27/23 10:53 FiO2 60 05/23/23 03:56 BMI result Body Mass Index 40.3 Appearance: Alert.? Oriented X3.? cvs: rrr, [id number] . res: air entry somewhat improving but still diminshed at bases. abd: no rebound or guarding ,nt, bs present. ext pulses present , no cyanosis. neuro: axo3 , nonfocal. Objective Data Active Medications Acetaminophen (Acetaminophen 325 Mg Tablet) 650 mg PO Q6H PRN PRN Reason: Pain, Mild (Pain Scale 1-3) Last Admin: 05/25/23 17:09 Dose: 650 mg Documented By: ABDULAZIZ Benzocaine (Throat Lozenge, Medicated Lozenge) 1 lozenge MUCOUS MEM Q2H PRN PRN Reason: Sore Throat Last Admin: 05/26/23 05:33 Dose: 1 lozenge Documented By: MARSHA Benzonatate (Benzonatate 100 Mg Capsule) 200 mg PO TID PRN PRN Reason: Cough Last Admin: 05/26/23 20:24 Dose: 200 mg Documented By: GENEVIEVE Duloxetine HCl (Duloxetine Hcl 60 Mg Capsule.) 60 mg PO DAILY [facility] Last Admin: 05/27/23 09:25 Dose: 60 mg Documented By: MARIA EUGENIA Enoxaparin Sodium (Enoxaparin Sodium 40 Mg/0.4 Ml Syringe) 40 mg SUBCUT Q24H [facility] Last Admin: 05/27/23 05:40 Dose: 40 mg Documented By: GENEVIEVE Gabapentin (Gabapentin 400 Mg Capsule) 800 mg PO DAILY [facility] Last Admin: 05/27/23 09:25 Dose: 800 mg Documented By: MARIA EUGENIA Levofloxacin (Levofloxacin 750 Mg Tablet) 750 mg PO Q24H REPLACED BY [facility] Stop: 05/30/23 09:01 Levothyroxine Sodium 112 mcg/ (Levothyroxine Sodium 25 mcg) 137 mcg PO DAILY@0600 [facility]PLAC[facility] Last Admin: 05/27/23 05:40 Dose: 137 mcg Documented By: GENEVIEVE Lidocaine (Lidocaine 4 % Patch Adh..Patch) 1 patch TRANSDERMA DAILY [facility]; Protocol Last Admin: 05/27/23 09:24 Dose: 1 patch Documented By: MARIA EUGENIA Lidocaine/Diphenhydr/Alum/Mg/Simeth (Mag&Al/Sim/Diphenhyd/Lidocaine 10 Ml Oral.Susp) 10 ml PO Q4H PRN; Protocol PRN Reason: Mouth Sore Pain Last Admin: 05/26/23 20:24 Dose: 10 ml Documented By: GENEVIEVE Lorazepam (Lorazepam 0.5 Mg Tablet) 0.5 mg PO Q6H PRN PRN Reason: Anxiety Last Admin: 05/25/23 17:09 Dose: 0.5 mg Documented By: ABDULAZIZ Melatonin (Melatonin 3 Mg Tablet) 6 mg PO BEDTIME PRN PRN Reason: Insomnia Last Admin: 05/25/23 20:20 Dose: 6 mg Documented By: MARSHA Morphine Sulfate (Morphine Sulfate 2 Mg/Ml Cartridge) 1 mg IVPUSH Q6H PRN; Protocol PRN Reason: Pain, Severe (Pain Scale 7-10) Last Admin: 05/27/23 09:37 Dose: 1 mg Documented By: MARIA EUGENIA Omeprazole (Omeprazole 20 Mg Capsule.Dr) 20 mg PO DAILY@0630 [facility] Last Admin: 05/27/23 05:40 Dose: 20 mg Documented By: GENEVIEVE Ondansetron HCl (Ondansetron Hcl 4 Mg/2 Ml Vial) 4 mg IVPUSH Q8H PRN PRN Reason: Nausea and Vomiting Last Admin: 05/27/23 09:44 Dose: 4 mg Documented By: MARIA EUGENIA Promethazine HCl (Promethazine Hcl 25 Mg Tablet) 25 mg PO Q6H PRN PRN Reason: Nausea and Vomiting Sodium Chloride (0.9 % Sodium Chloride Flush 3 Ml Syringe) 3 ml IVFLUSH [facility] Last Admin: 04/07/24 09:24 Dose: 3 ml Documented By: MARIA EUGENIA Tiotropium [place] (Tiotropium [place] 2.5 Mcg 1 Puff/2.5 Mcg Mist.Inhal) 1 puff INHALE RDAILY REPLACED BY [facility] Last Admin: 05/27/23 08:07 Dose: 1 puff Documented By: ROSEMARY Trazodone HCl (Trazodone Hcl 50 Mg Tablet) 50 mg PO BEDTIME REPLACED BY [facility] Last Admin: 05/26/23 20:24 Dose: 50 mg Documented By: GENEVIEVE Rodney 05/22/23 07:06 05/22/23 07:06 Assessment and Plan (1) Bilateral pneumonia: Status: Acute Plan 52 year old female with pertinent history of COPD not on home oxygen, mood disorder, hypothyroidism, gastroesophageal reflux disease who presents to the emergency department for evaluation of dyspnea, fever and cough, Flu/RSV/Sars negaitive-admitted for Acute hypoxemic respiratory failure and sepsis due to pneumonia leading to acute exacerbation of COPD-went ot icu for acute hypoxic respiratory failure d/t multifocal PNA, and likely fluid overload-treated with cpap,high flow ,antibiotics -transfer to the floor patient is still on high-flow and antibiotics. Nausea/vomiting with burning sensation possible sec gerd improved change ppi po, antiemtics prn Acute hypoxemic respiratory failure-multifactorial(COPD, pneumonia,question fluid overload) ct chest-multifocal bilateral ground-glass infiltrates venous dupplex lower ext and v/q scan negative patient received -on neb,levaquin ,also received lasix drip echo-seem ef 70% diursed well continue nebs,antibiotics,high flow slowly tapering ,off lasix drip . Multifocal PNA as cause of resp failure, copd exacer Continue IV levaquin,follow cultures COPD exacerbation-bronchodilators by [facility] Pulmonology following Hypothyroidism- On Synthroid once confirmed Gastroesophageal reflux disease: continue PPI Mood disorder: Continue home mood stabilizers . she required precedix drip in icu for anxiety psych eval for severe anxiety-ativan 0.5 mg bid added as per psych. DVT prophylaxis: Lovenox need for inpatient: Acut hypoxic resp failure on oxygen, multifocal PNA on IV Abx, IV steroid for copd--this can not be done on outpatient basis Quality Stroke Does the patient have a stroke diagnosis?: No VTE Prior VTE?: No VTE Risk Level:: Medical - moderate - high VTE Device Contraindication: Treatment Not Indicated VTE Drug Contraindication: N/A - Med Ordered
[2023-05-27] MEDS: Mag&Al/Sim/Diphenhyd/Lidocaine 10 ML ORAL.SUSP PO ×2 (15:22→19:50)
[2023-05-27 16:00] LABS: Red Cell Distribution Width 13.2 % (11.0-16.0); White Blood Count 6.9 X10*3/uL (4.8-10.8)
[2023-05-27 16:02] LABS: Hematocrit 35.7 % (37.0-47.0); Hemoglobin 11.6 g/dl (12.0-16.0); Mean Corpuscular HGB Conc 32.5 g/dl (31.0-35.0); Mean Corpuscular Volume 92.2 fL (80.0-98.0); Mean Platelet Volume 14.2 fL (9.4-12.3); Red Blood Count 3.87 X10*6/uL (4.20-5.50)
[2023-05-27 16:04] LABS: PLT ABN DIST 1; Platelet Count 99 X10*3/uL (160-400)
[2023-05-27 16:16] LABS: Anion Gap 11 (12-20); Blood Urea Nitrogen 11 mg/dL (9-16); Calcium 9.3 mg/dL (8.4-10.2); Carbon Dioxide 35 mmol/L (22-29); Chloride 98 mmol/L (96-108); Creatinine Clr Calc Pharmacy 87.9; Estimated Glomerular Filt Rate 58; Glucose Random 86 mg/dL (60-115); Potassium 3.9 mmol/L (3.3-5.1); Sodium 140 mmol/L (135-145)
[2023-05-27 16:53] LABS: Albumin Level 3.3 g/dL (3.5-5.0)
[2023-05-27] MEDS: Albumin Human 25 % 100 ML IV ×2 (18:46→20:52)
[2023-05-27] MEDS: Acetaminophen 325 MG TABLET 650 MG PO (19:50)
[2023-05-27] MEDS: Benzonatate 100 MG CAPSULE 200 MG PO (19:50)
[2023-05-27] MEDS: Melatonin 3 MG TABLET 6 MG PO (20:54)
[2023-05-27] MEDS: traZODone HCL 50 MG TABLET PO (20:59)
[2023-05-28 04:00] VITALS: BP 99/54; PULSE 62; RESP 20; TEMP 36.1; O2SAT 99
[2023-05-28] MEDS: Acetaminophen 325 MG TABLET 650 MG PO (05:40)
[2023-05-28] MEDS: Mag&Al/Sim/Diphenhyd/Lidocaine 10 ML ORAL.SUSP PO (05:40)
[2023-05-28] MEDS: Levothyroxine Sodium 112 MCG, Levothyroxine Sodium 25 MCG 137 MCG PO (05:40)
[2023-05-28] MEDS: Omeprazole 20 MG CAPSULE.DR PO (05:40)
[2023-05-28 06:00] VITALS: BMI 40.7
[2023-05-28 08:00] VITALS: BP 95/51; PULSE 60; RESP 20; TEMP 36.7; O2SAT 99
[2023-05-28] MEDS: Tiotropium Bromide 2.5 mcg 1 PUFF/2.5 MCG MIST.INHAL INHALE (08:00)
[2023-05-28 08:03] VITALS: PULSE 72; RESP 16; O2SAT 100
[2023-05-28] MEDS: Lidocaine 4 % Patch ADH..PATCH 1 PATCH TRANSDERMA (08:20)
[2023-05-28] MEDS: DULoxetine HCl 60 MG CAPSULE.DR PO (08:20)
[2023-05-28] MEDS: Gabapentin 400 MG CAPSULE 800 MG PO (08:20)
[2023-05-28] MEDS: Benzonatate 100 MG CAPSULE 200 MG PO (08:20)
[2023-05-28] MEDS: levoFLOXacin 750 MG TABLET PO (08:20)
[2023-05-28] MEDS: 0.9 % Sodium Chloride Flush 3 ML SYRINGE IVFLUSH (08:21)
--- NOTE | 2023-05-28 12:40 | MHC.CM.PN ---
Seocnd IMM 05/28/23, Pt will go home via private transport, she will resume her [employer] services, and have home care from [facility].
--- NOTE | 2023-05-28 13:22 | P.F2F_ITS ---
Service Date Service Date: 05/28/23 Encounter Date of encounter: 05/28/23 Reasons for Services Signs and symptoms assessed: pneumonia Reason for detention: CV/CP assess and/or care, medication management, medication treatment and teach disease management Reason for physical therapy: home safety and mobility, therapeutic exercises, restore joint function, gait/transfer training, assess need for DME, ADL training, energy conservation and other MD Overseeing Care: Zuri Fuchs Homebound: Leaving the home is medically contraindicated at this time without the asist of a device and/or another person due th the listed conditions above and below. Reason homebound: weakness related to hospital stay Homebound supporting statement: Patient with underlying COPD and pneumonia had prolonged hospital stay &generalized weak post hospitalization stay- stay need help to go to appointments, lab draw, PT. Certification: Based on the above findings, I certify that this patient is confined to the home and needs intermittent detention care, physical therapy and/or speech therapy, or continues to need occupational therapy. The patient is under my care, and I have initiated the establishment of the plan of care. The patient will be followed by a physician who will periodically review the plan of care. Time Spent With Patient Time: Total time managing care of this patient today ____ minutes.
--- NOTE | 2023-05-28 13:45 | P.DS_ITS ---
DS: Providers Provider Date of Service: 05/28/23 Date of admission: 05/17/23 05:50 Date of discharge: 05/28/23 Primary care physician: Zuri Fuchs MD Consults: 05/17/23 05:52 Consult to Pulmonology Routine Consulting Provider: [facility] [place], [place] Pulmonology Services Reason for consultation: Hypoxia due to pna. extensive bilateral groundglass opacities 05/22/23 14:36 Consult to Psychiatry Routine Consulting Provider: Psych Covering Reason for consultation: severe anxiety Has provider been notified: No Attending physician on discharge: Megan Dunaway Discharging clinician: Megan Dunaway DS: Diagnosis Discharge Diagnosis (1) Bilateral pneumonia: Status: Acute DS: Summary Hospital Course Hospital Course: 52 year old female with pertinent history of COPD not on home oxygen, mood disorder, hypothyroidism, gastroesophageal reflux disease who presents to the emergency department for evaluation of dyspnea, fever and cough. Patient states her symptoms started 2 days prior to presentation. Patient started having dyspnea which is worse with exertion. Also has been having intermittent productive cough. Endorses associated wheezing. States she took temperature at home and it was 101 degrees F. Admits nausea. Patient states she does have a history of recurrent pneumonia and is a former smoker. No chest discomfort, palpitations, orthopnea, PND, abdominal pain, changes in urinary or bowel habits. In the emergency department, patient was found to be septic. Imaging with bilateral ground-glass opacities. WBC found to be elevated. Hospital course: 52 year old female with pertinent history of COPD not on home oxygen, mood disorder, hypothyroidism, gastroesophageal reflux disease who presents to the em ergency department for evaluation of dyspnea, fever and cough, Flu/RSV/Sars negaitive-admitted for Acute hypoxemic respiratory failure and sepsis due to pneumonia leading to acute exacerbation of COPD-had leucocytosis ,cxr showed possible pneumonia -initially received IV antibiotics, steroids, nebs- went ot icu for acute hypoxic respiratory failure d/t multifocal PNA,and likely fluid overload-treated with cpap,high flow ,antibiotics -transfer to the floor patient is still on high-flow and antibiotics-subsequently transferred to the floor, received high-flow, Lasix drip, IV antibiotics, additional workup-imaging studies during this admission:patient dvt studies and v/q scan ok, echo-EF 70%, Normal right ventricular cavity size and systolic function. ct chest - Symmetric distribution of extensive bilateral groundglass opacities with relative sparing of the lung periphery: Patient shortness of breath improved significantly off oxygen and Lasix drip, continue home COPD medications and complete Levaquin for 2 more days. home oxygen evaluation done patient did not qualify for home oxygen. anxiety : added 0.5 mg ativan po dialy as needed (d/w psych),continue cymbalta -patient need to follow up with psych outpatient for further management . Pt recomended home with service /PT. plan: complete course of levofloxacin for 2 more days chest imaging in 2 weeks to see resolution of pneumonia . anxiety : added 0.5 mg ativan po dialy as needed (d/w psych),continue cymbalta -patient need to follow up with psych outpatient for further management . Above management discussed with the patient in detail length she understand in agreement with the plan, time spent 50 minute. Time Attestation Total time managing care of this patient today: 50 mintues. Discharge Coordination Time (in mins): 50 min Quality: Safe Use of Opioids Does Pt have an Active Cancer Diagnosis on the Problem List?: No Quality: Stroke Does the patient have a stroke diagnosis?: No Physical Exam Vital Signs: Vital Signs: Last Vital Signs Temp 98.1 F 05/28/23 08:00 Pulse 72 05/28/23 08:03 Resp 16 05/28/23 08:03 BP 95/51 L 05/28/23 08:00 Pulse Ox 99 05/28/23 08:00 O2 Del Method Nasal Cannula 05/28/23 08:00 O2 Flow Rate 2 05/28/23 08:00 FiO2 60 05/23/23 03:56 BMI result Body Mass Index 40.7 Appearance: Alert.? Oriented X3.? cvs: rrr, [id number] . res: air entry somewhat improving but still diminshed at bases. abd: no rebound or guarding ,nt, bs present. ext pulses present , no cyanosis. neuro: axo3 , nonfocal. DS: Data Data Completed and Pending Labs on day of discharge: Laboratory Results - last 24 hr 05/27/23 15:38 WBC 6.9 RBC 3.87 L Hgb 11.6 L Hct 35.7 L MCV 92.2 MCH 30.0 MCHC 32.5 RDW 13.2 Plt Count 99 L D MPV 14.2 H Absolute Nucleated RBC 0.000 Nucleated RBC % (auto) 0.0 Sodium 140 Potassium 3.9 Chloride 98 Carbon Dioxide 35 H Anion Gap 11 L BUN 11 Creatinine 1.00 Estim Creat Clear Calc 87.9 Estimated GFR 58 Random Glucose 86 Calcium 9.3 D Albumin 3.3 L Imaging Chest x-ray: Radiologist's impression: ITS Impressions Chest X-Ray 05/17/23 00:16 IMPRESSION: Multifocal reticular nodular opacities throughout the lungs. Findings may represent diffuse pneumonia. CT scan would be useful for further evaluation. Chest CT 05/17/23 01:30 IMPRESSION: 1. Symmetric distribution of extensive bilateral groundglass opacities with relative sparing of the lung periphery. In the proper clinical setting, this appearance can be seen with infection including viral pneumonia, though other considerations would include pulmonary edema, pulmonary hemorrhage, or potentially pulmonary alveolar proteinosis. Follow-up imaging within several weeks is recommended to assess for resolution. 2. Coronary artery calcifications. Correlation with cardiac risk factors is recommended. Pulmonary Perfusion Imaging 05/17/23 14:40 IMPRESSION: Based on perfusion only modified PIOPED 2 criteria, pulmonary thromboembolism is absent. Venous Duplex 05/17/23 16:01 IMPRESSION: No DVT demonstrated in the bilateral lower extremity. Chest X-Ray 05/17/23 16:49 IMPRESSION: Evidence of bilateral airspace Discharge Plan Discharge Anticipated Discharge Date/Time: 05/28/23 11:51 Patient Disposition: Home Health Service Discharge Diagnosis: Acute hypoxemic respiratory failure-multifactorial(COPD, pneumonia,question fluid overload) Referrals: Andrea GOMEZ [Outside] - 1 Week Zuri Pinon MD [Primary Care Provider] - 1 Week Discharge Medications: New levofloxacin 750 mg Tablet 750 mg PO Q24H Qty: 2 0RF Cepacol Sore Throat (fidel-men) 15-3.6 mg Lozenge 1 arnaldo mucous membrane Q2H PRN (Reason: Sore Throat) Qty: 10 0RF lorazepam [Ativan] 0.5 mg tablet 0.5 mg PO DAILY PRN (Reason: anxiety) Qty: 7 0RF Mag&Al/Sim/Diphenhyd/Lidocaine [Magic Mouthwash] 10 ml PO Q4H PRN (Reason: cough) Qty: 100 0RF Continued cyclobenzaprine 10 mg tablet 10 mg PO BID PRN (Reason: muscle spasm) levothyroxine 137 mcg tablet 137 mcg PO DAILY ipratropium-albuterol 0.5 mg-3 mg(2.5 mg base)/3 mL solution for nebulization 3 ml inhalation Q6H nabumetone 750 mg tablet 750 mg PO BID trazodone 50 mg tablet 50 mg PO BEDTIME (DME) FreeStyle Lite Strips Strip MISCELLANEOUS BID gabapentin 800 mg tablet 800 mg PO DAILY omeprazole 20 mg capsule,delayed release(DR/EC) 20 mg PO DAILY albuterol sulfate 90 mcg/actuation HFA aerosol inhaler 2 puff inhalation Q4H PRN (Reason: wheezing) duloxetine 60 mg capsule,delayed release(DR/EC) 60 mg PO DAILY cholecalciferol (vitamin D3) [Vitamin D3] 50 mcg (2,000 unit) tablet 50 mcg PO DAILY Incruse Ellipta 62.5 mcg/actuation blister with device 1 inh inhalation DAILY Discharge Orders: Discharge Order (Routine); Ordered 05/28/23 Ordered By: Megan Dunaway Diet: Advance to usual diet Activity on Discharge: As tolerated Stand Alone Forms: Patient Portal Discharge page Print Language: Kosovan Care Plan Goals: 52 year old female with pertinent history of COPD not on home oxygen, mood disorder, hypothyroidism, gastroesophageal reflux disease who presents to the emergency department for evaluation of dyspnea, fever and cough, Flu/RSV/Sars negaitive-admitted for Acute hypoxemic respiratory failure and sepsis due to pneumonia leading to acute exacerbation of COPD-initially received IV antibiotics, steroids, nebs- went ot icu for acute hypoxic respiratory failure d/t multifocal PNA,and likely fluid overload-treated with cpap,high flow ,antibiotics -transfer to the floor patient is still on high-flow and antibiotics-subsequently transferred to the floor, received high-flow, Lasix drip, IV antibiotics: Patient shortness of breath improved significantly off oxygen and Lasix drip, continue home COPD medications and complete Levaquin for 2 more days. home oxygen evaluation done patient did not qualify for home oxygen. anxiety : added 0.5 mg ativan po dialy as needed (d/w psych),continue cymbalta -patient need to follow up with psych outpatient for further management . imaging studies during this admission:patient dvt studies and v/q scan ok, echo- EF 70%,Normal right ventricular cavity size and systolic function. ct chest - Symmetric distribution of extensive bilateral groundglass opacities with relative sparing of the lung periphery. Pt recomended home with service /PT. Health Concerns: as above. Plan of Treatment: complete course of levofloxacin for 2 more days chest imaging in 2 weeks to see resolution of pneumonia . Assessment: as above.
== END 2023-05-28 14:02 | disposition home health service (06) | DRG 871 ==
LOC: HO.ED 05-17 00:38 → HO.EDOVER 05-17 06:00 → HO.ICU 05-17 19:35 → HO.IMC 05-21 09:58
PROVIDERS: Internal Medicine; Internal Medicine Pulmonary Disease; Registered Nurse Community Health; Admitting Provider Student in an Organized Health Care Education/Training Program; Emergency Provider Emergency Medicine; PCP Internal Medicine; Visit Provider Internal Medicine
DX: A41.9 Sepsis, unspecified organism (principal); I50.33 Acute on chronic diastolic (congestive) heart failure; J18.9 Pneumonia, unspecified organism; J96.01 Acute respiratory failure with hypoxia; J44.0 Chronic obstructive pulmonary disease with (acute) lower respiratory infection; J44.1 Chronic obstructive pulmonary disease with (acute) exacerbation; F41.1 Generalized anxiety disorder; F41.0 Panic disorder [episodic paroxysmal anxiety]; I95.2 Hypotension due to drugs; T38.3X5A Adverse effect of insulin and oral hypoglycemic [antidiabetic] drugs, initial encounter; E03.9 Hypothyroidism, unspecified; K21.9 Gastro-esophageal reflux disease without esophagitis; Z20.822 Contact with and (suspected) exposure to COVID-19; Z87.891 Personal history of nicotine dependence; Z79.890 Hormone replacement therapy; Z79.899 Other long term (current) drug therapy
CPT/HCPCS: 0241U; 36415; 36600; 71045; 71250; 78580; 80048; 80076; 80307; 81001; 82040; 82803; 82947; 83605; 83735; 83880; 84100; 84484; 84702; 85025; 85027; 85379; 85610; 86140; 87040; 87070; 87086; 87205; 87633; 93005; 93306; 93970; 94640; 94660; 94799; 97162; 99285; A9540; C1758; C9113; J0456; J0696; J1650; J1885; J1940; J1956; J2060; J2270; J2405; J2543; J2920; J3010; J3480; P9047; Q9957

== ENCOUNTER 2023-05-17 05:50 | Outpatient (BNV) | payer OTHER, SELFPAY | END 2023-05-17 07:00 | PROVIDERS: Admitting Provider Student in an Organized Health Care Education/Training Program; Emergency Provider Emergency Medicine; Visit Provider Internal Medicine Cardiovascular Disease | DX: R06.02 Shortness of breath (principal); R94.31 Abnormal electrocardiogram [ECG] [EKG] | CPT/HCPCS: 93010; 93306 ==

== ENCOUNTER 2023-05-17 05:50 | Outpatient (BNV) | payer OTHER, SELFPAY | END 2023-05-20 15:11 | PROVIDERS: Admitting Provider Student in an Organized Health Care Education/Training Program; Emergency Provider Emergency Medicine; Visit Provider Internal Medicine Cardiovascular Disease | DX: R07.89 Other chest pain (principal); R00.1 Bradycardia, unspecified | CPT/HCPCS: 93010 ==

== ENCOUNTER → 2023-05-17 05:50 | Outpatient (BNV) | payer OTHER, SELFPAY | PROVIDERS: Admitting Provider Student in an Organized Health Care Education/Training Program; Emergency Provider Emergency Medicine; PCP Internal Medicine; Visit Provider Clinical Nurse Specialist Psychiatric/Mental Health | DX: F41.1 Generalized anxiety disorder (principal); F41.0 Panic disorder [episodic paroxysmal anxiety]; J81.1 Chronic pulmonary edema; R06.03 Acute respiratory distress; J18.9 Pneumonia, unspecified organism | CPT/HCPCS: 99222 ==

== ENCOUNTER → 2023-05-17 05:50 | Outpatient (BNV) | payer OTHER, SELFPAY | PROVIDERS: Admitting Provider Student in an Organized Health Care Education/Training Program; Emergency Provider Emergency Medicine; Visit Provider Internal Medicine Pulmonary Disease | DX: J81.1 Chronic pulmonary edema (principal); J18.9 Pneumonia, unspecified organism; J96.01 Acute respiratory failure with hypoxia; J44.9 Chronic obstructive pulmonary disease, unspecified; E03.9 Hypothyroidism, unspecified; F39 Unspecified mood [affective] disorder | CPT/HCPCS: 99222; 99232 ==

== ENCOUNTER → 2023-05-17 05:50 | Outpatient (BNV) | payer OTHER, SELFPAY | PROVIDERS: Admitting Provider Student in an Organized Health Care Education/Training Program; Emergency Provider Emergency Medicine; Visit Provider Student in an Organized Health Care Education/Training Program | DX: J18.9 Pneumonia, unspecified organism (principal) | CPT/HCPCS: 99223; 99231; 99232; 99239; 99499; G0180 ==

== ENCOUNTER → 2023-05-17 05:50 | Outpatient (BNV) | payer OTHER, SELFPAY | PROVIDERS: Admitting Provider Student in an Organized Health Care Education/Training Program; Emergency Provider Emergency Medicine; Visit Provider Registered Nurse Community Health | DX: J96.01 Acute respiratory failure with hypoxia (principal); A41.9 Sepsis, unspecified organism; J81.1 Chronic pulmonary edema; J18.9 Pneumonia, unspecified organism | CPT/HCPCS: 99291; 99499 ==

== ENCOUNTER 2024-09-01 09:04 | Inpatient (IN) | payer OTHER, SELFPAY ==
[2024-09-01] VITALS (13 sets, daily range): BP systolic 98–155; BP diastolic 47–86; PULSE 71–107; RESP 18–35; TEMP 36.1–36.7; O2SAT 94–98; BMI 38.2
--- NOTE | ~2024-09-01 | CT_ITS ---
EXAMINATION: CT CHEST WITHOUT CONTRAST CLINICAL INFORMATION: Hypoxia with productive cough. DLP: 680 mGY*cm COMPARISON: May 17, 2023 TECHNIQUE: Multidetector volumetric CT imaging of the chest was done. Axial MIP volume rendering provided. Sagittal and coronal reformatted images were obtained. This CT examination was performed using dose optimization techniques as appropriate, variously including the following: *Automated exposure control *Adjustment of mA and/or kV according to patient size (this includes techniques or standardized protocols for targeted exams where dose is matched to indication/reason for exam; i.e. extremities or head) *Use of iterative reconstruction technique FINDINGS: LUNGS: Patchy groundglass density is visible in the lingula extending into the other portions of the left upper lobe, faintly in the central portions of the left lower lobe, in the anteromedial aspect of the right upper lobe, along the junction of the medial and lateral segments of the right middle lobe, and minimally in the base of the right lower lobe. On the prior examination there was extensive groundglass and airspace opacities with peripheral sparing. The distribution is seen since the prior examination and the density is decreased compared to the prior. MEDIASTINUM: Shotty mediastinal lymph nodes are smaller than on the prior exam. CORONARY ARTERY CALCIFICATION: Present PLEURA: No pleural effusion or pleural thickening is present. AXILLA: No lymphadenopathy. UPPER ABDOMEN: Unremarkable. OSSEOUS STRUCTURES: Unremarkable. CT/CT chest wo IV con IMPRESSION: Multilobar groundglass densities are most pronounced in the lingula, but all lobes are affected. The appearance is nonspecific but could represent an atypical or viral pneumonia, pulmonary hemorrhage, or less likely pulmonary alveolar proteinosis. The distribution and lack of pleural effusions is not typical for pulmonary edema. Fleischner guidelines were followed. Electronically signed by: Chang Hernandez MD 09/01/2024 11:50 AM EDT
--- NOTE | 2024-09-01 09:14 | ECG_ITS ---
Test Reason : dyspnea Blood Pressure : */* mmHG Vent. Rate : 100 BPM Atrial Rate : 100 BPM P-R Int : 140 ms QRS Dur : 76 ms QT Int : 336 ms P-R-T Axes : -13 -22 30 degrees QTcB Int : 433 ms Normal sinus rhythm Low voltage QRS Inferior infarct , age undetermined Abnormal ECG When compared with ECG of 20-May-2023 15:10, Vent. rate has increased by 51 bpm Inferior infarct is now Present Referred By: Yu Cano Electronically Signed By: ILIANA GAMBINO
[2024-09-01] MEDS: Albuterol Sulfate 7.5 MG, Albuterol/Iprat 2.5/0.5MG 3 ML 3 ML INHALE (09:23)
--- NOTE | 2024-09-01 09:43 | ED.SOB ---
HPI - SOB/Dyspnea General Chief Complaint: Dyspnea Stated Complaint: PT STS SOB/GETS SEPSIS OFTENON DUONEB PER EMS Time Seen by Provider: 09/01/24 09:10 Source: patient, EMS and old records reviewed Mode of arrival: EMS Limitations: other (poor historian) History of Present Illness ED Provider: CLARI HPI Narrative: 54 yo female with PMH of COPD not on home O2, hypothyroidism, mood disorder hx of multifocal pneumonia and CPAP needs back in May of 2023. The patient states she has been sick x 2 months but worrse last night with fevers, chills, productive cough, dyspnea. She notes she has pain when she takes a deep breath on L back and chest. She denies sick contacts, travel. She stopped smoking 2 days ago. She tried inhaler but no relief. She is very vague and is adamant she was intubated here in May I explained she was not intubated and has not been under ICU care here since May of 2023. She is adamant that she was intubated here in May of some year but is not able to give details and I explained she was not on ventilator care in our hospital. When EMS arrived patient was 90% on RA and BPs were 83/64 she gave a duoneb and sats up to mid 90s. SHe was given 500NS of fluids and was normotensive on arrival here. MD elicited complaint: shortness of breath, cough and pain with inspiration Pertinent past history: COPD and pneumonia Onset (ago): month(s) (2) Context: other Timing: progressively worsening Severity: severe Exacerbating factors: lying flat, movement and coughing Relieving factors: oxygen, rest, bronchodilators and upright position Known history of: COPD Associated symptoms: chest pain, pain with inspiration, cough, wheezing, sputum production, nausea/vomiting and chest congestion Treatment prior to arrival: oxygen and bronchodilator Related Data Home Medications ?Medication ?Instructions ?Recorded ?Confirmed albuterol sulfate 90 mcg/actuation 2 puff inhalation Q4H PRN wheezing 05/17/23 05/17/23 aerosol inhaler blood sugar diagnostic (FreeStyle 05/17/23 Lite Strips) cholecalciferol (vitamin D3) 50 50 mcg PO DAILY 05/17/23 05/17/23 mcg (2,000 unit) tablet (Vitamin D3) cyclobenzaprine 10 mg tablet 10 mg PO BID PRN muscle spasm 05/17/23 05/17/23 duloxetine 60 mg capsule,delayed 60 mg PO DAILY 05/17/23 05/17/23 release gabapentin 800 mg tablet 800 mg PO DAILY 05/17/23 05/17/23 ipratropium 0.5 mg-albuterol 3 mg 3 ml inhalation Q6H 05/17/23 05/17/23 (2.5 mg base)/3 mL nebulization soln levothyroxine 137 mcg tablet 137 mcg PO DAILY 05/17/23 05/17/23 nabumetone 750 mg tablet 750 mg PO BID 05/17/23 05/17/23 omeprazole 20 mg capsule,delayed 20 mg PO DAILY 05/17/23 05/17/23 release trazodone 50 mg tablet 50 mg PO BEDTIME 05/17/23 05/17/23 umeclidinium 62.5 mcg/actuation 1 inh inhalation DAILY 05/17/23 05/17/23 blister powder for inhalation (Incruse Ellipta) Previous Rx's ?Medication ?Instructions ?Recorded Mag&Al/Sim/Diphenhyd/Lidocaine 10 ml PO Q4H PRN cough #100 mL 05/28/23 [Magic Mouthwash] benzocaine 15 mg-menthol 3.6 mg 1 arnaldo mucous membrane Q2H PRN Sore 05/28/23 lozenges (Cepacol Sore Throat Throat #10 ea (benzocaine-menthol)) furosemide 20 mg tablet (Lasix) 20 mg PO DAILY #30 tabs 05/28/23 levofloxacin 750 mg tablet 750 mg PO Q24H #2 tabs 05/28/23 lorazepam 0.5 mg tablet (Ativan) 0.5 mg PO DAILY PRN anxiety #7 tabs 05/28/23 Allergies Allergy/AdvReac Type Severity Reaction Status Date / Time iodine (IODINE) Allergy Unknown UNKNOWN Verified 09/01/24 09:20 shellfish Allergy Unknown Anaphylaxis Uncoded 05/17/23 00:29 Review of Systems Review of Systems: Constitutional : No Fever, pos Chills ENT/Mouth : No Hoarseness, No sore throat, No Rhinorrhea Eyes: No Redness, No Discharge, No Vision Changes Cardiovascular : pos Chest Pain, positive SOB, positive Dyspnea on Exertion, No Edema Respiratory : positive Cough, No Sputum, positive Wheezing, Gastrointestinal : pos Nausea, pos Vomiting, No Diarrhea, No abdominal Pain Genitourinary : No Dysuria, No Hematuria Musculoskeletal : No joint pain, No Myalgias Skin : No rash Neuro : pos Weakness, No Numbness, No Headache Psych : No anxiety, depression All other systems reviewed and are negative [facility] Past Medical History Attestation statement: The following information was validated with the patient. Source: old records reviewed Medical History Hypothyroidism GERD (gastroesophageal reflux disease) Mood disorder COPD (chronic obstructive pulmonary disease) Social History Social History Alcohol intake: former Comment: refuses bed alarms Patient Tobacco Use Status: Current everyday Tobacco user Smoked in Last 30 Days: Yes Advance Directives: Yes Advance Directives on File: Yes Advance Directives Date on File: 05/17/23 service: No Physical Exam Vital Signs: Vital Signs: Last Vital Signs Temp 97.7 F 09/01/24 09:13 Pulse 85 09/01/24 11:55 Resp 20 09/01/24 11:55 BP 100/56 L 09/01/24 11:55 Pulse Ox 96 09/01/24 11:55 O2 Del Method Nasal Cannula 09/01/24 11:55 O2 Flow Rate 2 09/01/24 11:55 Oxygen Flow Rate 3 09/01/24 09:13 BMI result Body Mass Index 38.2 Appearance: Alert. Oriented X3. anxious mild acute distress. Eyes: Pupils equal, round and reactive to light. ENT: Pharynx normal. Neck: Normal inspection. Neck supple. CVS: tachcyardic heart rate and rhythm. Pulses normal. Respiratory: Mild respiratory distress tachypnea Breath sounds crackles both bases but no wheezes heard Abdomen: Soft and nontender. Skin: Skin warm and diaphoretic. Normal skin color. Normal skin turgor. Extremities: No lower extremity edema. Neuro: Oriented X 3. No motor deficit. No sensory deficit. CN2-12 intact Course Course Course Narrative: VS improving and respiratory status improving Medications Administered Discontinued Medications Generic Name Dose Route Start Last Admin Trade Name Freq PRN Reason Stop Dose Admin Ceftriaxone Sodium 2 gm 09/01/24 09:10 09/01/24 09:45 Ceftriaxone Sodium 2 Gm Vial IVPUSH 09/01/24 09:11 2 gm ONCE ONE Administration Albuterol Sulfate 7.5 mg/ 0 mg 09/01/24 09:22 09/01/24 09:23 Albuterol/Ipratropium 3 ml INHALE 09/01/24 09:23 10 each ONCE ONE Administration Acetaminophen 1,000 mg in 100 mls @ 400 mls/hr 09/01/24 09:17 09/01/24 10:35 Ofirmev IV 09/01/24 09:31 Infused ONCE ONE Infusion Sodium Chloride 500 mls @ 500 mls/hr 09/01/24 09:21 09/01/24 09:56 Ns IV 09/01/24 10:20 Infused .Q1H ONE Infusion Sodium Chloride 1,000 mls @ 999 mls/hr 09/01/24 10:56 09/01/24 11:58 Ns IV 09/01/24 11:56 Infused .Q1H1M ONE Infusion Methylprednisolone Sodium Succinate 60 mg 09/01/24 09:10 09/01/24 09:54 Methylprednisolone Sod Succ 125 Mg/2 Ml Vial IVPUSH 09/01/24 09:11 60 mg ONCE ONE Administration Medical Decision Making Medical Decision Making MDM Narrative: 54 yo female with PMH of COPD not on home O2, hypothyroidism, mood disorder hx of multifocal pneumonia and CPAP now here with illness x 2 months but worse in past night initially hypotensive with EMS but normotensive here - she is doing well on supplemental O2 no need for high flow or NIPPV at this time. Possible VTE low prob will obtain ddimer, low prob ACS, COPD, pneumonia - will obtain labs, cultures, vbg, CTA:PE, start on IV steroids and neb protocol. I have ordered IV tylenol. I am holding any further fluid given concern for rales on exam and hx of possible high preserved EF CHF. Differential Diagnosis Differential Diagnoses: The differential diagnosis associated with the presentation includes COPD, pneumonia, VTE low prob ddimer negative, low prob ACS, non compliance Admission/Observation Consideration of admission/observation: Escalation of care including admission/observation considered admit for hypoxia, multifocal opacities clinically low prob of hemorrhage Consult Healthcare Provider Management of the patient was discussed with: Hospitalist (will admit) Lab Data [facility] Lab Attestation statement: I reviewed the patient's lab results. 09/01/24 09:36 09/01/24 09:36 Labs: Lab Results 09/01/24 09/01/24 09/01/24 Range/Units 09:34 09:36 09:44 WBC 14.1 H (4.8-10.8) X10*3/uL RBC 4.94 D (4.20-5.50) X10*6/uL Hgb 15.1 D (12.0-16.0) g/dl Hct 44.1 D (37.0-47.0) % MCV 89.3 (80.0-98.0) fL MCH 30.6 (27.0-33.0) pg MCHC 34.2 (31.0-35.0) g/dl RDW 13.8 (11.0-16.0) % Plt Count 121 L (160-400) X10*3/uL MPV Not Reportable Immature Gran % (Auto) 0.3 (0.0-0.4) % Neut % (Auto) 77.7 H (45-73) % Lymph % (Auto) 16.1 L (20-40) % [place] % (Auto) 4.6 (2-11) % Eos % (Auto) 0.9 (0-4) % Baso % (Auto) 0.4 (0-2) % Lymph # (Auto) 2.3 (1.2-4.9) X10*3/uL [place] # (Auto) 0.6 (0.1-1.2) X10*3/uL Eos # (Auto) 0.1 (0.0-0.4) X10*3/uL Baso # (Auto) 0.1 (0.0-0.2) X10*3/uL Abs Immat Gran (auto) 0.04 H (0.00-0.03) X10*3/uL Absolute Neuts (auto) 10.9 H (2.0-8.3) x10*3/uL Absolute Nucleated RBC 0.000 (0.0-0.012) X10*3/uL Nucleated RBC % (auto) 0.0 (0.0-0.2) /100WBC Smear Tech's Comments VERIFIED D-Dimer High Sensitivty NG/ML VBG pH 7.48 H (7.32-7.43) VBG pCO2 28 mmHg VBG pO2 72 mmHg VBG HCO3 21 L (22-26) mmol/L VBG O2 Saturation 95.0 % VBG Base Excess -1.0 mmol/L Sodium 142 (135-145) mmol/L Potassium 3.8 (3.3-5.1) mmol/L Chloride 110 H (96-108) mmol/L Carbon Dioxide 21 L (22-29) mmol/L Anion Gap 15 (12-20) BUN 21 H (9-16) mg/dL Creatinine 0.77 (0.5-1.4) mg/dL Estim Creat Clear Calc 108.2 Estimated GFR > 60 Random Glucose 104 (60-115) mg/dL Lactic Acid 1.6 (0.5-2.0) mmol/L Calcium 9.5 (8.4-10.2) mg/dL Magnesium 1.7 (1.6-2.6) mg/dL Total Bilirubin 0.3 (0.0-1.0) mg/dL Direct Bilirubin 0.1 (0.0-0.5) mg/dL AST 33 H (5-31) U/L ALT 24 (0-31) U/L Alkaline Phosphatase 102 (39-117) U/L Troponin I High Sens 3.4 (<3.5-17.0) ng/L C-Reactive Protein 3.50 H (< or = 0.50) mg/dL B-Natriuretic Peptide < 10 (<100) pg/mL Total Protein 7.4 (6.5-8.0) g/dL Albumin 4.1 (3.5-5.0) g/dL Lipase 20 (8-78) U/L Procalcitonin 0.03 ng/mL Influenza Type A (PCR) NEGATIVE (Negative) Influenza Type B (PCR) NEGATIVE (Negative) RSV RNA Qual (PCR) NEGATIVE (Negative) SARS-CoV-2 RNA (RT-PCR) NEGATIVE (Negative) 09/01/24 Range/Units 10:41 WBC (4.8-10.8) X10*3/uL RBC (4.20-5.50) X10*6/uL Hgb (12.0-16.0) g/dl Hct (37.0-47.0) % MCV (80.0-98.0) fL MCH (27.0-33.0) pg MCHC (31.0-35.0) g/dl RDW (11.0-16.0) % Plt Count (160-400) X10*3/uL MPV Immature Gran % (Auto) (0.0-0.4) % Neut % (Auto) (45-73) % Lymph % (Auto) (20-40) % [place] % (Auto) (2-11) % Eos % (Auto) (0-4) % Baso % (Auto) (0-2) % Lymph # (Auto) (1.2-4.9) X10*3/uL [place] # (Auto) (0.1-1.2) X10*3/uL Eos # (Auto) (0.0-0.4) X10*3/uL Baso # (Auto) (0.0-0.2) X10*3/uL Abs Immat Gran (auto) (0.00-0.03) X10*3/uL Absolute Neuts (auto) (2.0-8.3) x10*3/uL Absolute Nucleated RBC (0.0-0.012) X10*3/uL Nucleated RBC % (auto) (0.0-0.2) /100WBC Smear Tech's Comments D-Dimer High Sensitivty 167 NG/ML VBG pH (7.32-7.43) VBG pCO2 mmHg VBG pO2 mmHg VBG HCO3 (22-26) mmol/L VBG O2 Saturation % VBG Base Excess mmol/L Sodium (135-145) mmol/L Potassium (3.3-5.1) mmol/L Chloride (96-108) mmol/L Carbon Dioxide (22-29) mmol/L Anion Gap (12-20) BUN (9-16) mg/dL Creatinine (0.5-1.4) mg/dL Estim Creat Clear Calc Estimated GFR Random Glucose (60-115) mg/dL Lactic Acid (0.5-2.0) mmol/L Calcium (8.4-10.2) mg/dL Magnesium (1.6-2.6) mg/dL Total Bilirubin (0.0-1.0) mg/dL Direct Bilirubin (0.0-0.5) mg/dL AST (5-31) U/L ALT (0-31) U/L Alkaline Phosphatase (39-117) U/L Troponin I High Sens (<3.5-17.0) ng/L C-Reactive Protein (< or = 0.50) mg/dL B-Natriuretic Peptide (<100) pg/mL Total Protein (6.5-8.0) g/dL Albumin (3.5-5.0) g/dL Lipase (8-78) U/L Procalcitonin ng/mL Influenza Type A (PCR) (Negative) Influenza Type B (PCR) (Negative) RSV RNA Qual (PCR) (Negative) SARS-CoV-2 RNA (RT-PCR) (Negative) Independent Interpretation I performed an independent interpretation of an: EKG and CT Scan (multifocal opacity) Interpretation: Rate: 100 Rhythm: sinus tach [place]: left Normal P waves. Normal CARMELO. Normal QRS complex. ST T wave : nonspecific ST T wave changes, no KOFI, inverted t waves V1 and V2 qTC: 433 prior studies: no change from prior The study has been interpreted contemporaneously by me. . Radiology Impression Discussion of test interpretation with radiology: I have reviewed the radiologist's reading. Independent Historian Clinical information obtained from an independent historian. History obtained from or confirmed by: Spouse and EMS External Record Review External record reviewed: Inpatient record and Outpatient record Critical Care Time Critical Care Time Critical Care Time: Yes Total Critical Care Time: 60 Attestation: Time is exclusive of separately billable procedures. Time includes: direct patient care, patient reassessment, coordination of patient care, interpretation of data (laboratory data, pulse oximetry, venous blood gases and CT chest), review of patient's medical records, medical consultation and documentation of patient care. sepsis protocol, resuscitation Procedures excluded from critical care time: electrocardiography. I attest to this time spent taking care of the patient Discharge Plan Discharge Clinical Impression: Hypoxia Pneumonia Qualifiers: Pneumonia type: due to unspecified organism Laterality: bilateral Lung location: unspecified part of lung Qualified Code(s): J18.9 - Pneumonia, unspecified organism Patient Disposition: Admitted As Inpatient Print Language: [place] Sepsis Bolus Exclusion Sepsis Bolus Exclusion Date of Occurrence: 09/01/24 This patient met severe sepsis criteria due to the following condition(s):: Hypotension In my clinical judgement the administration of 30 ml/kg of crystalloid would be detrimental to this patient due to the patient's following conditions:: Concern for fluid overload Replace the 30 mls/kg with (Zero amount not acceptable and all fluids for severe sepsis must be given at GREATER than 125 mls/hr) *Note: One of the viera must be documented Crystalloids amount given in mls: (rate must be at least 150cc/hr): 500 Colloids amount given in mls:: 0
[2024-09-01 09:48] LABS: VBG HCO3 21 mmol/L (22-26); VBG O2 % Saturation 95.0 %
[2024-09-01 10:00] LABS: Hematocrit 44.1 % (37.0-47.0); Imm Gran Abs Auto 0.04 X10*3/uL (0.00-0.03); Imm Gran Pct Auto 0.3 % (0.0-0.4); Lymphocytes Absolute Auto 2.3 X10*3/uL (1.2-4.9); MANUAL DIFF FLAG SCAN; Mean Corpuscular HGB Conc 34.2 g/dl (31.0-35.0); Mean Corpuscular Hemoglobin 30.6 pg (27.0-33.0); Mean Corpuscular Volume 89.3 fL (80.0-98.0); NRBC Abs Auto 0.000 X10*3/uL (0.0-0.012); NRBC Pct Auto 0.0 /100WBC (0.0-0.2); PLT CLUMP 1; Red Blood Count 4.94 X10*6/uL (4.20-5.50); SCAN SMEAR FLAG 1
[2024-09-01 10:01] LABS: Hemoglobin 15.1 g/dl (12.0-16.0)
[2024-09-01 10:07] LABS: B Type Natriuretic Peptide < 10 pg/mL (<100)
[2024-09-01 10:09] LABS: Troponin-I High Sensitivity 3.4 ng/L (<3.5-17.0)
[2024-09-01 10:24] LABS: Alanine Aminotransferase 24 U/L (0-31); Albumin Level 4.1 g/dL (3.5-5.0); Alkaline Phosphatase 102 U/L (39-117); Anion Gap 15 (12-20); Aspartate Amino Transferase 33 U/L (5-31); Blood Urea Nitrogen 21 mg/dL (9-16); Calcium 9.5 mg/dL (8.4-10.2); Carbon Dioxide 21 mmol/L (22-29); Chloride 110 mmol/L (96-108); Creatinine Clr Calc Pharmacy 108.2; Estimated Glomerular Filt Rate > 60; Lipase 20 U/L (8-78); Magnesium 1.7 mg/dL (1.6-2.6); Platelet Count 121 X10*3/uL (160-400); Potassium 3.8 mmol/L (3.3-5.1); Sodium 142 mmol/L (135-145); Total Protein 7.4 g/dL (6.5-8.0); White Blood Count 14.1 X10*3/uL (4.8-10.8)
[2024-09-01 10:28] LABS: Resp Syncy Virus RNA Qual PCR NEGATIVE (Negative); SARS COV2 PCR INHOUSE NEGATIVE (Negative)
[2024-09-01 10:37] LABS: Procalcitonin 0.03 ng/mL
[2024-09-01 10:39] LABS: Venous Blood Gas Refer to POC result
--- OUTSIDE RECORDS SUMMARY | 2024-09-01 10:51 | XMS_ITS | Clinical Summary ---
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 Name Role Phone Unavailable Primary Care Provider Unavailabl e Social History Tobacco Use Types Packs/Day Years Used Date Smoking Tobacco: Never Assessed Comments Unknown Sex and Gender Information Value Date Recorded Sex Assigned at Female 12/19/2021 10:17 AM EDT Legal Sex Female 10:17 AM EDT Gender Identity Not on file Sexual Orientation Not on file Plan of Treatment Health Maintenance Due Date Last Done Comments CT Colonography 1971 Colonoscopy 1971 Colorectal Cancer Screening 1971 Depression Screening 1971 FIT DNA/Cologuard 1971 FIT 1971 FOBT 1971 Sigmoidoscopy 1971 Disability Screening 1971 Alcohol/Substance Use Screening 1983 Tobacco Screening 1983 DTaP/Tdap/Td Vaccines (1 - Tdap) 08/07/1990 Hepatitis B Vaccines (1 of 3 - 19+ 3-dose series) 08/07/1990 Pap Smear 08/07/1992 Cervical Cancer Screening 08/07/2001 HPV/Cotest 08/07/2001 Mammogram 04/06/2019 04/06/2017 Pneumococcal Vaccine: 50+ Ye ars (1 of 1 - PCV) 08/07/2021 Zoster Vaccines (1 of 2) 08/07/2021 COVID-19 Vaccine ( - 2023-2 5 season) 2023 Influenza Vaccine (#1) 2024 RSV Patients and Pa tients Aged 60 years or older (1 - 1-dose 75+ series) 08/07/2046 HIB Vaccines Aged Out No longer eligi ble based on patient's age to complete this topic HPV Vaccines Aged Out No longer eligi ble based on patient's age to complete this topic Hepatitis A Vaccines Aged Out No long er eligible based on patient's age to complete this topic IPV Vaccines Aged Out No longer eligi ble based on patient's age to complete this topic Meningococcal B Vaccine Aged Out No l onger eligible based on patient's age to complete this topic Meningococcal Vaccine Aged Out No pedro irasema eligible based on patient's age to complete this topic RSV under 20 months Aged Out No longe r eligible based on patient's age to complete this topic Rotavirus Vaccines Aged Out No longer eligible based on patient's age to complete this topic Procedures Procedure Name Priority Date/Time Associated Diagnosis Comments BI MAMMOGRAM DIAGNOSTIC BILATERAL Routine 04/06/2017 11:59 AM EST from Last 3 Months or Most Recently Relevant to Health Maintenance Results * 3D BILATERAL DIAGN MAMMO 1 (04/06/2017 11:59 AM EST) Anatomical Region Laterality Modality Breast Bilateral Mammography 04/06/2017 11:5 9 AM EST Narrative 04/06/2017 12:00 PM EST Refer to the Notes tab for result details [facility] Procedure: 3D BILATERAL DIAGN MAMMO 1 Procedure Note Provider, Liana, - 05/13/2022 Refer to the Notes tab for result details [facility] Procedure: 3D BILATERAL DIAGN MAMMO 1 David Velazquez [facility] [facility]EL[facility] IMG BI PROCEDURES Final Result from Last 3 Months or Most Recently Relevant to Health Maintenance
--- OUTSIDE RECORDS SUMMARY | 2024-09-01 10:51 | XMS_ITS | Clinical Summary ---
Author Organization [facility] Address [address] [place] [id number] Care Team Providers Care Ice Cream Man Name Role Phone Unavailable Primary Care Provider Unavailabl e Social History Tobacco Use Types Packs/Day Years Used Date Smoking Tobacco: Never Assessed Comments Unknown Sex and Gender Information Value Date Recorded Sex Assigned at Not on file Legal Sex Female 6:53 PM EST Gender Identity Not on file Sexual Orientation Not on file Plan of Treatment Health Maintenance Due Date Last Done Comments Hepatitis C Virus Screening 1971 HIV Screening 08/07/1984 DTaP/Tdap/Td Vaccines (1 - Tdap) 08/07/1990 Hepatitis B Vaccines (1 of 3 - 19+ 3-dose series) 07/20 Pneumococcal Vaccines 50+ (1 of 1 - PCV) 08/07/2021 Zoster (Shingles) Vaccine (1 of 2) 08/07/2021 COVID-19 Vaccine ( - 2023- season) 2023
[2024-09-01 11:02] LABS: D Dimer High Sensitivity 167 NG/ML
--- NOTE | 2024-09-01 11:49 | PC.NURSE ---
Pt still c/o generalized pain but HR and work of breathing have both improved (see vs); pt weaned down to 2 ltr NC with [id number]%; pt speaking full sentences
--- NOTE | 2024-09-01 13:08 | PM.IMHP ---
History of Present Illness Date of Service: 09/01/24 Chief Complaint: sob 54F PMH COPD, mood disorder, hypothryoid, GERD, presented with sob. Patient states symptoms ongoing for about 2 months prior to presentation. Reports gradual onset and worsening of shortness breath, subjective fevers and chills, diaphoresis, cough-nonproductive, denies any sick contacts, recent travel. Reports symptoms similar to previous admission in May 2023 for severe atypical pneumonia requiring high-flow oxygen. In ED CT chest with bilateral opacities. Review of Systems Review of Systems: Yes all other systems are reviewed and are negative [facility] Medical History Hypothyroidism GERD (gastroesophageal reflux disease) Mood disorder COPD (chronic obstructive pulmonary disease) Social History Alcohol intake: former Comment: refuses bed alarms Patient Tobacco Use Status: Current everyday Tobacco user Smoked in Last 30 Days: Yes Advance Directives: Yes Advance Directives on File: Yes Advance Directives Date on File: 05/17/23 Nutrition Risks: No Nutritional Risk and Difficulty swallowing service: No Meds Allergies Allergy/AdvReac Type Severity Reaction Status Date / Time iodine (IODINE) Allergy Unknown UNKNOWN Verified 09/01/24 09:20 shellfish Allergy Unknown Anaphylaxis Uncoded 05/17/23 00:29 Active Medications: Current Medications Acetaminophen (Acetaminophen 325 Mg Tablet) 650 mg PO Q6H PRN PRN Reason: Pain, Mild 1-3,fever,headache Albuterol/Ipratropium (Albuterol/Iprat 2.5/0.5mg 3 Ml Ampul.Neb) 3 ml INHALE RQ4H WHILE AWAKE PRN PRN Reason: sob Calcium Carbonate (Calcium Carbonate 750 Mg Tab.Chew) 750 mg PO Q4H PRN PRN Reason: Heartburn Ceftriaxone Sodium (Ceftriaxone Sodium 1 Gm Vial) 1 gm IVPUSH Q24H EMEKA Enoxaparin Sodium (Enoxaparin Sodium 40 Mg/0.4 Ml Syringe) 40 mg SUBCUT Q24H EMEKA Doxycycline Hyclate 100 mg/ (Sodium Chloride) 250 mls @ 166.67 mls/hr IV ONCE ONE Stop: 09/01/24 13:34 Last Admin: 09/01/24 12:21 Dose: 166.67 mls/hr Magnesium Hydroxide (Milk Of Magnesia 30 Ml Oral.Susp) 30 ml PO DAILY PRN PRN Reason: Constipation Melatonin (Melatonin 3 Mg Tablet) 6 mg PO BEDTIME PRN PRN Reason: Insomnia Methylprednisolone Sodium Succinate (Methylprednisolone Sod Succ 40 Mg/Ml Vial) 40 mg IVPUSH Q12H EMEKA Sodium Chloride (0.9 % Sodium Chloride Flush 3 Ml Syringe) 3 ml IVFLUSH QSHIFT [facility] Home Medications ?Medication ?Instructions ?Recorded ?Confirmed ?Last Taken ?Type albuterol sulfate 90 mcg/actuation 2 puff inhalation Q4H PRN wheezing 05/17/23 05/17/23 Unknown History aerosol inhaler blood sugar diagnostic (FreeStyle 05/17/23 Unknown History Lite Strips) cholecalciferol (vitamin D3) 50 50 mcg PO DAILY 05/17/23 05/17/23 Unknown History mcg (2,000 unit) tablet (Vitamin D3) cyclobenzaprine 10 mg tablet 10 mg PO BID PRN muscle spasm 05/17/23 05/17/23 Unknown History duloxetine 60 mg capsule,delayed 60 mg PO DAILY 05/17/23 05/17/23 Unknown History release gabapentin 800 mg tablet 800 mg PO DAILY 05/17/23 05/17/23 Unknown History ipratropium 0.5 mg-albuterol 3 mg 3 ml inhalation Q6H 05/17/23 05/17/23 Unknown History (2.5 mg base)/3 mL nebulization soln levothyroxine 137 mcg tablet 137 mcg PO DAILY@0600 05/17/23 05/17/23 Unknown History nabumetone 750 mg tablet 750 mg PO BID 05/17/23 05/17/23 Unknown History omeprazole 20 mg capsule,delayed 20 mg PO DAILY@0630 05/17/23 05/17/23 Unknown History release trazodone 50 mg tablet 50 mg PO BEDTIME 05/17/23 05/17/23 Unknown History umeclidinium 62.5 mcg/actuation 1 inh inhalation DAILY 05/17/23 05/17/23 Unknown History blister powder for inhalation (Incruse Ellipta) levetiracetam 500 mg tablet 500 mg PO BID 09/01/24 Unknown History Physical Exam Vital Signs and Narrative: Vital Signs: Last Vital Signs Temp 97.6 F 09/01/24 12:31 Pulse 72 09/01/24 12:31 Resp 18 09/01/24 12:31 BP 98/47 L 09/01/24 12:31 Pulse Ox 98 09/01/24 12:31 O2 Del Method Nasal Cannula 09/01/24 12:31 O2 Flow Rate 2 09/01/24 12:31 Oxygen Flow Rate 3 09/01/24 09:13 BMI result Body Mass Index 38.2 General: AO X 3, dyspnea Resp: Crackles bilateral, mild accessory muscles used CVS: S1,S2,RRR GI: soft, non tender, non distended Neuro: motor grossly intact, alert Psych: appropriate affect, appropriate insight Results Labs 09/01/24 09:36 09/01/24 09:36 Labs: Laboratory Results - last 24 hr 09/01/24 09/01/24 09/01/24 09:34 09:36 09:44 MCV 89.3 MCH 30.6 MCHC 34.2 RDW 13.8 Plt Count 121 L MPV Not Reportable Immature Gran % (Auto) 0.3 Neut % (Auto) 77.7 H Lymph % (Auto) 16.1 L [place] % (Auto) 4.6 Eos % (Auto) 0.9 Baso % (Auto) 0.4 Lymph # (Auto) 2.3 [place] # (Auto) 0.6 Eos # (Auto) 0.1 Baso # (Auto) 0.1 Abs Immat Gran (auto) 0.04 H Absolute Neuts (auto) 10.9 H Absolute Nucleated RBC 0.000 Nucleated RBC % (auto) 0.0 Smear Tech's Comments VERIFIED D-Dimer High Sensitivty VBG pH 7.48 H VBG pCO2 28 VBG pO2 72 VBG HCO3 21 L VBG O2 Saturation 95.0 VBG Base Excess -1.0 Anion Gap 15 Estim Creat Clear Calc 108.2 Estimated GFR > 60 Random Glucose 104 Lactic Acid 1.6 Calcium 9.5 Magnesium 1.7 Total Bilirubin 0.3 Direct Bilirubin 0.1 AST 33 H ALT 24 Alkaline Phosphatase 102 C-Reactive Protein 3.50 H B-Natriuretic Peptide < 10 Total Protein 7.4 Albumin 4.1 Lipase 20 Procalcitonin 0.03 Influenza Type A (PCR) NEGATIVE Influenza Type B (PCR) NEGATIVE RSV RNA Qual (PCR) NEGATIVE SARS-CoV-2 RNA (RT-PCR) NEGATIVE 09/01/24 10:41 MCV MCH MCHC RDW Plt Count MPV Immature Gran % (Auto) Neut % (Auto) Lymph % (Auto) [place] % (Auto) Eos % (Auto) Baso % (Auto) Lymph # (Auto) [place] # (Auto) Eos # (Auto) Baso # (Auto) Abs Immat Gran (auto) Absolute Neuts (auto) Absolute Nucleated RBC Nucleated RBC % (auto) Smear Tech's Comments D-Dimer High Sensitivty 167 VBG pH VBG pCO2 VBG pO2 VBG HCO3 VBG O2 Saturation VBG Base Excess Anion Gap Estim Creat Clear Calc Estimated GFR Random Glucose Lactic Acid Calcium Magnesium Total Bilirubin Direct Bilirubin AST ALT Alkaline Phosphatase C-Reactive Protein B-Natriuretic Peptide Total Protein Albumin Lipase Procalcitonin Influenza Type A (PCR) Influenza Type B (PCR) RSV RNA Qual (PCR) SARS-CoV-2 RNA (RT-PCR) Imaging Radiologist's Impressions: Impressions Chest CT 09/01/24 09:49 IMPRESSION: Multilobar groundglass densities are most pronounced in the lingula, but all lobes are affected. The appearance is nonspecific but could represent an atypical or viral pneumonia, pulmonary hemorrhage, or less likely pulmonary alveolar proteinosis. The distribution and lack of pleural effusions is not typical for pulmonary edema. Fleischner guidelines were followed. Electronically signed by: Chang Hernandez MD 09/01/2024 11:50 AM EDT Assessment and Plan (1) Mood disorder: Status: Acute Plan 54F PMH COPD, mood disorder, hypothryoid, GERD, presented with sob Sepsis due to pneumonia complicated by COPD with acute decompensation Ceftriaxone, azithromycin, follow up respiratory viral panel on cultures Due to recurrence and 2 month course - Pulmonary eval Steroids, nebs Hypothyroid Levothyroxine DVT prophylaxis Lovenox Full Code Quality Stroke Does the patient have a stroke diagnosis?: No VTE Prior VTE?: No VTE Risk Level:: Medical - moderate - high VTE Device Contraindication: Treatment Not Indicated VTE Drug Contraindication: N/A - Med Ordered
[2024-09-01 13:35] LABS: Appearance Urine Clear; Glucose Urine UA Negative (Negative); PH 5.5 (5.0-9.0); Specific Gravity - Urine >= 1.030 (1.005-1.025)
[2024-09-01 13:48] LABS: Cannabinoid Screen Urine Not Detected (Not Detect)
--- NOTE | 2024-09-01 13:50 | PHA.MEDREC ---
Addendum entered by Kita Panda angelina 09/01/24 14:35: MED REC REVIEWED BY [facility] Original Note: Pharmacy Consult ? Medication Reconciliation Pharmacy has completed the medication reconciliation. Spoke with pt and she confirmed her medications. Pt states she still has Cyclobenzapirine, Cepacol, Ipratropium Albuterol and Lorazepam at home she uses as needed. Pt states she has not been able to take any medication in about 2 days.
[2024-09-01] MEDS: 0.9 % Sodium Chloride Flush 3 ML SYRINGE IVFLUSH (16:33)
--- NOTE | 2024-09-01 16:35 | P.CONPL_ITS ---
History of Present Illness History of Present Illness Consult date: 09/01/24 Chief complaint: Abnormal CT chest, hypoxia Narrative: 54-year-old lady active 30+ pack-year smoker with underlying COPD, hypothyroidism, mood disorder, and substance abuse admitted on 09/01/2024 with progressive dyspnea for several months with nonproductive cough. Her ER workup is significant for CT chest showing bilateral mild hazy peribronchovascular infiltrates and leukocytosis. Patient was started on empiric antibiotics and systemic glucocorticoids and admitted to telemetry osman. Of note, her drug screen is positive for cocaine. Review of Systems 2 Constitutional: Constitutional: Denies daytime sleepiness, Denies excessive sweating, Reports fatigue, Denies fever(s), Denies lethargy, Reports malaise, Denies night sweats, Denies snoring and Denies weight loss Eyes: Eyes: Denies blurry vision and Denies itchy eyes ENT: Denies nasal congestion, Denies post nasal drip, Denies sinus pain, Denies sinus pressure and Denies other ( Thrush) Cardiovascular: Cardiovascular: Denies chest pain, Denies pedal edema, Reports dyspnea, Reports dyspnea on exertion, Denies orthopnea and Denies paroxysmal nocturnal dyspnea Respiratory: Respiratory: Reports cough, Denies hemoptysis, Denies excessive phlegm production, Reports dyspnea, Reports dyspnea on exertion, Denies snoring and Denies wheezing Gastrointestinal: Gastrointestinal: Denies abdominal pain and Denies heartburn Musculoskeletal: Musculoskeletal: Denies myalgias, Denies arthralgias and Denies joint swelling Integumentary/Breasts: Skin/Breast: Denies rash Neurologic: Denies memory loss and Denies seizure-like activity Psychiatric: Psychiatric: Denies abnormal sleep pattern, Denies anxiety and Denies memory loss Endocrine: Endocrine: Denies excessive sweating, Reports fatigue and Denies heat intolerance Hematologic/Lymphatic: Hematologic/Lymphatic: Denies easy bruising Allergic/Immunologic: Allergic/Immunologic: Denies itchy eyes, Denies seasonal rhinorrhea and Denies wheezing PMFSH Past Medical History Medical History Hypothyroidism GERD (gastroesophageal reflux disease) Mood disorder COPD (chronic obstructive pulmonary disease) Social History Social History Alcohol intake: former Comment: refuses bed alarms Patient Tobacco Use Status: Current everyday Tobacco user Smoked in Last 30 Days: Yes Advance Directives: Yes Advance Directives on File: Yes Advance Directives Date on File: 05/17/23 Nutrition Risks: No Nutritional Risk and Difficulty swallowing service: No Meds Allergies Allergy/AdvReac Type Severity Reaction Status Date / Time iodine (IODINE) Allergy Unknown UNKNOWN Verified 09/01/24 09:20 shellfish Allergy Unknown Anaphylaxis Uncoded 05/17/23 00:29 Active Medications: Current Medications Acetaminophen (Acetaminophen 325 Mg Tablet) 650 mg PO Q6H PRN PRN Reason: Pain, Mild 1-3,fever,headache Albuterol/Ipratropium (Albuterol/Iprat 2.5/0.5mg 3 Ml Ampul.Neb) 3 ml INHALE RQ4H WHILE AWAKE PRN PRN Reason: sob Azithromycin (Azithromycin 500 Mg Tablet) 500 mg PO Q24H EMEKA Benzocaine (Throat Lozenge, Medicated Lozenge) 1 lozenge MUCOUS MEM Q2H PRN PRN Reason: Sore Throat Calcium Carbonate (Calcium Carbonate 750 Mg Tab.Chew) 750 mg PO Q4H PRN PRN Reason: Heartburn Ceftriaxone Sodium (Ceftriaxone Sodium 1 Gm Vial) 1 gm IVPUSH Q24H EMEKA Cyclobenzaprine HCl (Cyclobenzaprine Hcl 10 Mg Tablet) 10 mg PO BID PRN PRN Reason: Muscle Spasm Duloxetine HCl (Duloxetine Hcl 60 Mg Capsule.Dr) 60 mg PO DAILY EMEKA Enoxaparin Sodium (Enoxaparin Sodium 40 Mg/0.4 Ml Syringe) 40 mg SUBCUT Q24H [facility] Gabapentin (Gabapentin 400 Mg Capsule) 800 mg PO DAILY EMEKA Levetiracetam (Levetiracetam 500 Mg Tablet) 500 mg PO BID [facility] Levothyroxine Sodium (Levothyroxine Sodium 112 Mcg Tablet) 112 mcg PO DAILY@0600 [facility] Levothyroxine Sodium (Levothyroxine Sodium 25 Mcg Tablet) 25 mcg PO DAILY@0600 [facility] Lorazepam (Lorazepam 0.5 Mg Tablet) 0.5 mg PO DAILY PRN PRN Reason: Anxiety Magnesium Hydroxide (Milk Of Magnesia 30 Ml Oral.Susp) 30 ml PO DAILY PRN PRN Reason: Constipation Melatonin (Melatonin 3 Mg Tablet) 6 mg PO BEDTIME PRN PRN Reason: Insomnia Methylprednisolone Sodium Succinate (Methylprednisolone Sod Succ 40 Mg/Ml Vial) 40 mg IVPUSH Q12H [facility] [place] Last Admin: 09/01/24 14:46 Dose: Not Given Omeprazole (Omeprazole 20 Mg Capsule.Dr) 20 mg PO DAILY@0630 [facility] Sodium Chloride (0.9 % Sodium Chloride Flush 3 Ml Syringe) 3 ml IVFLUSH QSHIFT [facility] [place] Last Admin: 09/01/24 16:33 Dose: 3 ml Tiotropium Baker (Tiotropium Baker 2.5 Mcg 1 Puff/2.5 Mcg Mist.Inhal) 1 puff INHALE RDAILY [facility] Trazodone HCl (Trazodone Hcl 50 Mg Tablet) 50 mg PO BEDTIME [facility] [place] Vitamin D (Cholecalciferol (Vitamin D3) 25 Mcg Tablet) 50 mcg PO DAILY [facility] Home Medications ?Medication ?Instructions ?Recorded ?Confirmed ?Last Taken ?Type albuterol sulfate 90 mcg/actuation 2 puff inhalation Q 4H PRN wheezing 05/17/23 09/01/24 Unknown History aerosol inhaler blood sugar diagnostic (FreeStyle 05/17/23 Unknown H istory Lite Strips) cholecalciferol (vitamin D3) 50 50 mcg PO DAILY 09/01/24 08/30/24 History mcg (2,000 unit) tablet (Vitamin D3) cyclobenzaprine 10 mg tablet 10 mg PO BID PRN muscle s pasm 05/17/23 09/01/24 Unknown History duloxetine 60 mg capsule,delayed 60 mg PO DAILY 09/01/24 08/30/24 History release gabapentin 800 mg tablet 800 mg PO DAILY 05/17/2308/30/24 History ipratropium 0.5 mg-albuterol 3 mg 3 ml inhalation Q6H PRN Shortness 05/17/23 09/01/24 Unknown History (2.5 mg base)/3 mL nebulization Of Breath Or Wheezing soln levothyroxine 137 mcg tablet 137 mcg PO DAILY@0600 09/01/24 08/30/24 History nabumetone 750 mg tablet 750 mg PO BID 05/17/2309/0108/30/24 History omeprazole 20 mg capsule,delayed 20 mg PO DAILY@0630 0 05/17/23 09/01/24 08/30/24 History release trazodone 50 mg tablet 50 mg PO BEDTIME 05/17/2308/30/24 History umeclidinium 62.5 mcg/actuation 1 inh inhalation DAILY 05/17/23 09/01/24 08/30/24 History blister powder for inhalation (Incruse Ellipta) levetiracetam 500 mg tablet 500 mg PO BID 09/01/2408/30/24 History Physical Exam 2 Vital Signs: Vital Signs: Last Vital Signs Temp 97.8 F 09/01/24 14:55 Pulse 74 09/01/24 14:55 Resp 21 H 09/01/24 14:55 BP 114/72 09/01/24 14:55 Pulse Ox 96 09/01/24 14:55 O2 Del Method Nasal Cannula 09/01/24 14:55 O2 Flow Rate 2 09/01/24 14:55 Oxygen Flow Rate 3 09/01/24 09:13 BMI result Body Mass Index 38.2 Const: General: no acute distress and alert Nutritional Appearance: not obese Orientation/consciousness: Other orientation findings ( oriented) HEENT: Head: Yes atraumatic Eyes: General: appearance normal, both eyes and all related structures S clerae: sclerae normal EOM: EOMs intact bilaterally Neck: Neck: Yes supple Lymphatic: no lymphadenopathy noted Resp: Effort & Inspection: tachypneic and no use of accessory muscles A uscultation: wheezes (Mild bilateral expiratory) Cardio: Rate: regular rate Rhythm: regular rhythm Heart sounds: no gallops, no murmurs and no rubs GI: Palpation (GI): Soft to palpation and Other GI palpation findings present ( Nontender) Auscultation: normal bowel sounds Skin: General skin exam: other ( warm) Extrem: General: No clubbing, No cyanosis and No edema Results Laboratory Findings 09/01/24 09:36 09/01/24 09:36 Abnormal lab findings: Abnormal Labs 09/01/24 09/01/24 09/01/24 09:36 09:44 13:20 WBC 14.1 H Plt Count 121 L Neut % (Auto) 77.7 H Lymph % (Auto) 16.1 L Abs Immat Gran (auto) 0.04 H Absolute Neuts (auto) 10.9 H VBG pH 7.48 H VBG HCO3 21 L Chloride 110 H Carbon Dioxide 21 L BUN 21 H AST 33 H C-Reactive Protein 3.50 H Ur Specific [place] >= 1.030 H Urine Cocaine Screen POSITIVE H Assessment and Plan (1) Acute respiratory failure with hypoxia: Status: Acute (2) COPD (chronic obstructive pulmonary disease): Status: Acute (3) Acute lung injury: Status: Acute (4) Substance abuse: Status: Acute Plan Impression: 54-year-old lady with underlying COPD, substance abuse, hypothyroidism admitted with progressive dyspnea and hypoxia with CT chest consistent with acute lung injury, likely secondary to cocaine abuse, though infectious process is also possible. Recommendations: Agree with empiric community-acquired pneumonia antibiotic coverage in systemic glucocorticoids at an equivalent of 60 mg prednisone daily. Procedures Date of Service Date of Service: 09/01/24
[2024-09-02 03:06] VITALS: BP 117/62; PULSE 67; RESP 20; TEMP 36.5; O2SAT 96
[2024-09-02 06:38] LABS: Hematocrit 38.7 % (37.0-47.0); Hemoglobin 12.9 g/dl (12.0-16.0); Mean Corpuscular HGB Conc 33.3 g/dl (31.0-35.0); Mean Corpuscular Hemoglobin 30.0 pg (27.0-33.0); Mean Corpuscular Volume 90.0 fL (80.0-98.0); NRBC Abs Auto 0.000 X10*3/uL (0.0-0.012); NRBC Pct Auto 0.0 /100WBC (0.0-0.2); Red Blood Count 4.30 X10*6/uL (4.20-5.50); White Blood Count 9.6 X10*3/uL (4.8-10.8)
[2024-09-02 06:39] LABS: PLT ABN DIST 1; Platelet Count 97 X10*3/uL (160-400)
[2024-09-02 06:45] LABS: Anion Gap 13 (12-20); Blood Urea Nitrogen 19 mg/dL (9-16); Calcium 9.0 mg/dL (8.4-10.2); Carbon Dioxide 22 mmol/L (22-29); Chloride 111 mmol/L (96-108); Creatinine Clr Calc Pharmacy 134.4; Estimated Glomerular Filt Rate > 60; Magnesium 1.9 mg/dL (1.6-2.6); Potassium 4.2 mmol/L (3.3-5.1); Sodium 142 mmol/L (135-145)
[2024-09-02 07:39] VITALS: BP 142/63; PULSE 66; RESP 18; TEMP 36.3; O2SAT 96
[2024-09-02] MEDS: Tiotropium Bromide 2.5 mcg 1 PUFF/2.5 MCG MIST.INHAL INHALE (07:52)
[2024-09-02 07:54] VITALS: PULSE 66; RESP 18; O2SAT 93
--- NOTE | 2024-09-02 08:37 | PM.DS ---
DS: Providers Provider Date of Service: 09/02/24 Date of admission: 09/01/24 12:15 Date of discharge: 09/02/24 Primary care physician: Nonstaff Physician Consults: 09/01/24 13:06 Consult to Pulmonology Routine Consulting Provider: [facility] [place] Reason for consultation: recurrent atypical pneumonia DS: Diagnosis Discharge Diagnosis (1) Acute respiratory failure with hypoxia: Status: Acute (2) COPD (chronic obstructive pulmonary disease): Status: Acute (3) Acute lung injury: Status: Acute (4) Substance abuse: Status: Acute DS: Summary Hospital Course Hospital Course: from initial hpi: 54F PMH COPD, mood disorder, hypothryoid, GERD, presented with sob. Patient states symptoms ongoing for about 2 months prior to presentation. Reports gradual onset and worsening of shortness breath, subjective fevers and chills, diaphoresis, cough-nonproductive, denies any sick contacts, recent travel. Reports symptoms similar to previous admission in May 2023 for severe atypical pneumonia requiring high-flow oxygen. In ED CT chest with bilateral opacities. 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 Ideally patient would stay longer in the hospital to follow up cultures and ensure recovery, however, patient wanted to be discharged home, was on room air saturating 97% will be discharged on 5 more days of prednisone, patient was not interested in addiction services. Time Attestation Discharge Coordination Time (in mins): 32 Quality: Safe Use of Opioids Does Pt have an Active Cancer Diagnosis on the Problem List?: No Quality: Stroke Does the patient have a stroke diagnosis?: No Physical Exam Vital Signs: Vital Signs: Last Vital Signs Temp 97.4 F 09/02/24 07:39 Pulse 66 09/02/24 07:54 Resp 18 09/02/24 07:54 BP 142/63 H 09/02/24 07:39 Pulse Ox 96 09/02/24 07:39 O2 Del Method Nasal Cannula 09/02/24 07:39 O2 Flow Rate 2 09/02/24 07:39 Oxygen Flow Rate 3 09/01/24 09:13 BMI result Body Mass Index 38.2 General: AO X 3, no acute distress Resp: CTA bilateral, no accessory muscles used CVS: S1,S2,RRR GI: soft, non tender, non distended Neuro: motor grossly intact, alert Psych: appropriate affect, appropriate insight DS: Data Data Completed and Pending Completed studies during hospitalization [Text1]: Procedures Assistance with Respiratory Ventilation, Less than 24 Consecutive Hours, Continuous Positive Airway Pressure (05/17/23) Labs on day of discharge: Laboratory Results - last 24 hr 09/01/24 09/01/24 09/01/24 09:34 09:36 09:44 WBC 14.1 H RBC 4.94 D Hgb 15.1 D Hct 44.1 D MCV 89.3 MCH 30.6 MCHC 34.2 RDW 13.8 Plt Count 121 L MPV Not Reportable Immature Gran % (Auto) 0.3 Neut % (Auto) 77.7 H Lymph % (Auto) 16.1 L [place] % (Auto) 4.6 Eos % (Auto) 0.9 Baso % (Auto) 0.4 Lymph # (Auto) 2.3 [place] # (Auto) 0.6 Eos # (Auto) 0.1 Baso # (Auto) 0.1 Abs Immat Gran (auto) 0.04 H Absolute Neuts (auto) 10.9 H Absolute Nucleated RBC 0.000 Nucleated RBC % (auto) 0.0 Smear Tech's Comments VERIFIED D-Dimer High Sensitivty VBG pH 7.48 H VBG pCO2 28 VBG pO2 72 VBG HCO3 21 L VBG O2 Saturation 95.0 VBG Base Excess -1.0 Sodium 142 Potassium 3.8 Chloride 110 H Carbon Dioxide 21 L Anion Gap 15 BUN 21 H Creatinine 0.77 Estim Creat Clear Calc 108.2 Estimated GFR > 60 Random Glucose 104 Lactic Acid 1.6 Calcium 9.5 Magnesium 1.7 Total Bilirubin 0.3 Direct Bilirubin 0.1 AST 33 H ALT 24 Alkaline Phosphatase 102 Troponin I High Sens 3.4 C-Reactive Protein 3.50 H B-Natriuretic Peptide < 10 Total Protein 7.4 Albumin 4.1 Lipase 20 Procalcitonin 0.03 Urine Color Urine Appearance Urine pH Ur Specific [place] Urine Protein Urine Glucose (UA) Urine Ketones Urine Blood Urine Nitrite Ur Leukocyte Esterase Urine Opiates Screen Ur Buprenorphine Scrn Ur Oxycodone Screen Urine Methadone Screen Urine Fentanyl Screen Ur Barbiturates Screen Ur Phencyclidine Scrn Ur Amphetamines Screen U Benzodiazepines Scrn Urine Cocaine Screen U Marijuana (THC) Screen Influenza Type A (PCR) NEGATIVE Influenza Type B (PCR) NEGATIVE RSV RNA Qual (PCR) NEGATIVE SARS-CoV-2 RNA (RT-PCR) NEGATIVE 09/01/24 09/01/24 09/02/24 10:41 13:20 05:38 WBC 9.6 RBC 4.30 Hgb 12.9 Hct 38.7 MCV 90.0 MCH 30.0 MCHC 33.3 RDW 14.2 Plt Count 97 L MPV TNP Immature Gran % (Auto) Neut % (Auto) Lymph % (Auto) [place] % (Auto) Eos % (Auto) Baso % (Auto) Lymph # (Auto) [place] # (Auto) Eos # (Auto) Baso # (Auto) Abs Immat Gran (auto) Absolute Neuts (auto) Absolute Nucleated RBC 0.000 Nucleated RBC % (auto) 0.0 Smear Tech's Comments D-Dimer High Sensitivty 167 VBG pH VBG pCO2 VBG pO2 VBG HCO3 VBG O2 Saturation VBG Base Excess Sodium 142 Potassium 4.2 Chloride 111 H Carbon Dioxide 22 Anion Gap 13 BUN 19 H Creatinine 0.62 Estim Creat Clear Calc 134.4 Estimated GFR > 60 Random Glucose 112 Lactic Acid Calcium 9.0 Magnesium 1.9 Total Bilirubin Direct Bilirubin AST ALT Alkaline Phosphatase Troponin I High Sens C-Reactive Protein B-Natriuretic Peptide Total Protein Albumin Lipase Procalcitonin Urine Color Dark Yellow Urine Appearance Clear Urine pH 5.5 Ur Specific [place] >= 1.030 H Urine Protein Trace Urine Glucose (UA) Negative Urine Ketones Trace Urine Blood Negative Urine Nitrite Negative Ur Leukocyte Esterase Negative Urine Opiates Screen Not Detected Ur Buprenorphine Scrn Not Detected Ur Oxycodone Screen Not Detected Urine Methadone Screen Not Detected Urine Fentanyl Screen Not Detected Ur Barbiturates Screen Not Detected Ur Phencyclidine Scrn Not Detected Ur Amphetamines Screen Not Detected U Benzodiazepines Scrn Not Detected Urine Cocaine Screen POSITIVE H U Marijuana (THC) Screen Not Detected Influenza Type A (PCR) Influenza Type B (PCR) RSV RNA Qual (PCR) SARS-CoV-2 RNA (RT-PCR) Discharge Plan Discharge Anticipated Discharge Date/Time: 09/02/24 08:35 Patient Disposition: Home, Self-Care Discharge Diagnosis: cocaine induced lung injury Referrals: Physician,Nonstaff [Primary Care Provider, Medical] - 1 Week Discharge Medications: New prednisone 20 mg tablet 40 mg PO DAILY Qty: 10 0RF Continued levetiracetam 500 mg tablet 500 mg PO BID cyclobenzaprine 10 mg tablet 10 mg PO BID PRN (Reason: muscle spasm) levothyroxine 137 mcg tablet 137 mcg PO DAILY@0600 ipratropium-albuterol 0.5 mg-3 mg(2.5 mg base)/3 mL solution for nebulization 3 ml inhalation Q6H PRN (Reason: Shortness Of Breath Or Wheezing) nabumetone 750 mg tablet 750 mg PO BID trazodone 50 mg tablet 50 mg PO BEDTIME (DME) FreeStyle Lite Strips Strip MISCELLANEOUS BID gabapentin 800 mg tablet 800 mg PO DAILY omeprazole 20 mg capsule,delayed release(DR/EC) 20 mg PO DAILY@0630 albuterol sulfate 90 mcg/actuation HFA aerosol inhaler 2 puff inhalation Q4H PRN (Reason: wheezing) duloxetine 60 mg capsule,delayed release(DR/EC) 60 mg PO DAILY cholecalciferol (vitamin D3) [Vitamin D3] 50 mcg (2,000 unit) tablet 50 mcg PO DAILY Incruse Ellipta 62.5 mcg/actuation blister with device 1 inh inhalation DAILY Cepacol Sore Throat (fidel-men) 15-3.6 mg Lozenge 1 arnaldo mucous membrane Q2H PRN (Reason: Sore Throat) Qty: 10 0RF lorazepam [Ativan] 0.5 mg tablet 0.5 mg PO DAILY PRN (Reason: anxiety) Qty: 7 0RF Discharge Orders: Discharge Order (Routine); Ordered 09/02/24 Ordered By: Jalil Flores Diet: Advance to usual diet Activity on Discharge: As tolerated Stand Alone Forms: Patient Portal Discharge page Print Language: Cameroonian Care Plan Goals: recovery Health Concerns: cocaine induced lung injury Plan of Treatment: prednisone Assessment: see above
[2024-09-02 09:00] VITALS: O2SAT 97
--- NOTE | 2024-09-02 09:03 | MHC.CM.PN ---
IMM delivered. Patient resides w/ S.O. who is also [employer] (50 hrs/wk) and assists w/ all ADL's. Patient reports she is primarily bed-bound, but independently trasfers to w/c & commode. PCP Joy Chavez MD HCP on file and verified. DP: Medically cleared for dc home w/ resumption of [employer] services. Daughter will transport. Patient chooses to wait in dc lounge. RN aware.
[2024-09-02 09:55] LABS: Chlamydia pneumoniae PCR Not Detected (Not Detect.); Coronavirus 229E PCR Not Detected (Not Detect.); Coronavirus HKU1 PCR Not Detected (Not Detect.); Coronavirus NL63 PCR Not Detected (Not Detect.); Coronavirus OC43 PCR Not Detected (Not Detect.); Influenza A H1 PCR Not Detected (Not Detect.); Influenza A H1-2009 PCR Not Detected (Not Detect.); Influenza A H3 PCR Not Detected (Not Detect.); RSV PCR Not Detected (Not Detect.); Rhino/Enterovirus PCR Not Detected (Not Detect.); SARS-CoV-2 PCR Not Detected (Not Detect.)
== END 2024-09-02 09:15 | disposition home or self-care (01) | DRG 917 ==
LOC: HO.ED 12:08 → HO.EDOVER 13:12 → HO.S3 16:41
PROVIDERS: Admitting Provider Internal Medicine; Emergency Provider Emergency Medicine; Visit Provider Internal Medicine
DX: T40.5X1A Poisoning by cocaine, accidental (unintentional), initial encounter (principal); A41.9 Sepsis, unspecified organism; J44.1 Chronic obstructive pulmonary disease with (acute) exacerbation; J70.2 Acute drug-induced interstitial lung disorders; F39 Unspecified mood [affective] disorder; E03.9 Hypothyroidism, unspecified; Z20.822 Contact with and (suspected) exposure to COVID-19; Z79.890 Hormone replacement therapy; Z79.899 Other long term (current) drug therapy
CPT/HCPCS: 36415; 71250; 80048; 80076; 80307; 81003; 82803; 83605; 83690; 83735; 83880; 84145; 84484; 85025; 85027; 85379; 86140; 87040; 87633; 87637; 93005; 94640; 99285; J0131; J0696; J1271; J2405; J2919

== ENCOUNTER → 2024-09-01 09:14 | Outpatient (BNV) | payer OTHER, SELFPAY | PROVIDERS: Admitting Provider Internal Medicine; Emergency Provider Emergency Medicine; Visit Provider Internal Medicine | DX: R94.31 Abnormal electrocardiogram [ECG] [EKG] (principal); R06.00 Dyspnea, unspecified | CPT/HCPCS: 93010 ==

== ENCOUNTER → 2024-09-01 10:21 | Outpatient (BNV) | payer OTHER, SELFPAY | PROVIDERS: Emergency Provider Emergency Medicine; Visit Provider Radiology Diagnostic Radiology | DX: R91.8 Other nonspecific abnormal finding of lung field (principal) | CPT/HCPCS: 71250 ==

== ENCOUNTER → 2024-09-01 12:15 | Outpatient (BNV) | payer OTHER, SELFPAY | PROVIDERS: Admitting Provider Internal Medicine; Emergency Provider Emergency Medicine; Visit Provider Internal Medicine | DX: A41.9 Sepsis, unspecified organism (principal); J18.9 Pneumonia, unspecified organism; R06.02 Shortness of breath; F39 Unspecified mood [affective] disorder | CPT/HCPCS: 99223 ==

== ENCOUNTER → 2024-09-01 12:15 | Outpatient (BNV) | payer OTHER, SELFPAY | PROVIDERS: Admitting Provider Internal Medicine; Emergency Provider Emergency Medicine; Visit Provider Internal Medicine Pulmonary Disease | DX: J96.01 Acute respiratory failure with hypoxia (principal); J44.9 Chronic obstructive pulmonary disease, unspecified; S27.309A Unspecified injury of lung, unspecified, initial encounter; F19.10 Other psychoactive substance abuse, uncomplicated | CPT/HCPCS: 99222 ==